=== PATIENT | male | born 1955 | race Two or more races ===

== ENCOUNTER → 2024-05-18 | Outpatient (BNVA) | payer MEDICARE, MEDICAID, SELFPAY | END | disposition home or self-care (01) | PROVIDERS: PCP Nurse Practitioner Family; Referring Provider Nurse Practitioner Family; Visit Provider Urology | DX: N32.3 Diverticulum of bladder (principal); N32.89 Other specified disorders of bladder; N40.1 Benign prostatic hyperplasia with lower urinary tract symptoms; N13.8 Other obstructive and reflux uropathy; F17.210 Nicotine dependence, cigarettes, uncomplicated; E78.00 Pure hypercholesterolemia, unspecified; Z86.73 Personal history of transient ischemic attack (TIA), and cerebral infarction without residual deficits; J44.9 Chronic obstructive pulmonary disease, unspecified | CPT/HCPCS: 52224; 81003; 96372; 99212; A4217; A4649; C1894; J3260; A9270; G0463 ==

== ENCOUNTER → 2024-08-16 | Outpatient (BNVA) | payer MEDICARE, MEDICAID, SELFPAY | END | disposition home or self-care (01) | PROVIDERS: PCP Nurse Practitioner Family; Referring Provider Nurse Practitioner Family; Visit Provider Urology | DX: N40.1 Benign prostatic hyperplasia with lower urinary tract symptoms (principal); R39.12 Poor urinary stream; E78.00 Pure hypercholesterolemia, unspecified; J44.9 Chronic obstructive pulmonary disease, unspecified; Z86.73 Personal history of transient ischemic attack (TIA), and cerebral infarction without residual deficits | CPT/HCPCS: 51741; 51798 ==

== ENCOUNTER → 2024-10-29 | Outpatient (BNVA) | payer MEDICARE, MEDICAID, SELFPAY | END | disposition home or self-care (01) | PROVIDERS: PCP Nurse Practitioner Family; Referring Provider Nurse Practitioner Family; Visit Provider Urology | DX: N40.1 Benign prostatic hyperplasia with lower urinary tract symptoms (principal); N13.8 Other obstructive and reflux uropathy; R31.29 Other microscopic hematuria; Z80.42 Family history of malignant neoplasm of prostate; F17.210 Nicotine dependence, cigarettes, uncomplicated; E78.00 Pure hypercholesterolemia, unspecified; Z86.73 Personal history of transient ischemic attack (TIA), and cerebral infarction without residual deficits; J44.9 Chronic obstructive pulmonary disease, unspecified | CPT/HCPCS: 81003; 99212; G0463 ==

== ENCOUNTER → 2024-12-11 | Outpatient (BNVA) | payer MEDICARE, MEDICAID, SELFPAY | END | disposition home or self-care (01) | PROVIDERS: PCP Nurse Practitioner Family; Referring Provider Nurse Practitioner Family; Visit Provider Urology | DX: N40.1 Benign prostatic hyperplasia with lower urinary tract symptoms (principal); N13.8 Other obstructive and reflux uropathy; R39.198 Other difficulties with micturition; E78.00 Pure hypercholesterolemia, unspecified; Z86.73 Personal history of transient ischemic attack (TIA), and cerebral infarction without residual deficits; J44.9 Chronic obstructive pulmonary disease, unspecified; F17.210 Nicotine dependence, cigarettes, uncomplicated | CPT/HCPCS: 76872 ==

== ENCOUNTER → 2025-01-04 | Outpatient (CLI) | payer MEDICARE, MEDICAID, SELFPAY ==
--- NOTE | 2025-01-04 12:30 | XR_ITS ---
Examination: Abdomen sonogram, complete Date and time of exam: January 04, 2025 1226 hours INDICATIONS: Weight loss beginning several months ago. Technique: Multiple real-time grayscale transabdominal sonographic images of the abdomen have been obtained. Findings: Contracted gallbladder no stones Common bile duct 0.2 cm Pancreatic head 1.83 cm Liver 15.4 cm fatty infiltration Normal hepatopedal portal venous flow Patent IVC Right kidney 11.8 cm cortex 1.3 cm Left kidney 10.5 cm cortex 1.7 cm Moderate renal parenchymal scar formation Spleen 8.0 cm IMPRESSION: Recommend repeating the gallbladder portion of the study with fasting Fatty infiltration throughout the liver Moderate bilateral renal parenchymal scar formation
== END | disposition home or self-care (01) ==
LOC: CDIM 12:06
DX: K76.0 Fatty (change of) liver, not elsewhere classified (principal); N28.89 Other specified disorders of kidney and ureter
CPT/HCPCS: 76700

== ENCOUNTER → 2025-03-01 | Outpatient (CLI) | payer MEDICARE, MEDICAID, SELFPAY ==
--- NOTE | 2025-03-01 10:21 | XR_ITS ---
Examination: CT chest, without intravenous contrast. Sagittal and coronal 2-D reconstructions. Exam date and time: March 01, 2025 1036 hours, comparison August 27, 2024 INDICATIONS: Bilateral pulmonary nodules dating to CT chest March 29, 2023 CTDI:vol (mGy) 7.03 DLP: (mGycm) 265 Technique: Multiple 3.0 mm axial sections of the chest to been obtained. Bone and lung density settings are obtained. Sagittal and coronal 2-D reconstructions have been obtained. Low dose protocols were performed. One or more of the following dose reduction techniques were used; automated exposure control, adjustment of the mA and/or KV according to patient size, use of iterative reconstruction technique. Findings: No thoracic aortic aneurysm dilatation No pulmonary artery emboli. Significant calcification left anterior descending coronary artery. No paratracheal tracheobronchial or bronchopulmonary adenopathy Stable bilateral pulmonary nodules No new pulmonary nodules COPD with areas of airspace destruction. No pneumonia or pulmonary edema No visualized liver or splenic lesion Tiny probable renal arterial calcifications IMPRESSION: Stable bilateral subcentimeter pulmonary nodules No new pulmonary nodules
== END | disposition home or self-care (01) ==
DX: R91.8 Other nonspecific abnormal finding of lung field (principal); Z87.891 Personal history of nicotine dependence
CPT/HCPCS: 71250

== ENCOUNTER → 2025-04-12 | Outpatient (BNVA) | payer MEDICARE, MEDICAID, SELFPAY | END | disposition home or self-care (01) | PROVIDERS: PCP Nurse Practitioner Family; Referring Provider Nurse Practitioner Family; Visit Provider Urology | DX: N40.1 Benign prostatic hyperplasia with lower urinary tract symptoms (principal); N13.8 Other obstructive and reflux uropathy; R35.0 Frequency of micturition; R31.29 Other microscopic hematuria; Z80.42 Family history of malignant neoplasm of prostate; F17.210 Nicotine dependence, cigarettes, uncomplicated; Z71.6 Tobacco abuse counseling | CPT/HCPCS: 81003; 99212; 99213; G0463 ==

== ENCOUNTER 2025-04-29 13:20 | Inpatient (IN) | payer MEDICARE, MEDICAID, SELFPAY ==
[2025-04-29 13:36] VITALS: BP 132/81; PULSE 90; RESP 20; TEMP 36.9; O2SAT 93
--- NOTE | 2025-04-29 13:40 | XR_ITS ---
Examination: CT abdomen and pelvis without contrast. Coronal 3-D reconstructions. Sagittal 2-D reconstructions. Date and time: April 28, 2025, 1457 hours INDICATIONS: Onset abdominal pain today COMPARISON: 03/08/2024 CTDI: vol (mGy): 4.81 DLP: (mGycm): 253 Technique: Axial images of the abdomen have been obtained, 3 mm slice thickness Intravenous contrast material has not been administered. Low dose protocols were performed. One or more of the following dose reduction techniques were used; automated exposure control, adjustment of the mA and/or KV according to patient size, use of iterative reconstruction technique. Findings: No focal liver or splenic lesions Tiny gallstones No pancreatic mass Perinephric stranding Tiny 1 to 3 mm right renal calculi, no hydronephrosis or ureteral calculi Fluid distended small bowel loops No diverticulitis Transverse prostate dimension 4.7 cm No pericecal inflammatory change Prominent osteopenia Mild urinary bladder wall thickening IMPRESSION: Tiny nonobstructing right renal calculi Fluid distended small bowel loops, consider early small bowel obstruction Consider Gastrografin small bowel series follow-up
--- NOTE | 2025-04-29 13:40 | PD.EDRME ---
Rapid Medical Screening Exam [facility] Arrival date/time: 04/29/25 13:20 62-year-old male with no known medical history presents to the emergency room with a chief complaint of right sided abdominal pain x 3 days I have greeted and performed a focused initial assessment of this patient. A comprehensive ED assessment and evaluation of the patient, analysis of all test results, and completion of the medical decision making process will be conducted by additional ED providers. Chief Complaint: Abdominal Pain Time Seen by Provider: 04/29/25 13:35 Vital signs: Vital Signs Temperature 98.5 F 04/29/25 13:36 Pulse Rate 90 04/29/25 13:36 Respiratory Rate 20 04/29/25 13:36 Blood Pressure 132/81 H 04/29/25 13:36 Pulse Oximetry (%) 93 L 04/29/25 13:36 Oxygen Delivery Method Room Air 04/29/25 13:36 Vital signs reviewed by provider: Yes Exam: Right lower quadrant abdominal tenderness, right upper quadrant abdominal tenderness Clear bilateral lung sounds Clinical Impression: Cholelithiasis/cholecystitis/appendicitis/gastroenteritis
--- NOTE | 2025-04-29 13:42 | XR_ITS ---
Examination: Abdomen sonogram, Limited Date and time of exam: 04/29/2025 at 2:22 p.m. INDICATION: Right upper quadrant and right lower quadrant pain for 3 days. Technique: Real-time pino scale transabdominal sonographic images of the upper abdomen obtained. Comparison: Abdominal ultrasound 01/04/2025 Findings: The liver exhibits mildly increased echotexture which is nonspecific. No liver mass identified. Hepatic size is within normal limits, measuring 13.8 cm in length. Patent main portal vein with hepatopetal flow. Patent hepatic veins. The gallbladder is distended but without wall thickening, gallstones or pericholecystic fluid. No abnormal bile duct dilatation. The CBD is measured at 3 mm. The pancreas is obscured by bowel gas. No right upper quadrant ascites. IMPRESSION: Mild diffusely increased hepatic echotexture is nonspecific and could be due to hepatic steatosis, chronic hepatitis in the appropriate clinical setting, amongst other possibilities. No focal liver mass detected. No evidence for cholelithiasis, acute cholecystitis or biliary ductal obstruction.
[2025-04-29] MEDS: ACETAMINOPHEN 500 MG TABLET 1000 MG PO (13:59)
[2025-04-29 14:28] LABS: Basophils # (Auto) 0.0 Thou/mm3 (0.0-0.2); Basophils % (Auto) 0 % (0-2.5); Eosinophils # (Auto) 0.0 Thou/mm3 (0.0-0.5); Eosinophils % (Auto) 0 % (0-10); Hematocrit 38.1 % (41.0-53.0); Hemoglobin 13.1 g/dL (13.5-16.0); Immature Granulocytes Auto 0.05 Thou/mm3 (0.00-0.00); Lymphocytes # (Auto) 0.6 Thou/mm3 (1.0-4.8); Lymphocytes % (Auto) 5 % (10-50); Mean Corpuscular HGB Conc 34.4 g/dl (31.0-37.0); Mean Corpuscular Hemoglobin 32.2 pg (25.0-35.0); Mean Corpuscular Volume 94 fL (80-100); Monocytes # (Auto) 0.4 Thou/mm3 (0.0-0.8); Monocytes % (Auto) 3 % (0-12); Neutrophils # (Auto) 12.0 Thou/mm3 (1.8-7.7); Neutrophils % (Auto) 92 % (37-80); Nucleated Red Blood Cell # 0.00 Thou/mm3 (0.00-0.00); Nucleated Red Blood Cell % 0 /100 WBC (0); Platelet Count 205 Thou/mm3 (140-440); RDW Standard Deviation 47.8 fL (35.1-43.9); Red Blood Count 4.07 Miln/mm3 (4.50-5.90); White Blood Count 13.1 Thou/mm3 (3.8-10.6)
[2025-04-29 14:56] LABS: Alanine Aminotransferase 10 U/L (10-49); Albumin, Serum 4.8 gm/dL (3.4-4.8); Albumin/Globulin Ratio 1.7 (1.2-2.2); Alkaline Phosphatase 70 U/L (46-116); Anion Gap 11 (7-16); Aspartate Amino Transferase 21 U/L (0-34); BUN/Creatinine Ratio 14 Ratio (12-20); Bilirubin,Total 1.2 mg/dL (0.3-1.2); Blood Urea Nitrogen 18 mg/dL (9-23); Calcium 9.7 mg/dL (8.3-10.6); Calcium (Corrected) 9.7 mg/dL (8.5-10.1); Carbon Dioxide 25.6 mMol/L (20.0-31.0); Chloride 101 mMol/L (98-107); Creatinine (Component) 1.3 mg/dL (0.6-1.3); Globulin 2.9 gm/dL (2.3-3.5); Glucose 143 mg/dL (74-106); Lipase 18 U/L (12-53); Osmolality,Calculated 279 (275-295); Potassium 3.7 mMol/L (3.4-5.1); Sodium 138 mMol/L (136-145); Total Protein 7.7 gm/dL (5.7-8.2); eGFR 60 See Note
--- NOTE | 2025-04-29 16:41 | EDNOTE_ITS ---
<Statement entered by Shanthi Chi MD - 05/01/25 16:16> As co-signing physician, I was present and available for consult prn. I concur with the plan and care as documented by the midlevel provider. ED General RME/HPI General Chief complaint: Abdominal Pain Stated complaint: R) RIB/ABD PAIN Time Seen by Provider: 04/29/25 13:35 Arrival date/time: 04/29/25 13:20 CC: Abdominal pain HPI onset 3 days ago progressive increase in severity intermittent nausea no vomiting no BM in the past 3 days no prior history of similar events medications are atorvastatin and tamoxifen. Patient denies chest pain shortness of breath difficulty breathing. RME / HPI RME / HPI narrative: 04/29/25 13:20 62-year-old male with no known medical history presents to the emergency room with a chief complaint of right sided abdominal pain x 3 days I have greeted and performed a focused initial assessment of this patient. A comprehensive ED assessment and evaluation of the patient, analysis of all test results, and completion of the medical decision making process will be conducted by additional ED providers. Exam: Right lower quadrant abdominal tenderness, right upper quadrant abdominal tenderness Clear bilateral lung sounds Impression: Cholelithiasis/cholecystitis/appendicitis/gastroenteritis Related Data Home Medications ?Medication ?Instructions ?Recorded ?Confirmed atorvastatin 40 mg tablet 40 mg PO HS 10/15/20 5 gabapentin 600 mg tablet 600 mg PO Q12H 04/29/2509/18 Previous Rx's ?Medication ?Instructions ?Recorded tamsulosin 0.4 mg capsule 0.4 mg PO QDAY #30 caps 09/26 02/14 Allergies Allergy/AdvReac Type Severity Reaction Status Date / Time ibuprofen Allergy Mild itching Verified 04/29/25 13:26 Review of Systems Review of Systems Narrative Review of Systems: GEN: No fever, no chills, no weight loss EYES: No discharge, no visual changes, no pain HEENT: No ear pain, no congestion, no sore throat PULM: No shortness of breath, no cough, no congestion CV: No chest pain, no dyspnea on exertion, no palpitations GI: No nausea, no vomiting, no diarrhea, + pain, no constipation : No frequency, no urgency, no dysuria MUSC/SKEL: No joint pain, no back pain SKIN: No rash PSYCH: No hallucinations, no depression HEME/LYMPH: No easy bleeding or bruising tendencies NEURO: No weakness, no headache Past Medical History Past Medical History NEUROLOGIC: Positive Neurological Disorders (involuntary movements to upper and lower extremities, started 09/2020), Cerebrovascular Accident and Peripheral Neuropathy (lower limb nerve pain-takes medication) CARDIAC: Positive Cardiac Disorders (peripheral vascular angioplasty) and Hypercholesterolemia; Negative Congestive Heart Failure RESPIRATORY: Positive Chronic Obstructive Pulmonary Disease (COPD) GASTROINTESTINAL: Negative Gastrointestinal Disorders GENITOURINARY: Positive Genitourinary Disorders (trouble urinating) and Benign Prostatic Hyperplasia; Negative Renal Disease MUSCULOSKELETAL: Positive Musculoskeletal Disorders and Arthritis ENDOCRINE: Positive Graves' Disease; Negative Endocrine Disorders, Diabetes Mellitus Type 1 or Diabetes Mellitus Type 2 HEMATOLOGIC: Positive Blood Disorders and Anemia OTHER HISTORY: Positive Blood Transfusions (2009); Negative Blood Transfusion Reaction, Anesthesia Reactions or Cancer Surgical History SURGICAL: Positive Cardiac Surgery ( unplug veins from leg ) and Angiogram (peripheral vascular angioplasty with intervention of left AT); Negative Endocrine Surgery, Abdominal Surgery or Joint Replacement Social History SMOKING STATUS: Current every day smoker ED Exam Narrative Physical exam: [General: In moderate discomfort but not in any acute distress Head normocephalic HEENT: Within acceptable limits Neck is supple nontender Chest equal chest rise nontender to palpation Respiratory: Clear to auscultation no wheezes crackles or rubs CV: Rate rhythm is regular no murmurs rubs or clicks Abdomen is flat, diffusely tender throughout reflexive guarding but no rebound tenderness Back: No CVA tenderness no spinous process tenderness from cervical spine thoracic and lumbar spine Skin: Intact no petechiae rash induration ulceration or crepitus Extremities: Moving all extremity against resistance cap refill less than 2 seconds neurosensory intact Neuro: Awake alert oriented x3 Glascow coma 15 no focal deficits] Course Course Course Narrative: Patient's case clinical presentation laboratory results and imaging discussed with the resident for Dr. Rider who agrees except the patient for admission for SBO. Quality Measures none Orders Category Date Time Status Admit to Inpatient Status Routine Admission 04/29/25 17:19 Active Patient Condition Routine Admission 04/29/25 17:19 Ordered Continuous Pulse Oximetry NOW Care 04/29/25 17:19 Completed Insert NG / OG tube NOW Care 04/29/25 16:57 Active Miscellaneous Nursing Order NOW Care 04/29/25 17:27 Active Notify provider NEEDED Care 04/29/25 17:19 Active Obtain weight NOW Care 04/29/25 17:19 Active Vital Signs, Non-Routine [id number] Care 04/29/25 19:[address] abdomen pelvis wo con Stat Exams 04/29/25 13:40 Completed US gall bladder Stat Exams 04/29/25 13:42 Completed XR chest 1V post procedure Stat Exams 04/29/25 17:16 Completed XR small bowel single contrast Stat Exams 04/29/25 16:31 Ordered CBC AM DRAW Lab 04/30/25 05:00 Ordered CBC AM DRAW Lab 05/01/25 05:00 Ordered CBC AM DRAW Lab 05/02/25 05:00 Ordered CBC AM DRAW Lab 05/03/25 05:00 Ordered CBC AM DRAW Lab 05/04/25 05:00 Ordered CBC AM DRAW Lab 05/05/25 05:00 Ordered CBC Stat Lab 04/29/25 14:11 Completed CMP [Comprehensive Metabolic Panel] AM DRAW Lab 04/30/25 05:00 Ordered CMP [Comprehensive Metabolic Panel] AM DRAW Lab 05/01/25 05:00 Ordered CMP [Comprehensive Metabolic Panel] AM DRAW Lab 05/02/25 05:00 Ordered CMP [Comprehensive Metabolic Panel] AM DRAW Lab 05/03/25 05:00 Ordered CMP [Comprehensive Metabolic Panel] AM DRAW Lab 05/04/25 05:00 Ordered CMP [Comprehensive Metabolic Panel] AM DRAW Lab 05/05/25 05:00 Ordered CMP [Comprehensive Metabolic Panel] Stat Lab 04/29/25 14:11 Completed Lipase Stat Lab 04/29/25 14:11 Completed Magnesium AM DRAW Lab 04/30/25 05:00 Ordered Magnesium AM DRAW Lab 05/01/25 05:00 Ordered Magnesium AM DRAW Lab 05/02/25 05:00 Ordered Magnesium AM DRAW Lab 05/03/25 05:00 Ordered Magnesium AM DRAW Lab 05/04/25 05:00 Ordered Magnesium AM DRAW Lab 05/05/25 05:00 Ordered Phosphorous AM DRAW Lab 04/30/25 05:00 Ordered Phosphorous AM DRAW Lab 05/01/25 05:00 Ordered Phosphorous AM DRAW Lab 05/02/25 05:00 Ordered Phosphorous AM DRAW Lab 05/03/25 05:00 Ordered Phosphorous AM DRAW Lab 05/04/25 05:00 Ordered Phosphorous AM DRAW Lab 05/05/25 05:00 Ordered UA [Urinalysis] Stat Lab 04/29/25 16:36 Completed Urine Culture Stat Lab 04/29/25 16:36 Received Acetaminophen Ivpb [Ofirmev Inj] Med 04/29/25 17:29 Active 1,000 mg in 100 ml IV Q6HR Acetaminophen Tab [Tylenol ES Tab] Med 04/29/25 13:40 Discontinued 1,000 mg PO X1 ONE Enoxaparin [Lovenox] Med 04/30/25 09:00 Active 40 mg SC QDAY HYDROmorphone INJ [Dilaudid Inj] Med 04/29/25 17:24 Active 1 mg IVP Q4HR PRN LORazepam [Ativan Inj] Med 04/29/25 17:29 Discontinued 2 mg .ROUTE .STK-MED ONE Morphine* Inj Med 04/29/25 17:24 Active 4 mg IVP Q6HR PRN Morphine* Inj Med 04/29/25 17:18 Discontinued 4 mg IVP X1 ONE Ondansetron Inj [Zofran Inj] Med 04/29/25 17:19 Active 4 mg IVP Q6H PRN Ondansetron Inj [Zofran Inj] Med 04/29/25 17:18 Discontinued 4 mg IVP X1 ONE Ringers Lactated 1000 ml [Lactated Ringers] 1,000 ml Med 04/29/25 17:30 Active IV 75 mls/hr Ringers Lactated 1000 ml [Lactated Ringers] 1,000 ml Med 04/29/25 16:40 Discontinued IV 999 mls/hr Sodium Chloride 0.9% 1000 ml [Ns] 1,000 ml Med 04/29/25 16:40 Discontinued IV 125 mls/hr Code Status Routine Oth 04/29/25 17:19 Ordered Oxygen Delivery DAILY RT 04/29/25 17:21 Active Oxygen Delivery NOW RT 04/29/25 17:21 Active Vital Signs Vital signs: Vital Signs Temperature 98.5 F 04/29/25 13:36 Pulse Rate 90 04/29/25 13:36 Respiratory Rate 20 04/29/25 13:36 Blood Pressure 132/81 H 04/29/25 13:36 Pulse Oximetry (%) 93 L 04/29/25 13:36 Oxygen Delivery Method Room Air 04/29/25 13:36 Discharge Plan Plan Patient Disposition: Admit Acute Care w/in Hospital Problem List Clinical Impression: SBO (small bowel obstruction) TIFFANY/VALDEZ Supervising Physician TIFFANY/VALDEZ Supervising Physician: Lucho Blas ENP [facility] Clinical Information Provided by: patient Medical Records reviewed [facility] Meds/Rx considered, not ordered None Labs/Rad/Tests considered, not ordered None Chronic Illness/Social Conditions Explain: Hyperlipidemia prostatitis EKG EKG not done Labs Labs: interpreted by me Lab(s) Interpretation(s): CBC shows leukocytosis of 13.1 H&H of 13.1 and 38.1 respectively no thrombocytopenia CMP shows no significant electrolyte imbalances other than a glucose of 143 no renal impairment transaminitis or T. bili elevation Lipase at 18. Imaging Imaging interpretation: interpreted by me Imaging Interpretation(s): Gallbladder is unremarkable CT as interpreted by me read by radiology shows an SBO. Medication Administration(s) Medication Administration History Enoxaparin Sodium (Enoxaparin Sod Inj 40 Mg/0.4 Ml Syringe) 40 mg SC QDAY [facility] Stop: 05/14/25 08:59 Hydromorphone HCl (Hydromorphone Inj 2 Mg/Ml Vial) 1 mg IVP Q4HR PRN PRN Reason: Pain 8-10 Stop: 05/04/25 17:23 Lactated Ringer's (Lactated Ringers) 1,000 mls @ 75 mls/hr IV .[id number] ABRAHAM Stop: 05/29/25 17:29 Last Admin: 04/29/25 22:11 Dose: 75 mls/hr Documented By: AU Acetaminophen (Ofirmev Inj) 1,000 mg in 100 mls @ 250 mls/hr IV Q6HR ABRAHAM Stop: 04/30/25 12:23 Last Admin: 04/29/25 18:29 Dose: 250 mls/hr Documented By: BY Morphine Sulfate (Morphine Sulf Inj 4 Mg/Ml Vial) 4 mg IVP Q6HR PRN PRN Reason: pain 5-7 Stop: 05/04/25 17:23 Ondansetron HCl (Ondansetron Inj 2 Mg/Ml Inj 2 Ml) 4 mg IVP Q6H PRN; Protocol PRN Reason: NAUSEA OR VOMITING Stop: 05/29/25 17:18 Discontinued Medications Acetaminophen (Acetaminophen 500 Mg Tablet) 1,000 mg PO X1 ONE Stop: 04/29/25 13:41 Last Admin: 04/29/25 13:59 Dose: 1,000 mg Documented By: MIRANDA Lactated Ringer's (Lactated Ringers) 1,000 mls @ 999 mls/hr IV .Q1H1M ONE Stop: 04/29/25 17:40 Last Infusion: 04/29/25 19:42 Dose: Infused Documented By: Admin: 04/29/25 16:52 Dose: 999 mls/hr Documented By: RANULFO Sodium Chloride (Ns) 1,000 mls @ 125 mls/hr IV .Q8H ABRAHAM Stop: 05/29/25 16:39 Last Admin: 04/29/25 16:52 Dose: 125 mls/hr Documented By: RANULFO Lorazepam (Lorazepam 2 Mg/Ml Vial) Confirm Administered Dose 2 mg .ROUTE .STK- MED ONE Stop: 04/29/25 17:30 Last Admin: 04/29/25 19:31 Dose: Not Given Documented By: RANULFO Non-Admin Reason: Override Medication Comments: THIS MEDS WAS PULLED FOR PT [id number] FOR ACTIVE SZ, PT [id number] WAS NOT YET IN SYSTEM, MED WAS WASTED WITH RAYO CHEN Morphine Sulfate (Morphine Sulf Inj 4 Mg/Ml Vial) 4 mg IVP X1 ONE Stop: 04/29/25 17:19 Last Admin: 04/29/25 17:26 Dose: 4 mg Documented By: RANULFO Ondansetron HCl (Ondansetron Inj 2 Mg/Ml Inj 2 Ml) 4 mg IVP X1 ONE; Protocol Stop: 04/29/25 17:19 Last Admin: 04/29/25 17:26 Dose: 4 mg Documented By: RANULFO
[2025-04-29 16:45] LABS: Collection Type, Urine Clean Catch
[2025-04-29 16:49] VITALS: BP 128/75; PULSE 80; RESP 18; O2SAT 95
[2025-04-29] MEDS: RINGERS LACTATED 1000 ML 1,000 ML 999 ML IV (16:52)
[2025-04-29] MEDS: SODIUM CHLORIDE 0.9% 1000 ML 1,000 ML 125 ML IV (16:52)
[2025-04-29 17:02] LABS: Bilirubin,Urine Negative (Negative); Blood,Urine 3+ (Negative); Color,Urine Yellow (Lt Yel-Yel); Glucose, Urine Negative (Negative); Granular Casts,Urine < 1 /hpf (0-1); Hyaline Casts,Urine < 1 /hpf (0-1); Ketones,Urine Negative (Negative); Leukocyte Esterase,Urine Negative (Negative); Nitrite,Urine Negative (Negative); PH,Urine 6.0 (5.0-7.0); Protein,Urine 1+ (Neg - Trace); RBC,Urine 33 /hpf (0-3); Specific Gravity,Urine 1.019 (1.001-1.035); Squamous Epithelial Cell,Urine 4 /hpf (0-5); Urobilinogen,Urine Negative mg/dL (0.0-1.0); WBC,Urine 3 /hpf (0-5)
[2025-04-29 17:04] LABS: Clarity,Urine Hazy (Clear/Hazy)
--- NOTE | 2025-04-29 17:16 | XR_ITS ---
CLINICAL INDICATION: ng placement TECHNIQUE: XR chest 1V post procedure Exam date and time: 04/29/2025, 5:36 p.m. COMPARISON: Chest radiograph 10/14/2020, same day CT abdomen/pelvis of 04/29/2025 at 3:00 p.m. FINDINGS: Interval placement of NG tube. The NG tube is curled at the distal most esophagus and its tip reflects back up the esophagus to the level of the aortic arch. The cardiomediastinal silhouette is within normal limits. Coarse parenchymal markings with lower lung zone predominance are present bilaterally. Same day CT shows interstitial changes and emphysema in these regions. No segmental or lobar consolidation. No pleural effusion or pneumothorax. No acute osseous abnormality detected. IMPRESSION: Abnormal position of the NG tube, with its tip located at the level of the aortic arch as described. Otherwise, no radiographic evidence for acute cardiopulmonary abnormality. - This report was generated utilizing speech recognition software. -
[2025-04-29] MEDS: ONDANSETRON INJ 2 MG/ML INJ 2 ML 4 MG IVP (17:26)
[2025-04-29] MEDS: MORPHINE SULF INJ 4 MG/ML VIAL IVP (17:26)
--- NOTE | 2025-04-29 17:27 | ESHP_ITS ---
<Statement entered by Madhuri Grider MD - 04/30/25 18:04> Mr. Danielle is a 70 year old male with PMH of HLD, BPH presented to the ED complaining of severe abdominal pain which started couple days ago. Pt states he he has not had a bowel movement since Tuesday. Denies any nausea or vomiting but does complain of severe rebound tenderness. Patient denies any surgical history or known malignancy. Imaging is evident of small bowel obstruction, NG tube is placed on low intermittent suction. Will start Gastrografin if there is no output. Will continue to monitor GI series and will place the patient n.p.o. Patient was seen and examined by me personally. I have directly supervised and reviewed documentation by the team resident and agree with its findings. ------- Plan of care was discussed with the attending, Dr. Tereso Grider, PGY-2 Documentation for date of: 04/29/25 HPI History of Present Illness History of present illness: Mr. Danielle is a 70 year old gentleman with a hx of HLD, BPH, and neuropathy. He presents to the ED with severe abdominal pain that began on 04/27. He states that it is 7/10 at present and that he did not take anything at home for the pain, he endorses having BM on 04/28 in the AM which was diarrhea. He states that he had subjective fevers and chills.He denies having nausea or vomiting at home and was able to tolerate food. He states that he has never had any abdominal surgeries in the past and that this is the first time that something like this has ever happened. PSH: none Social: pt is on disability, and endorses extensive smoking history for several years Meds: Atorvostatin 40, tamsulosin 0.4 Allergies: Ibuprofen (itching) ROS endorses fever, chills, abdominal pain, denies, nausea, vomiting, headache, chest pain ED course VSS: Afebrile, bp 128/75, satting 95% on RA, pulse 80 Labs notable for leukocytosis WBC 13, UA bland, Cr 1.3, lipase 18 Tx - LR - APAP - Morphine 4 mg IVP x1 - NG tube placed on LIS Exam Vital Signs Temp Pulse Resp BP Pulse Ox O2 Del Method 98.5 F 80 18 128/75 95 Room Air 04/29/25 13:36 04/29/25 16:49 04/29/25 16:49 04/29/25 16:49 04/29/25 16:49 04/29/25 16:49 Narrative Exam GENERAL: no acute distress, reports severe abdominal pain , AAO x3, laying in bed, tremulous HEENT: Head AT/ NC. Mucous membranes dry. PERRL. NECK: Supple, no lymphadenopathy, no carotid bruits. CARDIOVASCULAR: RRR. Normal S1/S2, No m/r/g. No pitting edema of bilateral LEs. RESPIRATORY: some expiratory wheezing, GASTROINTESTINAL: Abdomen soft, very tender to light palpation with voluntary guarding, no rebound tenderness. Bowel sounds absent , non distended. MUSCULOSKELETAL:? No cyanosis or edema, no visible joint swelling. arthritic hand joints NEUROLOGICAL: CN II-XII grossly intact. No focal deficits. Sensation intact, symmetric. tremulous PSYCHIATRIC: Awake and alert, not agitated, normal mood and affect. SKIN: No obvious rashes, no jaundice, normal turgor. Results: Labs 04/30/25 04:44 04/30/25 04:44 Labs: Short CBC 04/29/25 Range/Units 14:11 WBC 13.1 H (3.8-10.6) Thou/mm3 Hgb 13.1 L (13.5-16.0) g/dL Hct 38.1 L (41.0-53.0) % Plt Count 205 (140-440) Thou/mm3 BMP 04/29/25 14:11 Sodium 138 Potassium 3.7 Chloride 101 Carbon Dioxide 25.6 BUN 18 Creatinine 1.3 Glucose 143 H Calcium 9.7 Liver Function 04/29/25 Range/Units 14:11 Total Bilirubin 1.2 (0.3-1.2) mg/dL AST 21 (0-34) U/L ALT 10 (10-49) U/L Alkaline Phosphatase 70 (46-116) U/L Albumin 4.8 (3.4-4.8) gm/dL Urine 04/29/25 Range/Units 16:36 Urine Color Yellow (Lt Yel-Yel) Urine Clarity Hazy (Clear/Hazy) Urine pH 6.0 (5.0-7.0) Ur Specific [place] 1.019 (1.001-1.035) Urine Protein 1+ A (Neg - Trace) Urine Glucose (UA) Negative (Negative) Quality Measures Quality Measures VTE prophylaxis Advance care planning discussed with:: patient Medications Home Medications and Allergies Home Medications ?Medication ?Instructions ?Recorded ?Confirmed ?Type atorvastatin 40 mg tablet 40 mg PO HS 10/15/20 5 History gabapentin 600 mg tablet 600 mg PO Q12H 04/29/2509/18 History Allergies Allergy/AdvReac Type Severity Reaction Status Date / Time ibuprofen Allergy Mild itching Verified 04/29/25 13:26 Visit Medications Enoxaparin Sodium (Enoxaparin Sod Inj 40 Mg/0.4 Ml Syringe) 40 mg SC QDAY [facility] Stop: 05/14/25 08:59 Hydromorphone HCl (Hydromorphone Inj 2 Mg/Ml Vial) 1 mg IVP Q4HR PRN PRN Reason: Pain 8-10 Stop: 05/04/25 17:23 Lactated Ringer's (Lactated Ringers) 1,000 mls @ 999 mls/hr IV .Q1H1M ONE Stop: 04/29/25 17:40 Last Admin: 04/29/25 16:52 Dose: 999 mls/hr Sodium Chloride (Ns) 1,000 mls @ 125 mls/hr IV .Q8H [facility] Stop: 05/29/25 16:39 Last Admin: 04/29/25 16:52 Dose: 125 mls/hr Lactated Ringer's (Lactated Ringers) 1,000 mls @ 75 mls/hr IV .[id number] [facility] Stop: 05/29/25 17:29 Morphine Sulfate (Morphine Sulf Inj 4 Mg/Ml Vial) 4 mg IVP Q6HR PRN PRN Reason: pain 5-8 Stop: 05/04/25 17:23 Ondansetron HCl (Ondansetron Inj 2 Mg/Ml Inj 2 Ml) 4 mg IVP Q6H PRN; Protocol PRN Reason: NAUSEA OR VOMITING Stop: 05/29/25 17:18 Discontinued Medications Acetaminophen (Acetaminophen 500 Mg Tablet) 1,000 mg PO X1 ONE Stop: 04/29/25 13:41 Last Admin: 04/29/25 13:59 Dose: 1,000 mg Morphine Sulfate (Morphine Sulf Inj 4 Mg/Ml Vial) 4 mg IVP X1 ONE Stop: 04/29/25 17:19 Last Admin: 04/29/25 17:26 Dose: 4 mg Ondansetron HCl (Ondansetron Inj 2 Mg/Ml Inj 2 Ml) 4 mg IVP X1 ONE; Protocol Stop: 04/29/25 17:19 Last Admin: 04/29/25 17:26 Dose: 4 mg Assessment & Plan Plan Mr. Danielle is a 70 year old gentleman with hx of BPH with urinary retention, HLD, with no hx of prior abdominal surgeries who was found to have dilated loops of small bowel on CTAP, admitted for SBO, NPO with NG tube in place, pending gastrogaffin small bowel series. SBO Ddx sbo vs mesinteric ischemia vs pancreatitis vs malignancy CTAP Tiny nonobstructing right renal calculi fluid distended small bowel loops, consider early small bowel obstruction GB US: No evidence for cholelithiasis, acute cholecystitis or biliary ductal obstruction. leukoyctosis likely reactive rather than infectious, he endorsed fevers and chills for the past 2 days and minimal appetite Plan: NPO NG tube on LIS Gastrogaffin small bowel series GIOVANA Baseline Cr 0.8, now 1.3 likely prerenal 2/2 diminished po intake Plan: LR 75 cc/hr BPH with urinary retention follows with [facility] home tamsulosin 0.4 qd , holding given npo Plan bladder scan q4 and straight cath as needed >300cc HLD hold home atorvastatin 40 qhs given npo Tobacco Use Disorder BL Pulmonary Nodules - stable CT chest: Bilateral pulmonary nodules dating to CT chest March 29, 2023- Stable bilateral subcentimeter pulmonary nodules Plan -continue outpatient f/u with low dose cts -discussed smoking cessation, pt not interested, will provide info on cessation if interested. Mild Normocytic Anemia hgb 13 Dispo: medsurg, npo with ng tube to LIS, pending initiation of gastrogaffin series. Diet: npo Bowel Reg: gastrogaffin small bowel series VTE ppx: lovenox 40 sc GI ppx: not indicated Code status: FULL Plan discussed with my attending Dr. Rider and my senior resident Dr. Ralf Morris MD PGY1 Attending Provider Attestation/Addendum Cynthia Oshea, , attest that I was physically present for the espino portions of the service and evaluated the patient with the resident and I reviewed and discussed the case with the resident and agree with the resident's findings and plans of care as documented above Patient is a 70-year-old male with past medical history of BPH, hyperlipidemia, bilateral lower extremity neuropathy who presents to the ED with worsening abdominal pain that began Tuesday. Patient states that his last meal was on Tuesday and has had poor appetite since. His last bowel movement was diarrhea that happened at midnight on Tuesday. He reports having chills and worsening distention of his abdomen. He denies nausea or vomiting otherwise. Patient has never had similar episodes in the past. Due to worsening pain he presented to the ED. CT abdomen pelvis was done in the ED showing tiny nonobstructing right renal calculi and fluid distended small bowel loops concerning for early small bowel obstruction. Patient states he has never had any abdominal surgeries in the past. Gallbladder ultrasound was also done showing mild diffusely increased hepatic echotexture and stenosis basic which could be due to hepatic steatosis, chronic hepatitis otherwise. NG tube was placed in ED. Will place on low intermittent suction. Will do Gastrografin small bowel follow-through in AM. Will continue with pain control as needed. Will admit patient to [facility] for further workup and medical management of SBO. Will give IV fluids and follow-up with abdominal x-ray. If SBO does not resolve with small bowel follow-through, will consult surgeon.
[2025-04-29 18:26] VITALS: BP 122/74; PULSE 71; PULSE 73; RESP 16; O2SAT 95; O2SAT 96
[2025-04-29 18:27] VITALS: BMI 19.5
[2025-04-29] MEDS: ACETAMINOPHEN IVPB 1,000 MG/100 ML VIAL 250 MG IV (18:29)
[2025-04-29 19:16] VITALS: BP 116/65; PULSE 66; RESP 16; O2SAT 95
--- NOTE | 2025-04-29 19:41 | XR_ITS ---
EXAMINATION: AP chest single view TECHNIQUE: AP portable sitting chest single view Date and time: April 29, 2025, 2012 hours INDICATIONS: Post orogastric tube placement FINDINGS: Orogastric tube sidehole is 3 cm distal to the gastroesophageal junction Mild prominence left ventricle Moderate vascular congestion Accentuation of the basilar bronchovascular markings IMPRESSION: Recommend advancing the orogastric tube 4 cm
[2025-04-29 20:30] VITALS: BMI 20.1
[2025-04-29 20:52] VITALS: BP 129/69; PULSE 69; RESP 18; TEMP 36.2; O2SAT 93
--- NOTE | 2025-04-29 22:00 | XR_ITS ---
EXAMINATION: AP chest single view TECHNIQUE: AP portable upright chest single view Date and time: April 29, 2025, 1128 hours INDICATIONS: Post orogastric tube placement FINDINGS: Orogastric tube in the stomach satisfactory position Minor prominence Lipantil: Ectatic thoracic aorta IMPRESSION: Orogastric tube satisfactory position
[2025-04-29] MEDS: RINGERS LACTATED 1000 ML 1,000 ML 75 ML IV (22:11)
[2025-04-30] VITALS: BP 135/73; PULSE 70; RESP 16; TEMP 36.8; O2SAT 94
--- NOTE | 2025-04-30 | XR_ITS ---
Examination: Abdomen AP single view Technique: AP portable supine abdomen, single view Exam date and time: 04/30/2025, 2:06 p.m. INDICATION: Small bowel series, follow-up bowel obstruction, 12-hour film COMPARISON: Same day abdominal radiograph, 04/30/2025 at 12:14 p.m. FINDINGS: There is persistent contrast retention within the gastric fundus which is slightly less distended since the preceding exam. No significant change in the positioning of the nasogastric tube in the proximal gastric antrum. Redemonstration of extensive dilatation of multiple small bowel loops throughout the abdomen and pelvis with contrast and gas, also not significantly changed in the interim. Contrast is still not visualized in the colon, consistent with complete small bowel obstruction. IMPRESSION: Complete small bowel obstruction, with no significant change in diffuse contrast and gaseous distention of multiple small bowel loops. Slightly improved gastric distention in the interim. No contrast in the colon at 12 hours from the start of the exam.
--- NOTE | 2025-04-30 00:26 | PC.NURSE ---
Pt able to urinate without the need for a catheter. Pt voided 100 ml at bedside in urinal.
--- NOTE | 2025-04-30 01:02 | PC.NURSE ---
Dr. John at bedside verbal order to keep on LIS until XR starts gastrogastrin bowel series.
--- NOTE | 2025-04-30 02:00 | XR_ITS ---
EXAMINATION: Upper GI series Abdomen AP supine 6 views Date and time: April 30, 2025, 0159 hours INDICATIONS: Abdominal pain and distention this week, fluid distended small bowel loops on CT abdomen pelvis April 29, 2025 TECHNIQUE AND FINDINGS: 120 cc Gastrografin administered through the orogastric tube 1 minute, 30-minute, 1 hour, 2-hour, 4-hour, 6-hour abdomen films obtained Multiple contrast distended small bowel loops IMPRESSION: Small bowel obstruction pattern Recommend follow-up abdomen films 10:00 a.m. 12 noon
[2025-04-30] MEDS: HYDROmorphone INJ 2 MG/ML VIAL 1 MG IVP (02:09)
[2025-04-30 04:00] VITALS: BP 132/77; PULSE 73; RESP 18; TEMP 36.4; O2SAT 93
[2025-04-30 05:16] LABS: Lactate (Lactic Acid) 1.6 mMol/L (0.4-2.0)
[2025-04-30 05:19] LABS: Basophils # (Auto) 0.1 Thou/mm3 (0.0-0.2); Basophils % (Auto) 0 % (0-2.5); Eosinophils # (Auto) 0.0 Thou/mm3 (0.0-0.5); Eosinophils % (Auto) 0 % (0-10); Hematocrit 36.5 % (41.0-53.0); Hemoglobin 12.5 g/dL (13.5-16.0); Immature Granulocytes Auto 0.04 Thou/mm3 (0.00-0.00); Lymphocytes # (Auto) 0.6 Thou/mm3 (1.0-4.8); Lymphocytes % (Auto) 5 % (10-50); Mean Corpuscular HGB Conc 34.2 g/dl (31.0-37.0); Mean Corpuscular Hemoglobin 32.6 pg (25.0-35.0); Mean Corpuscular Volume 95 fL (80-100); Monocytes # (Auto) 0.3 Thou/mm3 (0.0-0.8); Monocytes % (Auto) 3 % (0-12); Neutrophils # (Auto) 10.6 Thou/mm3 (1.8-7.7); Neutrophils % (Auto) 92 % (37-80); Nucleated Red Blood Cell # 0.00 Thou/mm3 (0.00-0.00); Nucleated Red Blood Cell % 0 /100 WBC (0); Platelet Count 172 Thou/mm3 (140-440); RDW Standard Deviation 48.9 fL (35.1-43.9); Red Blood Count 3.84 Miln/mm3 (4.50-5.90); White Blood Count 11.6 Thou/mm3 (3.8-10.6)
[2025-04-30] MEDS: MORPHINE SULF INJ 4 MG/ML VIAL IVP ×2 (05:55→16:19)
[2025-04-30] MEDS: ACETAMINOPHEN IVPB 1,000 MG/100 ML VIAL 250 MG IV ×2 (06:00→12:55)
[2025-04-30 06:14] LABS: Alanine Aminotransferase 8 U/L (10-49); Albumin, Serum 4.2 gm/dL (3.4-4.8); Albumin/Globulin Ratio 1.7 (1.2-2.2); Alkaline Phosphatase 59 U/L (46-116); Anion Gap 9 (7-16); Aspartate Amino Transferase 19 U/L (0-34); BUN/Creatinine Ratio 15 Ratio (12-20); Bilirubin,Total 0.9 mg/dL (0.3-1.2); Blood Urea Nitrogen 18 mg/dL (9-23); Calcium 9.6 mg/dL (8.3-10.6); Calcium (Corrected) 9.6 mg/dL (8.5-10.1); Carbon Dioxide 25.0 mMol/L (20.0-31.0); Chloride 104 mMol/L (98-107); Creatinine (Component) 1.2 mg/dL (0.6-1.3); Estimated Creatinine Clearance 48.5 mL/min (>60); Globulin 2.5 gm/dL (2.3-3.5); Glucose 118 mg/dL (74-106); Magnesium 1.7 mg/dL (1.6-2.6); Osmolality,Calculated 278 (275-295); Phosphorous 4.0 mg/dL (2.4-5.1); Potassium 4.1 mMol/L (3.4-5.1); Sodium 138 mMol/L (136-145); Total Protein 6.7 gm/dL (5.7-8.2); eGFR > 60 See Note
[2025-04-30 08:00] VITALS: BP 128/79; PULSE 62; RESP 16; TEMP 36.6; O2SAT 96
--- NOTE | 2025-04-30 08:23 | ESPR_ITS ---
<Statement entered by aMdhuri Grider MD - 04/30/25 18:06> Patient is seen at bedside continues to be in significant abdominal pain. Patient endorses to abdominal tenderness on palpation. Bladder scan shows 353 cc of urine and straight cath is ordered. Patient states he has had a long time problems with urination and is unable to void completely but has not seen a urologist or takes any medications. Due to significant discomfort from SBO as well as urinary retention Hollingsworth catheter is ordered. GI series shows complete blockage without improvement in the SBO. Surgery is consulted for further evaluation. Patient was seen and examined by me personally. I have directly supervised and reviewed documentation by the team resident and agree with its findings. ------- Plan of care was discussed with the attending, Dr. Tereso Grider, PGY-2 Documentation for date of: 04/30/25 Subjective Subjective Interval history: small bowel series on going today with gastrogaffin and no significant bingham in the films with sbo pattern after 10 hrs of initiation pt denies passing gas, bowel sounds are present, and abdomen is more distended than on admission may require surgery consult if he continues to have lack of resolution of sbo with gastrogaffin . Exam Vital Signs Temp Pulse Resp BP Pulse Ox O2 Del Method 97.6 F 73 18 132/77 H 93 L Room Air 04/30/25 04:00 04/30/25 04:00 04/30/25 04:00 04/30/25 04:00 04/30/25 04:00 04/30/25 04:00 Narrative Exam GENERAL: no acute distress, AAO x3, laying in bed, HEENT: Head AT/ NC. Mucous membranes dry. PERRL. NECK: Supple, no lymphadenopathy, no carotid bruits. CARDIOVASCULAR: RRR. Normal S1/S2, No m/r/g. No pitting edema of bilateral LEs. RESPIRATORY: some expiratory wheezing, GASTROINTESTINAL: Abdomen soft, very tender to light palpation with voluntary guarding, no rebound tenderness. Bowel sounds present , notably more distended. MUSCULOSKELETAL:? No cyanosis or edema, no visible joint swelling. arthritic hand joints NEUROLOGICAL: CN II-XII grossly intact. No focal deficits. Sensation intact, symmetric. tremulous PSYCHIATRIC: Awake and alert, not agitated, normal mood and affect. SKIN: No obvious rashes, no jaundice, normal turgor. Objective Labs 05/01/25 05:02 05/01/25 05:02 Labs: Laboratory Results - last 24 hr 04/29/25 04/29/25 04/30/25 14:11 16:36 04:44 WBC 13.1 H 11.6 H RBC 4.07 L 3.84 L Hgb 13.1 L 12.5 L Hct 38.1 L 36.5 L MCV 94 95 MCH 32.2 32.6 MCHC 34.4 34.2 RDW Std Deviation 47.8 H 48.9 H Plt Count 205 172 D Neut % (Auto) 92 H 92 H Lymph % (Auto) 5 L 5 L [place] % (Auto) 3 3 Eos % (Auto) 0 0 Baso % (Auto) 0 0 Neut # (Auto) 12.0 H 10.6 H Lymph # (Auto) 0.6 L 0.6 L [place] # (Auto) 0.4 0.3 Eos # (Auto) 0.0 0.0 Baso # (Auto) 0.0 0.1 Immature Gran # (Auto) 0.05 H 0.04 H Absolute Nucleated RBC 0.00 0.00 Immature Gran % 0 0 Nucleated RBC % 0 0 Sodium 138 138 Potassium 3.7 4.1 Chloride 101 104 Carbon Dioxide 25.6 25.0 Anion Gap 11 9 BUN 18 18 Creatinine 1.3 1.2 Estim Creat Clear Calc Not Performed. 48.5 L eGFR 60 > 60 BUN/Creatinine Ratio 14 15 Glucose 143 H 118 H Calculated Osmolality 279 278 Lactic Acid 1.6 Calcium 9.7 9.6 Corrected Calcium 9.7 9.6 Phosphorus 4.0 Magnesium 1.7 Total Bilirubin 1.2 0.9 AST 21 19 ALT 10 8 L Alkaline Phosphatase 70 59 Total Protein 7.7 6.7 Albumin 4.8 4.2 D Globulin 2.9 2.5 Albumin/Globulin Ratio 1.7 1.7 Lipase 18 Ur Collection Type Clean Catch Urine Color Yellow Urine Clarity Hazy Urine pH 6.0 Ur Specific [place] 1.019 Urine Protein 1+ A Urine Glucose (UA) Negative Urine Ketones Negative Urine Blood 3+ A Urine Nitrite Negative Urine Bilirubin Negative Urine Urobilinogen (Auto) Negative Ur Leukocyte Esterase Negative Urine RBC 33 H Urine WBC 3 Ur Squamous Epith Cells 4 Urine Bacteria None Hyaline Casts < 1 Granular Casts < 1 Quality Measures Quality Measures VTE prophylaxis Advance care planning discussed with:: patient Assessment & Plan Assessment Current Active Medications: Generic Name Dose Route Start Last Admin Trade Name Freq PRN Reason Stop Dose Admin Enoxaparin Sodium 40 mg 04/30/25 09:00 Enoxaparin Sod Inj 40 Mg/0.4 Ml Syringe SC 05/14/25 08:59 QDAY ABRAHAM Hydromorphone HCl 1 mg 04/29/25 17:24 04/30/25 02:09 Hydromorphone Inj 2 Mg/Ml Vial IVP 05/04/25 17:23 1 mg Q4HR PRN Administration Pain 8-10 Lactated Ringer's 1,000 mls @ 75 mls/hr 04/29/25 17:30 04/29/25 22:11 Lactated Ringers IV 05/29/25 17:29 75 mls/hr .[id number] ABRAHAM Administration Acetaminophen 1,000 mg in 100 mls @ 250 mls/hr 04/29/25 17:29 04/30/25 06:00 Ofirmev Inj IV 04/30/25 12:23 250 mls/hr Q6HR ABRAHAM Administration Morphine Sulfate 4 mg 04/29/25 17:24 04/30/25 05:55 Morphine Sulf Inj 4 Mg/Ml Vial IVP 05/04/25 17:23 4 mg Q6HR PRN Administration pain 5-7 Ondansetron HCl 4 mg 04/29/25 17:19 Ondansetron Inj 2 Mg/Ml Inj 2 Ml IVP 05/29/25 17:18 Q6H PRN NAUSEA OR VOMITING Protocol Plan Mr. Danielle is a 70 year old gentleman with hx of BPH with urinary retention, HLD, with no hx of prior abdominal surgeries who was found to have dilated loops of small bowel on CTAP, admitted for SBO, NPO with NG tube in place clamped. denies passing gas, and abdomen is more distended than prior. SBO Ddx sbo vs mesinteric ischemia vs pancreatitis vs malignancy CTAP Tiny nonobstructing right renal calculi fluid distended small bowel loops, consider early small bowel obstruction GB US: No evidence for cholelithiasis, acute cholecystitis or biliary ductal obstruction. leukoyctosis likely reactive rather than infectious, he endorsed fevers and chills for the past 2 days and minimal appetite - leukocytosis resolving Lactic acid wnl, so suspicion of mesinteric ischemia is less likely. sbo pattern persists on upper gi series with gastrogaffin. may need surgical intervention if he does not resolve. Plan: NPO NG tube clamped Gastrogaffin small bowel series with sbo pattern, consider surgery consult if pt does not pass porfirio or have resolution of sbo with BM by 0500 11/5 GIOVANA - improving Baseline Cr 0.8, 1.3-->1.2 likely prerenal 2/2 diminished po intake Plan: LR 75 cc/hr BPH with urinary retention follows with [facility] home tamsulosin 0.4 qd , holding given npo pt reports that he is able to void in small increments Plan bladder scan q4 and straight cath as needed >300cc HLD hold home atorvastatin 40 qhs given npo Tobacco Use Disorder BL Pulmonary Nodules - stable CT chest: Bilateral pulmonary nodules dating to CT chest March 29, 2023- Stable bilateral subcentimeter pulmonary nodules Plan -continue outpatient f/u with low dose cts -discussed smoking cessation, pt not interested, will provide info on cessation if interested. Mild Normocytic Anemia hgb 13 Dispo: medsurg, npo with ng tube to clamped, ongoing small bowel gastrogaffin series with sbo pattern unchanged after 10 hours of initiation. Diet: npo Bowel Reg: gastrogaffin small bowel series VTE ppx: lovenox 40 sc GI ppx: not indicated Code status: FULL Plan discussed with my attending Dr. Rider and my senior resident Dr. Ralf Morris MD PGY1 Attending Provider Attestation/Addendum I, Cynthia Rider DO, attest that I was physically present for the espino portions of the service and evaluated the patient with the resident and I reviewed and discussed the case with the resident and agree with the resident's findings and plans of care as documented above Patient seen and evaluated this AM. Niece and sister at bedside. Patient continues to have abdominal pain. Abdomen appears slightly more distended. Gastrograffin remains positive for SBO. Will consult surgery. Continue with current management.
[2025-04-30] MEDS: Magnesium Sulfate 4 GM Ivpb 4 GM/50 ML BAG IV (09:30)
[2025-04-30] MEDS: ENOXAPARIN SOD INJ 40 MG/0.4 ML SYRINGE SC (09:30)
--- NOTE | 2025-04-30 10:00 | XR_ITS ---
Examination: Abdomen AP single view Technique: AP portable supine abdomen, single view Exam date and time: April 30, 2025, 10:20 a.m. INDICATIONS: 8-hour delay film post small bowel series today, abdominal pain and distention this week. FINDINGS: Significantly contrasted distended small bowel loops IMPRESSION: Small bowel obstruction pattern, recommend follow-up films 12 noon 2:00 p.m.
--- NOTE | 2025-04-30 12:00 | XR_ITS ---
Examination: Abdomen AP single view Technique: AP portable supine abdomen, single view Exam date and time: 04/30/2025, 11:00 p.m. INDICATION: Follow-up small bowel follow-through for small bowel obstruction COMPARISON: Same day abdominal radiograph performed at 10:20 a.m. FINDINGS: There is persistent contrast and gas-filled distention of stomach and numerous small bowel up throughout the abdomen bilaterally on the 10-hour follow-up image, extending into the pelvis, greater on the left. The pattern is not significantly changed since the radiograph of earlier the same day. Redemonstration of nasogastric tube in the periphery of the left upper quadrant within the proximal gastric antrum. IMPRESSION: Findings consistent with small bowel obstruction, with no significant change in contrast and gaseous distention of stomach and multiple small bowel loops at 10 hours from the start of the examination.
[2025-04-30] MEDS: RINGERS LACTATED 1000 ML 1,000 ML 75 ML IV (12:56)
--- NOTE | 2025-04-30 14:51 | PC.SS ---
Patient is alert/oriented. Patient was able to verify demographics. Patient resides alone. Independent with ADL's. No DME. Family transports him to appointments. PCP: Patient follows at [facility]. Last appt. was last week of March. Pharmacy: [facility]. Discharge plan is to return home. No d/c needs at this time. Alt medical decision maker: Daughter, Jahaira Galdamez,
--- NOTE | 2025-04-30 15:28 | PD.SURCONS ---
HPI Consult details Consult date: 04/30/25 Reason for consultation narrative: Small bowel obstruction History of present illness: 70-year-old male with history of BPH and hyperlipidemia presented to the emergency department with acute onset of abdominal pain. His pain started the day prior to admission. He had generalized abdominal pain that has been getting progressively worse. He has had nausea but denies vomiting, fever or chills. He denies history of significant weight loss, changes in bowel habits or blood per rectum. He states that he has had colonoscopy about 3 years ago in [place] that revealed some polyps. He denies having similar symptoms in the past with no recent history of trauma. CT scan revealed dilated loops of small bowel concerning for small bowel obstruction. NG tube was placed and patient was admitted for further management. Review of Systems Constitutional Constitutional: Denies chills, Denies fever(s) and Denies weight loss Cardiovascular Cardiovascular: Denies chest pain Respiratory Respiratory: Denies cough Gastrointestinal Gastrointestinal: Reports abdominal pain, Reports nausea and Denies vomiting Genitourinary Genitourinary: Denies difficulty urinating Hematologic/Lymphatic Hematologic/Lymphatic: Denies easy bleeding and Denies easy bruising Past Medical History Surgical History OTHER SURGICAL HX: No surgeries in the past Social History SMOKING STATUS: Current every day smoker SUBSTANCE USE: does not use ALCOHOL: Current Meds Home Medications and Allergies Home Medications ?Medication ?Instructions ?Recorded ?Confirmed ?Type atorvastatin 40 mg tablet 40 mg PO HS 10/15/20 04/29/25 History gabapentin 600 mg tablet 600 mg PO Q12H 04/29/25 04/29/25 History Allergies Allergy/AdvReac Type Severity Reaction Status Date / Time ibuprofen Allergy Mild itching Verified 04/29/25 13:26 Exam Vital Signs Temp Pulse Resp BP Pulse Ox O2 Del Method 97.9 F 62 16 128/79 96 Room Air 04/30/25 08:00 04/30/25 08:00 04/30/25 08:00 04/30/25 08:00 04/30/25 08:00 04/30/25 08:00 Constitutional Constitutional: no acute distress Routine Abdominal Exam Comments: Abdomen is soft and mildly distended. He has hypoactive bowel sounds Results Results: Laboratory Laboratory results: results reviewed Results: Imaging CT scan - abdomen: report reviewed and image reviewed CT scan - pelvis: report reviewed and image reviewed Assessment & Plan Plan Keep NPO with IVF and NGT. Will repeat abdominal xray in the morning.
[2025-04-30 16:00] VITALS: BP 135/76; PULSE 70; RESP 17; TEMP 36.7; O2SAT 94
--- NOTE | 2025-04-30 18:00 | XR_ITS ---
Examination: Abdomen AP single view Technique: AP portable supine abdomen, single view Exam date and time: April 30, 2025, 1726 hours INDICATIONS: Abdominal distention this week, 16-hour delayed film post small bowel series FINDINGS: Contrast in distended small bowel loops IMPRESSION: High-grade mechanical small bowel obstruction, recommend follow-up 10:10 p.m.
[2025-04-30] MEDS: METOCLOPRAMIDE INJ 5 MG/ML VIAL 2 ML 10 MG IVP ×2 (18:30→23:48)
[2025-04-30 19:33] VITALS: PULSE 81; RESP 16; O2SAT 95
[2025-04-30 20:00] VITALS: BP 156/84; PULSE 70; RESP 18; TEMP 36.6; O2SAT 92
--- NOTE | 2025-04-30 20:20 | PC.NURSE ---
Patient assisted to bathroom, voided to 96cc dark shaheen urine.
--- NOTE | 2025-04-30 22:00 | XR_ITS ---
Examination: Abdomen AP single view Technique: AP portable supine abdomen, single view Exam date and time: April 30, 2025, 10 0 9:00 p.m. INDICATIONS: 20-hour delay film for small bowel series today, abdominal pain and distention this week. FINDINGS: Contrast in markedly distended small bowel loops IMPRESSION: High-grade mechanical small bowel obstruction
[2025-05-01] VITALS (18 sets, daily range): BP systolic 119–188; BP diastolic 59–108; PULSE 65–83; RESP 14–74; TEMP 36.2–36.9; O2SAT 92–97
--- NOTE | 2025-05-01 00:20 | PC.NURSE ---
Bladder scan done - 296, appear to have some distention, assisted to bathroom, voided 40cc. In and out cath. offered, patient refused.
[2025-05-01] MEDS: RINGERS LACTATED 1000 ML 1,000 ML 75 ML IV ×3 (02:01→15:30)
[2025-05-01] MEDS: HYDROmorphone INJ 2 MG/ML VIAL 1 MG IVP (03:45)
[2025-05-01] MEDS: METOCLOPRAMIDE INJ 5 MG/ML VIAL 2 ML 10 MG IVP ×2 (05:15→11:59)
[2025-05-01 05:50] LABS: Basophils # (Auto) 0.0 Thou/mm3 (0.0-0.2); Basophils % (Auto) 0 % (0-2.5); Eosinophils # (Auto) 0.0 Thou/mm3 (0.0-0.5); Eosinophils % (Auto) 0 % (0-10); Hematocrit 35.4 % (41.0-53.0); Hemoglobin 12.2 g/dL (13.5-16.0); Immature Granulocytes Auto 0.03 Thou/mm3 (0.00-0.00); Lymphocytes # (Auto) 0.5 Thou/mm3 (1.0-4.8); Lymphocytes % (Auto) 5 % (10-50); Mean Corpuscular HGB Conc 34.5 g/dl (31.0-37.0); Mean Corpuscular Hemoglobin 32.5 pg (25.0-35.0); Mean Corpuscular Volume 94 fL (80-100); Monocytes # (Auto) 0.4 Thou/mm3 (0.0-0.8); Monocytes % (Auto) 5 % (0-12); Neutrophils # (Auto) 8.8 Thou/mm3 (1.8-7.7); Neutrophils % (Auto) 90 % (37-80); Nucleated Red Blood Cell # 0.00 Thou/mm3 (0.00-0.00); Nucleated Red Blood Cell % 0 /100 WBC (0); Platelet Count 224 Thou/mm3 (140-440); RDW Standard Deviation 48.7 fL (35.1-43.9); Red Blood Count 3.75 Miln/mm3 (4.50-5.90); White Blood Count 9.8 Thou/mm3 (3.8-10.6)
[2025-05-01 06:29] LABS: Alanine Aminotransferase 8 U/L (10-49); Albumin, Serum 4.2 gm/dL (3.4-4.8); Albumin/Globulin Ratio 1.7 (1.2-2.2); Alkaline Phosphatase 63 U/L (46-116); Anion Gap 10 (7-16); Aspartate Amino Transferase 17 U/L (0-34); BUN/Creatinine Ratio 22 Ratio (12-20); Bilirubin,Total 0.6 mg/dL (0.3-1.2); Blood Urea Nitrogen 26 mg/dL (9-23); Calcium 9.5 mg/dL (8.3-10.6); Calcium (Corrected) 9.5 mg/dL (8.5-10.1); Carbon Dioxide 27.0 mMol/L (20.0-31.0); Chloride 103 mMol/L (98-107); Creatinine (Component) 1.2 mg/dL (0.6-1.3); Estimated Creatinine Clearance 48.5 mL/min (>60); Globulin 2.5 gm/dL (2.3-3.5); Glucose 137 mg/dL (74-106); Magnesium 2.5 mg/dL (1.6-2.6); Osmolality,Calculated 286 (275-295); Phosphorous 5.0 mg/dL (2.4-5.1); Potassium 3.9 mMol/L (3.4-5.1); Sodium 140 mMol/L (136-145); Total Protein 6.7 gm/dL (5.7-8.2); eGFR > 60 See Note
--- NOTE | 2025-05-01 07:57 | XR_ITS ---
Examination: Abdomen AP single view Technique: AP portable supine abdomen, single view Exam date and time: 05/01/2025, 8:43 a.m. INDICATION: Follow-up small bowel follow-through study, small bowel obstruction COMPARISON: Multiple abdominal radiographs from 04/30/2025, the latest being at 10:03 p.m. FINDINGS: There is redemonstration of numerous very distended small bowel containing contrast throughout the bilateral upper and lower quadrants the most mild progressive contrast opacification of small bowel in the inferior portion of the right hemipelvis since prior exam. Possible contrast in the ascending colon but assessment is obscured by overlying dilated small bowel. Persistent contrast in the gastric fundus, mildly improved in the interim. NG tube remains in the periphery of the proximal gastric antrum. Gas is visualized within the hepatic flexure of the colon. No apparent free air. IMPRESSION: Redemonstration of very high-grade small bowel obstruction, with possible contrast in ascending colon but obscured by overlying contrast filled distended small bowel. A follow-up CT of the abdomen/pelvis could be considered for further evaluation.
--- NOTE | 2025-05-01 08:03 | ESPR_ITS ---
<Statement entered by Madhuri Grider MD - 05/02/25 14:57> Patient is seen at bedside. Patient continues to have significant abdominal pain with distention. Denies any nausea vomiting however has not been passing any gas or had any bowel movements. NG tube has minimal output and repeat imaging, from the GI series showed complete obstruction. General surgery is consulted and plan is to undergo ex lap today. Patient's blood pressure is elevated therefore labetalol pushes as needed with parameters are ordered. Patient was seen and examined by me personally. I have directly supervised and reviewed documentation by the team resident and agree with its findings. ------- Plan of care was discussed with the attending, Dr. Tereso Grider, PGY-2 Documentation for date of: 05/01/25 Subjective Subjective Interval history: Mr moeller presented with severe abdominal pain, found to have sbo. ng tube was placed. and pt completed gastrogaffin small bowel series, however obstruction did not resolve. noted to be high grade complete obstruction. surgery was consulted yesterday. plan for ex lap today with Dr. dial. CEA wnl. Exam Vital Signs Temp Pulse Resp BP Pulse Ox O2 Del Method 98 F 76 16 166/86 H 93 L Room Air 05/01/25 04:00 05/01/25 04:00 05/01/25 04:00 05/01/25 04:00 05/01/25 04:00 05/01/25 04:00 Narrative Exam GENERAL: no acute distress, AAO x3, laying in bed, just recieved IV pain meds, so less abdominal pain HEENT: Head AT/ NC. Mucous membranes dry. PERRL. NECK: Supple, no lymphadenopathy, no carotid bruits. CARDIOVASCULAR: RRR. Normal S1/S2, No m/r/g. No pitting edema of bilateral LEs. RESPIRATORY: some expiratory wheezing, GASTROINTESTINAL: Abdomen soft, tender to light palpation with voluntary guarding, no rebound tenderness. Bowel sounds minimal , notably more distended. MUSCULOSKELETAL:? No cyanosis or edema, no visible joint swelling. arthritic hand joints NEUROLOGICAL: CN II-XII grossly intact. No focal deficits. Sensation intact, symmetric. tremulous PSYCHIATRIC: Awake and alert, not agitated, normal mood and affect. SKIN: No obvious rashes, no jaundice, normal turgor. Objective Labs 05/02/25 05:34 05/02/25 05:34 Labs: Laboratory Results - last 24 hr 05/01/25 05:02 WBC 9.8 RBC 3.75 L Hgb 12.2 L Hct 35.4 L MCV 94 MCH 32.5 MCHC 34.5 RDW Std Deviation 48.7 H Plt Count 224 D Neut % (Auto) 90 H Lymph % (Auto) 5 L [place] % (Auto) 5 Eos % (Auto) 0 Baso % (Auto) 0 Neut # (Auto) 8.8 H Lymph # (Auto) 0.5 L [place] # (Auto) 0.4 Eos # (Auto) 0.0 Baso # (Auto) 0.0 Immature Gran # (Auto) 0.03 H Absolute Nucleated RBC 0.00 Immature Gran % 0 Nucleated RBC % 0 Sodium 140 Potassium 3.9 Chloride 103 Carbon Dioxide 27.0 Anion Gap 10 BUN 26 H Creatinine 1.2 Estim Creat Clear Calc 48.5 L eGFR > 60 BUN/Creatinine Ratio 22 H Glucose 137 H Calculated Osmolality 286 Calcium 9.5 Corrected Calcium 9.5 Phosphorus 5.0 Magnesium 2.5 Total Bilirubin 0.6 AST 17 ALT 8 L Alkaline Phosphatase 63 Total Protein 6.7 Albumin 4.2 Globulin 2.5 Albumin/Globulin Ratio 1.7 Quality Measures Quality Measures VTE prophylaxis Advance care planning discussed with:: patient Assessment & Plan Assessment Current Active Medications: Generic Name Dose Route Start Last Admin Trade Name Freq PRN Reason Stop Dose Admin Enoxaparin Sodium 40 mg 04/30/25 09:00 04/30/25 09:30 Enoxaparin Sod Inj 40 Mg/0.4 Ml Syringe SC 05/14/25 08:59 40 mg QDAY ABRAHAM Administration Hydromorphone HCl 1 mg 04/29/25 17:24 05/01/25 03:45 Hydromorphone Inj 2 Mg/Ml Vial IVP 05/04/25 17:23 1 mg Q4HR PRN Administration Pain 8-10 Lactated Ringer's 1,000 mls @ 75 mls/hr 04/29/25 17:30 05/01/25 02:01 Lactated Ringers IV 05/29/25 17:29 75 mls/hr .[id number] ABRAHAM Administration Acetaminophen 1,000 mg in 100 mls @ 250 mls/hr 05/01/25 18:45 Ofirmev Inj IV 05/01/25 19:08 Q6HR ABRAHAM Metoclopramide HCl 10 mg 04/30/25 18:00 05/01/25 05:15 Metoclopramide Inj 5 Mg/Ml Vial 2 Ml IVP 05/30/25 17:59 10 mg Q6HR ABRAHAM Administration Protocol Morphine Sulfate 4 mg 04/29/25 17:24 04/30/25 16:19 Morphine Sulf Inj 4 Mg/Ml Vial IVP 05/04/25 17:23 4 mg Q6HR PRN Administration pain 5-7 Ondansetron HCl 4 mg 04/29/25 17:19 Ondansetron Inj 2 Mg/Ml Inj 2 Ml IVP 05/29/25 17:18 Q6H PRN NAUSEA OR VOMITING Protocol Plan Mr. Moeller is a 70 year old gentleman with hx of BPH with urinary retention, HLD, with no hx of prior abdominal surgeries who was found to have dilated loops of small bowel on CTAP, admitted for SBO, NPO with NG tube in place clamped. no resolution of obstruction, noted to be high grade obstruction, surgery consulted, ex lap today SBO Ddx sbo vs mesinteric ischemia vs pancreatitis vs malignancy CTAP Tiny nonobstructing right renal calculi fluid distended small bowel loops, consider early small bowel obstruction GB US: No evidence for cholelithiasis, acute cholecystitis or biliary ductal obstruction. leukoyctosis likely reactive rather than infectious, he endorsed fevers and chills for the past 2 days and minimal appetite - leukocytosis resolving Lactic acid wnl, so suspicion of mesinteric ischemia is less likely. sbo pattern persists on upper gi series with gastrogaffin. may need surgical intervention if he does not resolve. Plan: NPO NG tube to LIS Gastrogaffin small bowel series with high grade complete obstruction surgery consulted, appreciate recs, likely exlap GIOVANA - improving Baseline Cr 0.8, 1.3-->1.2 likely prerenal 2/2 diminished po intake Plan: LR 75 cc/hr BPH with urinary retention follows with [facility] home tamsulosin 0.4 qd , holding given npo pt reports that he is able to void in small increments Plan bladder scan q4 and straight cath as needed >300cc HLD hold home atorvastatin 40 qhs given npo Tobacco Use Disorder BL Pulmonary Nodules - stable CT chest: Bilateral pulmonary nodules dating to CT chest March 29, 2023- Stable bilateral subcentimeter pulmonary nodules Plan -continue outpatient f/u with low dose cts -discussed smoking cessation, pt not interested, will provide info on cessation if interested. Mild Normocytic Anemia hgb 13 Dispo: medsurg, npo with ng tube to LIS. Diet: npo Bowel Reg: n/a high grade obstruction VTE ppx: lovenox 40 sc GI ppx: not indicated Code status: FULL Plan discussed with my attending Dr. Rider and my senior resident Dr. Ralf Morris MD PGY1 Attending Provider Attestation/Addendum I, Cynthia Rider, DO, attest that I was physically present for the espino portions of the service and evaluated the patient with the resident and I reviewed and discussed the case with the resident and agree with the resident's findings and plans of care as documented above Patient seen and evaluated this afternoon as patient was brought to surgery this AM. Daughters are at bedside. Case discussed with surgeon, suspect that patient had perforated appendicitis to begin with, leading to scarring and adherence of small bowel to affected area resulting to SBO. Gallbladder was also noted to be gangrenous. Perioperative findings were discussed with daughters at bedside. Patient currently denies any pain. He is on FIRST MATE pump for pain control. NG tube remains in place on LIS. Will continue with current management. Diet to be advanced by surgeon.
[2025-05-01] MEDS: ENOXAPARIN SOD INJ 40 MG/0.4 ML SYRINGE SC (08:07)
[2025-05-01] MEDS: MORPHINE SULF INJ 4 MG/ML VIAL IVP (08:13)
[2025-05-01 08:30] LABS: Carcinoembryonic Antigen 4.4 ng/mL (0.0-5.0)
--- NOTE | 2025-05-01 11:10 | PC.NURSE ---
MD notified pts BP is still elevated and no medications for blood pressure control are ordered, MD will place orders.
--- NOTE | 2025-05-01 11:58 | PD.SURPROG ---
Documentation for date of: 05/01/25 Subjective Subjective Narrative: Patient is seen and examined. His pain is getting worse. He has not had flatus or bowel movement. Abdominal x-ray revealed persistent small bowel obstruction Exam Vital Signs Temp Pulse Resp BP Pulse Ox O2 Del Method 97.8 F 76 16 181/96 H 96 Room Air 05/01/25 08:00 05/01/25 11:13 05/01/25 11:13 05/01/25 08:00 05/01/25 11:13 05/01/25 08:00 Constitutional Constitutional: no acute distress Routine Abdominal Exam Comments: Abdomen is soft but more distended. He has tenderness to palpation throughout the abdomen with guarding Assessment & Plan Assessment Additional comments: Persistent small bowel obstruction failed conservative management Plan Patient will be taken to the operating room for exploratory laparotomy, possible bowel resection, possible ostomy. Risks include but not limited to infection, bleeding, injury to bowel, surround neurovascular structures, possible leak from anastomosis site, abdominal sepsis and or abdominal abscess, incisional hernia, pneumonia, blood clot, heart attack, stroke and discussed with the patient and his family. Benefits and alternatives explained to them, all their questions answered, they agreed and consented to proceed with the operation.
[2025-05-01] MEDS: LABETALOL INJ 5 MG/ML VIAL 20 ML 10 MG IVP (11:59)
--- NOTE | 2025-05-01 14:36 | PD.SUROPNT ---
Date of Procedure 05/01/25 Pre Op Diagnosis Small bowel obstruction Post Op Diagnosis Small bowel perforation with segmental infarction Perforated appendicitis with purulent peritonitis Gangrenous cholecystitis Procedure Exploratory laparotomy, partial small bowel resection with anastomosis Cholecystectomy Appendectomy Findings Very dilated loops of small bowel. Proximal ileum had segmental area of infarction with perforation. The appendix was gangrenous and perforated with purulent fluid throughout the abdomen. Gallbladder was significantly distended and gangrenous in appearance Anesthesia GETA Pathology / specimen Other (Partial small bowel, gallbladder, appendix) Estimated Blood Loss 50 Condition Stable Disposition PACU Surgeon Elliot Weeks MD Surgical Staff Operation Date: 05/01/25 14:45 Case Staff Anesthesiologist: Martin Veronica RNbullard machine operator: Louise Jones
--- NOTE | 2025-05-01 14:40 | SUR.PHASEI ---
1440 Patient arrived to recovery resting comfortably in [facility], drowsy and able to responding to verbal commands, on oxygen 4L via nasal cannula, breathing unlabored, vital signs stable, dressing intact to abdomen; pato, gauze, medipore tape, abdominal binder, no bleeding noted, NG in place 65 to left nares-to intermittent low suction; per MD order, urinary catheter 16f in place with leg secure; draining to gravity, report receive from Dr. Veronica and Palmira CHEN
[2025-05-01] MEDS: HYDROmorphone 1 MG/ML PCA SYRINGE 30ML PCA (15:49)
--- NOTE | 2025-05-01 16:10 | SUR.PHASEI ---
1617 patient transported via bed to room 373 without incident, Deloris RN promptly in patients room, patients family awaiting at bedside, patient resting comfortably in bed with call light in reach and Deloris RN at bedside when this flex o writer operator left patients room
[2025-05-01] MEDS: CEFOXITIN 2 GM in SODIUM CHLORIDE 0.9% (Popper) 50 ML IV (17:18)
[2025-05-01] MEDS: ACETAMINOPHEN IVPB 1,000 MG/100 ML VIAL 250 MG IV (18:27)
[2025-05-02] VITALS (10 sets, daily range): BP systolic 151–168; BP diastolic 81–96; PULSE 73–90; RESP 12–20; TEMP 36.1–36.6; O2SAT 96–98; BMI 20.1
[2025-05-02] MEDS: CEFOXITIN 2 GM in SODIUM CHLORIDE 0.9% (Popper) 50 ML IV ×5 (01:12→23:08)
[2025-05-02] MEDS: RINGERS LACTATED 1000 ML 1,000 ML 75 ML IV ×2 (05:41→20:52)
[2025-05-02 06:31] LABS: Basophils # (Auto) 0.1 Thou/mm3 (0.0-0.2); Basophils % (Auto) 1 % (0-2.5); Eosinophils # (Auto) 0.0 Thou/mm3 (0.0-0.5); Eosinophils % (Auto) 0 % (0-10); Hematocrit 34.1 % (41.0-53.0); Hemoglobin 11.7 g/dL (13.5-16.0); Immature Granulocytes Auto 0.01 Thou/mm3 (0.00-0.00); Lymphocytes # (Auto) 0.2 Thou/mm3 (1.0-4.8); Lymphocytes % (Auto) 3 % (10-50); Mean Corpuscular HGB Conc 34.3 g/dl (31.0-37.0); Mean Corpuscular Hemoglobin 32.1 pg (25.0-35.0); Mean Corpuscular Volume 94 fL (80-100); Monocytes # (Auto) 0.3 Thou/mm3 (0.0-0.8); Monocytes % (Auto) 4 % (0-12); Neutrophils # (Auto) 6.6 Thou/mm3 (1.8-7.7); Neutrophils % (Auto) 91 % (37-80); Nucleated Red Blood Cell # 0.00 Thou/mm3 (0.00-0.00); Nucleated Red Blood Cell % 0 /100 WBC (0); Platelet Count 194 Thou/mm3 (140-440); RDW Standard Deviation 48.5 fL (35.1-43.9); Red Blood Count 3.64 Miln/mm3 (4.50-5.90); White Blood Count 7.2 Thou/mm3 (3.8-10.6)
[2025-05-02 07:03] LABS: Alanine Aminotransferase 89 U/L (10-49); Albumin, Serum 3.4 gm/dL (3.4-4.8); Albumin/Globulin Ratio 1.4 (1.2-2.2); Alkaline Phosphatase 49 U/L (46-116); Anion Gap 8 (7-16); Aspartate Amino Transferase 112 U/L (0-34); BUN/Creatinine Ratio 20 Ratio (12-20); Bilirubin,Total 1.6 mg/dL (0.3-1.2); Blood Urea Nitrogen 24 mg/dL (9-23); Calcium 8.9 mg/dL (8.3-10.6); Calcium (Corrected) 9.4 mg/dL (8.5-10.1); Carbon Dioxide 28.0 mMol/L (20.0-31.0); Chloride 109 mMol/L (98-107); Creatinine (Component) 1.2 mg/dL (0.6-1.3); Estimated Creatinine Clearance 48.5 mL/min (>60); Globulin 2.5 gm/dL (2.3-3.5); Glucose 165 mg/dL (74-106); Magnesium 2.0 mg/dL (1.6-2.6); Osmolality,Calculated 296 (275-295); Phosphorous 4.7 mg/dL (2.4-5.1); Potassium 4.2 mMol/L (3.4-5.1); Sodium 145 mMol/L (136-145); Total Protein 5.9 gm/dL (5.7-8.2); eGFR > 60 See Note
[2025-05-02] MEDS: ENOXAPARIN SOD INJ 40 MG/0.4 ML SYRINGE SC (08:35)
--- NOTE | 2025-05-02 09:58 | ESPR_ITS ---
Documentation for date of: 05/02/25 Subjective Subjective Narrative: Patient is seen and examined. His pain is controlled with BUSINESS INTELLIGENCE MANAGER. He denies nausea or vomiting Exam Vital Signs Temp Pulse Resp BP Pulse Ox O2 Del Method O2 Flow Rate 97.1 F 87 12 152/87 H 97 Nasal Cannula 3 05/02/25 04:00 05/02/25 04:00 05/02/25 04:00 05/02/25 04:00 05/02/25 04:00 05/02/25 04:00 05/02/25 03:59 Constitutional Constitutional: no acute distress Routine Abdominal Exam Comments: Abdomen is soft and mildly distended. Bowel sounds absent today. Incision with dressings clean, dry and intact Assessment & Plan Assessment Additional comments: Postop day #1 status post partial small bowel resection, cholecystectomy and appendectomy Plan Continue IV antibiotics. Will keep n.p.o. with IV fluids and NG tube. DC Hollings[place] catheter. Use incentive spirometer and increase ambulation PROCEDURES: Procedures Exploratory laparotomy, partial small bowel resection with anastomosis Cholecystectomy Appendectomy
--- NOTE | 2025-05-02 10:48 | ESPR_ITS ---
<Statement entered by Madhuri Grider MD - 05/02/25 15:52> Patient is seen at bedside. Patient is status post ex lap with partial small bowel resection with anastomosis, cholecystectomy, appendectomy. Findings included dilated loops of small bowel with proximal ileum had segmental area of infarction with perforation and gangrenous and perforated appendix and gangrenous distended gallbladder. patient continues to have significant abdominal pain and was not using his LEASING PROPERTY MANAGER pump because he was afraid to overdose. Patient is educated on LEASING PROPERTY MANAGER pump will manage his pain without overdosing him. Patient has not had a bowel movement and is not passing gas. Will continue IV antibiotics , pain management and will continue bowel rest. Patient was seen and examined by me personally. I have directly supervised and reviewed documentation by the team resident and agree with its findings. Plan of care was discussed with the attending, Dr. Tereso Grider, PGY-2 Documentation for date of: 05/02/25 Subjective Subjective Interval history: Mr Danielle is a 70 year old gentleman who is s/p ex lap with adhesion take down and appendectomy and cholecystectomy. pt has LEASING PROPERTY MANAGER and was instructed on how to use to help to manage pain Micky managing henning d/c T matt elevated at 1.6 LFT elevated patient denies that he is passing gas. 3 days without nutrition. pt has BMI 20. Exam Vital Signs Temp Pulse Resp BP Pulse Ox O2 Del Method O2 Flow Rate 97.3 F 77 14 152/81 H 96 Nasal Cannula 4 05/02/25 08:00 05/02/25 08:00 05/02/25 08:00 05/02/25 08:00 05/02/25 08:00 05/02/25 08:00 05/02/25 08:00 Narrative Exam GENERAL: no acute distress, AAO x3, laying in bed, HEENT: Head AT/ NC. Mucous membranes dry. PERRL. NECK: Supple, no lymphadenopathy, no carotid bruits. CARDIOVASCULAR: RRR. Normal S1/S2, No m/r/g. No pitting edema of bilateral LEs. RESPIRATORY: some expiratory wheezing, GASTROINTESTINAL: Abdomen soft, tender to palpatiion. with midline incision with gauze and tape, binder in place, incision not visualized. :henning cath in place MUSCULOSKELETAL:? No cyanosis or edema, no visible joint swelling. arthritic hand joints NEUROLOGICAL: CN II-XII grossly intact. No focal deficits. Sensation intact, symmetric. tremulous PSYCHIATRIC: Awake and alert, not agitated, normal mood and affect. SKIN: No obvious rashes, no jaundice, normal turgor. Objective Labs 05/02/25 05:34 05/02/25 05:34 Labs: Laboratory Results - last 24 hr 05/02/25 05:34 WBC 7.2 RBC 3.64 L Hgb 11.7 L Hct 34.1 L MCV 94 MCH 32.1 MCHC 34.3 RDW Std Deviation 48.5 H Plt Count 194 D Neut % (Auto) 91 H Lymph % (Auto) 3 L [place] % (Auto) 4 Eos % (Auto) 0 Baso % (Auto) 1 Neut # (Auto) 6.6 Lymph # (Auto) 0.2 L [place] # (Auto) 0.3 Eos # (Auto) 0.0 Baso # (Auto) 0.1 Immature Gran # (Auto) 0.01 H Absolute Nucleated RBC 0.00 Immature Gran % 0 Nucleated RBC % 0 Sodium 145 Potassium 4.2 Chloride 109 H Carbon Dioxide 28.0 Anion Gap 8 BUN 24 H Creatinine 1.2 Estim Creat Clear Calc 48.5 L eGFR > 60 BUN/Creatinine Ratio 20 Glucose 165 H Calculated Osmolality 296 H Calcium 8.9 Corrected Calcium 9.4 Phosphorus 4.7 Magnesium 2.0 Total Bilirubin 1.6 H D AST 112 H ALT 89 H Alkaline Phosphatase 49 D Total Protein 5.9 Albumin 3.4 D Globulin 2.5 Albumin/Globulin Ratio 1.4 Quality Measures Quality Measures VTE prophylaxis Advance care planning discussed with:: patient Assessment & Plan Assessment Current Active Medications: Generic Name Dose Route Start Last Admin Trade Name Ericq PRN Reason Stop Dose Admin Enoxaparin Sodium 40 mg 04/30/25 09:00 05/02/25 08:35 Enoxaparin Sod Inj 40 Mg/0.4 Ml Syringe SC 05/14/25 08:59 40 mg QDAY ABRAHAM Administration Hydromorphone HCl 0 mg 05/01/25 15:22 05/01/25 15:49 Hydromorphone 1 Mg/Ml Asset Protection Specialist Syringe 30ml LEASING PROPERTY MANAGER 05/06/25 15:21 30 mg UD ABRAHAM Administration Protocol Lactated Ringer's 1,000 mls @ 75 mls/hr 04/29/25 17:30 05/02/25 05:41 Lactated Ringers IV 05/29/25 17:29 75 mls/hr .[id number] ABRAHAM Administration Cefoxitin Sodium 2 gm/ Sodium 50 mls @ 100 mls/hr 05/01/25 18:00 05/02/25 05:41 Chloride IV 05/08/25 17:59 100 mls/hr Q6HR ABRAHAM Administration Ondansetron HCl 4 mg 05/01/25 16:32 Ondansetron Inj 2 Mg/Ml Inj 2 Ml IVP 05/31/25 16:31 Q6HR PRN NAUSEA OR VOMITING Protocol Plan Mr. Danielle is a 70 year old gentleman with hx of BPH with urinary retention, HLD, with no hx of prior abdominal surgeries who was found to have dilated loops of small bowel on CTAP, admitted for SBO, NPO with NG tube in place to LIS. s/p ex lap and appendectomy and cholecystectomy. not yet passing gas, nor has he had bm. SBO s/p ex lap appendectomy cholecystectomy hyperbillirubenima Transaminitis Ddx sbo vs mesinteric ischemia vs pancreatitis vs malignancy CTAP Tiny nonobstructing right renal calculi fluid distended small bowel loops, consider early small bowel obstruction GB US: No evidence for cholelithiasis, acute cholecystitis or biliary ductal obstruction. leukoyctosis likely reactive rather than infectious, he endorsed fevers and chills for the past 2 days and minimal appetite - leukocytosis resolving Lactic acid wnl, so suspicion of mesinteric ischemia is less likely. Failed upper gi series with gastrogaffin. not yet passing gas. Plan: NPO , day 3 of no nutrition NG tube to LIS Gastrogaffin small bowel series with high grade complete obstruction surgery consulted, appreciate recs, post op GIOVANA - improving Baseline Cr 0.8, 1.3-->1.2 likely prerenal 2/2 diminished po intake Plan: LR 75 cc/hr BPH with urinary retention follows with [facility]an home tamsulosin 0.4 qd , holding given npo pt reports that he is able to void in small increments Plan bladder scan q4 and straight cath as needed >300cc henning d/c HLD hold home atorvastatin 40 qhs given npo Tobacco Use Disorder BL Pulmonary Nodules - stable CT chest: Bilateral pulmonary nodules dating to CT chest March 29, 2023- Stable bilateral subcentimeter pulmonary nodules Plan -continue outpatient f/u with low dose cts -discussed smoking cessation, pt not interested, will provide info on cessation if interested. Mild Normocytic Anemia hgb 13 Elevated BP likely 2/2 pain, on mortar mixer has recieved 1x labetalol 10 IVP Dispo: medsurg, npo with ng tube to LIS. not yet passing gas, no BM Diet: npo Bowel Reg: n/a high grade obstruction VTE ppx: SCD , lovenox 40 sc qd GI ppx: not indicated Code status: FULL Plan discussed with my attending Dr. Rider and my senior resident Dr. Ralf Morris MD PGY1 Attending Provider Attestation/Addendum I, Cynthia Rider, , attest that I was physically present for the espino portions of the service and evaluated the patient with the resident and I reviewed and discussed the case with the resident and agree with the resident's findings and plans of care as documented above Patient seen and eval this a.m. He is currently on a LEASING PROPERTY MANAGER pump. Patient reports some pain, but educated on use of LEASING PROPERTY MANAGER pump. Patient is at bedside. NG tube remains in place. Patient has been seen by surgeon this morning. Will keep patient n.p.o. as recommended. Patient reports passing gas. He remains on IV antibiotics. Will continue with postop care. Patient has been afebrile. Diet to be advanced by surgeon
[2025-05-03] VITALS (16 sets, daily range): BP systolic 153–175; BP diastolic 75–92; PULSE 55–81; RESP 11–20; TEMP 36.2–37.1; O2SAT 95–99
[2025-05-03] MEDS: CEFOXITIN 2 GM in SODIUM CHLORIDE 0.9% (Popper) 50 ML IV ×4 (05:02→23:29)
[2025-05-03 06:03] LABS: Basophils # (Auto) 0.1 Thou/mm3 (0.0-0.2); Basophils % (Auto) 1 % (0-2.5); Eosinophils # (Auto) 0.0 Thou/mm3 (0.0-0.5); Eosinophils % (Auto) 0 % (0-10); Hematocrit 31.1 % (41.0-53.0); Hemoglobin 10.5 g/dL (13.5-16.0); Immature Granulocytes Auto 0.18 Thou/mm3 (0.00-0.00); Lymphocytes # (Auto) 0.7 Thou/mm3 (1.0-4.8); Lymphocytes % (Auto) 8 % (10-50); Mean Corpuscular HGB Conc 33.8 g/dl (31.0-37.0); Mean Corpuscular Hemoglobin 32.5 pg (25.0-35.0); Mean Corpuscular Volume 96 fL (80-100); Monocytes # (Auto) 0.4 Thou/mm3 (0.0-0.8); Monocytes % (Auto) 5 % (0-12); Neutrophils # (Auto) 8.0 Thou/mm3 (1.8-7.7); Neutrophils % (Auto) 85 % (37-80); Nucleated Red Blood Cell # 0.00 Thou/mm3 (0.00-0.00); Nucleated Red Blood Cell % 0 /100 WBC (0); Platelet Count 180 Thou/mm3 (140-440); RDW Standard Deviation 51.9 fL (35.1-43.9); Red Blood Count 3.23 Miln/mm3 (4.50-5.90); White Blood Count 9.4 Thou/mm3 (3.8-10.6)
[2025-05-03 06:25] LABS: Alanine Aminotransferase 112 U/L (10-49); Albumin, Serum 3.5 gm/dL (3.4-4.8); Albumin/Globulin Ratio 1.4 (1.2-2.2); Alkaline Phosphatase 64 U/L (46-116); Anion Gap 8 (7-16); Aspartate Amino Transferase 78 U/L (0-34); BUN/Creatinine Ratio 20 Ratio (12-20); Bilirubin,Total 1.3 mg/dL (0.3-1.2); Blood Urea Nitrogen 22 mg/dL (9-23); Calcium 9.2 mg/dL (8.3-10.6); Calcium (Corrected) 9.6 mg/dL (8.5-10.1); Carbon Dioxide 30.0 mMol/L (20.0-31.0); Chloride 109 mMol/L (98-107); Creatinine (Component) 1.1 mg/dL (0.6-1.3); Estimated Creatinine Clearance 53.0 mL/min (>60); Globulin 2.5 gm/dL (2.3-3.5); Glucose 112 mg/dL (74-106); Magnesium 2.2 mg/dL (1.6-2.6); Osmolality,Calculated 296 (275-295); Phosphorous 2.9 mg/dL (2.4-5.1); Potassium 4.3 mMol/L (3.4-5.1); Sodium 147 mMol/L (136-145); Total Protein 6.0 gm/dL (5.7-8.2); eGFR > 60 See Note
[2025-05-03] MEDS: HYDROmorphone 1 MG/ML PCA SYRINGE 30ML PCA (07:29)
--- NOTE | 2025-05-03 08:00 | ESPR_ITS ---
<Statement entered by Madhuri Grider MD - 05/03/25 16:27> Patient is seen at bedside. 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 NG tube is in place currently clamped. Patient has not passed gas nor had a bowel movement. Diet is not advanced yet will continue n.p.o. and bowel rest. Patient was seen and examined by me personally. I have directly supervised and reviewed documentation by the team resident and agree with its findings. ------- Plan of care was discussed with the attending, Dr. Tereso Grider, PGY-2 Documentation for date of: 05/03/25 Subjective Subjective Interval history: Leukocytosis resolving, GIOVANA resolving, Lactic acid normaized post op day 2 from ex lap with appy and mishel not yet passing gas, no BM to date pain well controlled on MIDDLE S[employer]OL HUMANITIES TEACHER Exam Vital Signs Temp Pulse Resp BP Pulse Ox O2 Del Method O2 Flow Rate 97.1 F 73 11 L 162/81 H 99 Nasal Cannula 4 05/03/25 04:00 05/03/25 04:00 05/03/25 07:11 05/03/25 04:00 05/03/25 04:00 05/03/25 04:00 05/03/25 04:00 Narrative Exam GENERAL: no acute distress, AAO x3, laying in bed, and later seen sitting upright in chair HEENT: Head AT/ NC. Mucous membranes dry. PERRL. NECK: Supple, no lymphadenopathy, no carotid bruits. CARDIOVASCULAR: RRR. Normal S1/S2, No m/r/g. No pitting edema of bilateral LEs. RESPIRATORY: some expiratory wheezing, GASTROINTESTINAL: Abdomen soft, with midline incision with gauze and tape, binder in place, incision not visualized. :henning cath in place MUSCULOSKELETAL:? No cyanosis or edema, no visible joint swelling. arthritic hand joints NEUROLOGICAL: CN II-XII grossly intact. No focal deficits. Sensation intact, symmetric. tremulous PSYCHIATRIC: Awake and alert, not agitated, normal mood and affect. SKIN: No obvious rashes, no jaundice, normal turgor. Objective Labs 05/03/25 05:14 05/03/25 05:14 Labs: Laboratory Results - last 24 hr 05/03/25 05:14 WBC 9.4 RBC 3.23 L Hgb 10.5 L Hct 31.1 L MCV 96 MCH 32.5 MCHC 33.8 RDW Std Deviation 51.9 H Plt Count 180 Neut % (Auto) 85 H Lymph % (Auto) 8 L [place] % (Auto) 5 Eos % (Auto) 0 Baso % (Auto) 1 Neut # (Auto) 8.0 H Lymph # (Auto) 0.7 L [place] # (Auto) 0.4 Eos # (Auto) 0.0 Baso # (Auto) 0.1 Immature Gran # (Auto) 0.18 H Absolute Nucleated RBC 0.00 Immature Gran % 2 H Nucleated RBC % 0 Sodium 147 H Potassium 4.3 Chloride 109 H Carbon Dioxide 30.0 Anion Gap 8 BUN 22 Creatinine 1.1 Estim Creat Clear Calc 53.0 L eGFR > 60 BUN/Creatinine Ratio 20 Glucose 112 H D Calculated Osmolality 296 H Calcium 9.2 Corrected Calcium 9.6 Phosphorus 2.9 Magnesium 2.2 Total Bilirubin 1.3 H AST 78 H ALT 112 H Alkaline Phosphatase 64 D Total Protein 6.0 Albumin 3.5 Globulin 2.5 Albumin/Globulin Ratio 1.4 Quality Measures Quality Measures VTE prophylaxis Advance care planning discussed with:: patient Assessment & Plan Assessment Current Active Medications: Generic Name Dose Route Start Last Admin Trade Name Freq PRN Reason Stop Dose Admin Enoxaparin Sodium 40 mg 04/30/25 09:00 05/02/25 08:35 Enoxaparin Sod Inj 40 Mg/0.4 Ml Syringe SC 05/14/25 08:59 40 mg QDAY ABRAHAM Administration Hydromorphone HCl 0 mg 05/01/25 15:22 05/03/25 07:29 Hydromorphone 1 Mg/Ml Residential Roofer Syringe 30ml [employer] TE[employer]ER 05/06/25 15:21 30 mg UD ABRAHAM Administration Protocol Cefoxitin Sodium 2 gm/ Sodium 50 mls @ 100 mls/hr 05/01/25 18:00 05/03/25 05:02 Chloride IV 05/08/25 17:59 100 mls/hr Q6HR ABRAHAM Administration Dextrose 1,000 mls @ 85 mls/hr 05/03/25 08:00 D5w IV 06/02/25 07:59 .[id number] ABRAHAM Labetalol HCl 10 mg 05/02/25 14:37 Labetalol Inj 5 Mg/Ml Vial 20 Ml IVP 06/01/25 14:36 Q6HR PRN elevated SBP > 170 Protocol Ondansetron HCl 4 mg 05/01/25 16:32 Ondansetron Inj 2 Mg/Ml Inj 2 Ml IVP 05/31/25 16:31 Q6HR PRN NAUSEA OR VOMITING Protocol Plan Mr. Danielle is a 70 year old gentleman with hx of BPH with urinary retention, HLD, with no hx of prior abdominal surgeries who was found to have dilated loops of small bowel on CTAP, admitted for SBO, NPO with NG tube in place to [facility]. s/p ex lap and appendectomy and cholecystectomy. not yet passing gas, nor has he had bm. POD 2 SBO s/p ex lap POD 2 appendectomy cholecystectomy hyperbillirubenima Transaminitis Ddx sbo vs mesinteric ischemia vs pancreatitis vs malignancy CTAP Tiny nonobstructing right renal calculi fluid distended small bowel loops, consider early small bowel obstruction GB US: No evidence for cholelithiasis, acute cholecystitis or biliary ductal obstruction. leukoyctosis likely reactive rather than infectious, he endorsed fevers and chills for the past 2 days and minimal appetite - leukocytosis resolving Patient underwent ex lap, Partial small bowel resection with anastomosis, cholecystectomy and appendectomy on 05/01/2025 during which she was found to have very dilated loops of small bowel; proximal ileum with segmental area of infarction and perforation; gangrenous and perforated appendix; distended and gangrenous gallbladder Lactic acid wnl, so suspicion of mesinteric ischemia is less likely. Failed upper gi series with gastrogaffin. not yet passing gas. Plan: Encourage ambulation NPO , day 4 of no nutrition, if no nutrition by day 5, will consult dietition for PPN. NG tube clamped with plan to d/c surgery consulted, appreciate recs, post op GIOVANA - resolved Baseline Cr 0.8, 1.3-->1.1 likely prerenal 2/2 diminished po intake Plan: LR 75 cc/hr BPH with urinary retention follows with [facility] home tamsulosin 0.4 qd , holding given npo pt reports that he is able to void in small increments Plan bladder scan prn and straight cath as needed >300cc voiding appropriately HLD hold home atorvastatin 40 qhs given npo Tobacco Use Disorder BL Pulmonary Nodules - stable CT chest: Bilateral pulmonary nodules dating to CT chest March 29, 2023- Stable bilateral subcentimeter pulmonary nodules Plan -continue outpatient f/u with low dose cts -discussed smoking cessation, pt not interested, will provide info on cessation if interested. Mild Normocytic Anemia hgb 13 Elevated BP likely 2/2 pain, on workforce management coordinator has recieved 1x labetalol 10 IVP Dispo: medsurg, npo with ng tube clamped pending d/c not yet passing gas, no BM Diet: npo Bowel Reg: n/a high grade obstruction VTE ppx: SCD , lovenox 40 sc qd GI ppx: not indicated Code status: FULL Plan discussed with my attending Dr. Rider and my senior resident Dr. Ralf Morris MD PGY1 Attending Provider Attestation/Addendum I, Cynthia Rider DO, attest that I was physically present for the espino portions of the service and evaluated the patient with the resident and I reviewed and discussed the case with the resident and agree with the resident's findings and plans of care as documented above Patient seen and evaluated this a.m. He is sitting up in a chair and out of bed. He is currently postop day 2. Family is at bedside. Patient has no acute complaints at this time and denies any pain. He remains on [employer] TEACHER pump currently. NG tube remains in place and has been clamped. If no nausea or vomiting, anticipate removal of NG tube. Diet to be advanced by surgery. Patient started on D5W due to mild hypernatremia. Patient has been n.p.o. for 4 days. If he continues to be n.p.o. tomorrow, will consider PPN . He denies any bowel movements or flatus at this time. Patient has otherwise been afebrile. Blood pressure remains elevated.
[2025-05-03] MEDS: DEXTROSE 5%-WATER 1,000 ML 85 ML IV ×2 (08:43→23:31)
[2025-05-03] MEDS: ENOXAPARIN SOD INJ 40 MG/0.4 ML SYRINGE SC (08:49)
[2025-05-03] MEDS: LABETALOL INJ 5 MG/ML VIAL 20 ML 10 MG IVP (09:55)
--- NOTE | 2025-05-03 11:39 | PD.SURPROG ---
Documentation for date of: 05/03/25 Subjective Subjective Narrative: Patient is seen and examined. His pain is well-controlled. He denies nausea or vomiting. He has not passed flatus or bowel movement yet Exam Vital Signs Temp Pulse Resp BP Pulse Ox O2 Del Method O2 Flow Rate 98.7 F 76 16 175/90 H 97 Nasal Cannula 4 05/03/25 10:39 05/03/25 11:18 05/03/25 11:18 05/03/25 10:39 05/03/25 11:18 05/03/25 10:39 05/03/25 11:18 Constitutional Constitutional: no acute distress Routine Abdominal Exam Comments: Abdomen is soft and mildly distended. Incision with dressings clean, dry and intact Assessment & Plan Assessment Additional comments: Postop day #2 status post partial small bowel resection, cholecystectomy and appendectomy Plan Keep n.p.o. with IV fluids and IV antibiotics. Will clamp the NG tube. Increase ambulation and use incentive spirometer PROCEDURES: Procedures Exploratory laparotomy, partial small bowel resection with anastomosis Cholecystectomy Appendectomy
--- NOTE | 2025-05-03 15:15 | PC.PT ---
Patient was approached for PT eval at 15:05. Patient reported he could not work with PT today due to his intense pain and his dizziness. 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 PT offered to try sitting at the E[facility] only due to his dizziness but he refused again stating he would work with PT tomorrow. PT informed patient that coverage is limited on the weekends and he needed to work with PT tomorrow morning and not refuse. Patient verbalized his understanding. Will re-attempt PT eval at another time. RN made aware.
--- NOTE | 2025-05-03 16:51 | XR_ITS ---
CLINICAL INDICATION: shortness of breath TECHNIQUE: XR chest 1V Exam date and time: 05/03/2025 at 4:58 p.m. COMPARISON: 04/29/2025 FINDINGS: The cardiomediastinal silhouette is within normal limits for portable technique. No overt diffuse pulmonary edema pattern. Mild hypoventilation noted with interval development of mild to moderate bibasilar opacities since prior exam, which could represent a combination of aspiration/pneumonia and dependent atelectasis. No sizable pleural effusions. No pneumothorax. No lung mass. Nasogastric tube tip is in the proximal stomach/gastric fundus territory as before. Degenerative changes of the skeletal structures. No apparent acute osseous abnormality. IMPRESSION: Mild hypoventilation noted with interval development of mild to moderate bibasilar opacities since prior exam, which could represent a combination of aspiration/pneumonia and dependent atelectasis.
[2025-05-03] MEDS: DOXYCYCLINE INJ 100 MG in SODIUM CHLORIDE 0.9% (POP) 100 ML IV (21:22)
[2025-05-04] VITALS (12 sets, daily range): BP systolic 118–176; BP diastolic 51–91; PULSE 59–75; RESP 12–20; TEMP 36.1–36.4; O2SAT 95–99
[2025-05-04] MEDS: CEFOXITIN 2 GM in SODIUM CHLORIDE 0.9% (Popper) 50 ML IV ×4 (05:41→23:43)
[2025-05-04 06:16] LABS: Basophils # (Auto) 0.0 Thou/mm3 (0.0-0.2); Basophils % (Auto) 0 % (0-2.5); Eosinophils # (Auto) 0.0 Thou/mm3 (0.0-0.5); Eosinophils % (Auto) 0 % (0-10); Hematocrit 29.7 % (41.0-53.0); Hemoglobin 10.1 g/dL (13.5-16.0); Immature Granulocytes Auto 0.24 Thou/mm3 (0.00-0.00); Lymphocytes # (Auto) 0.8 Thou/mm3 (1.0-4.8); Lymphocytes % (Auto) 7 % (10-50); Mean Corpuscular HGB Conc 34.0 g/dl (31.0-37.0); Mean Corpuscular Hemoglobin 31.8 pg (25.0-35.0); Mean Corpuscular Volume 93 fL (80-100); Monocytes # (Auto) 0.5 Thou/mm3 (0.0-0.8); Monocytes % (Auto) 4 % (0-12); Neutrophils # (Auto) 9.7 Thou/mm3 (1.8-7.7); Neutrophils % (Auto) 86 % (37-80); Nucleated Red Blood Cell # 0.00 Thou/mm3 (0.00-0.00); Nucleated Red Blood Cell % 0 /100 WBC (0); Platelet Count 173 Thou/mm3 (140-440); RDW Standard Deviation 50.3 fL (35.1-43.9); Red Blood Count 3.18 Miln/mm3 (4.50-5.90); White Blood Count 11.3 Thou/mm3 (3.8-10.6)
[2025-05-04 06:45] LABS: Alanine Aminotransferase 76 U/L (10-49); Albumin, Serum 3.4 gm/dL (3.4-4.8); Albumin/Globulin Ratio 1.6 (1.2-2.2); Alkaline Phosphatase 72 U/L (46-116); Anion Gap 9 (7-16); Aspartate Amino Transferase 38 U/L (0-34); BUN/Creatinine Ratio 24 Ratio (12-20); Bilirubin,Total 1.5 mg/dL (0.3-1.2); Blood Urea Nitrogen 22 mg/dL (9-23); Calcium 8.7 mg/dL (8.3-10.6); Calcium (Corrected) 9.2 mg/dL (8.5-10.1); Carbon Dioxide 28.5 mMol/L (20.0-31.0); Chloride 105 mMol/L (98-107); Creatinine (Component) 0.9 mg/dL (0.6-1.3); Estimated Creatinine Clearance 64.8 mL/min (>60); Globulin 2.1 gm/dL (2.3-3.5); Glucose 125 mg/dL (74-106); Magnesium 1.8 mg/dL (1.6-2.6); Osmolality,Calculated 287 (275-295); Phosphorous 2.7 mg/dL (2.4-5.1); Potassium 3.6 mMol/L (3.4-5.1); Sodium 142 mMol/L (136-145); Total Protein 5.5 gm/dL (5.7-8.2); eGFR > 60 See Note
--- NOTE | 2025-05-04 08:23 | PD.SURPROG ---
Documentation for date of: 05/04/25 Subjective Subjective Narrative: Patient is seen and examined. He is resting comfortably, his pain is improving. His NG tube has been clamped he denies nausea or vomiting. He has not passed flatus or had bowel movement yet Exam Vital Signs Temp Pulse Resp BP Pulse Ox O2 Del Method O2 Flow Rate 97.2 F 69 18 170/89 H 97 Nasal Cannula 3 05/04/25 08:00 05/04/25 08:00 05/04/25 08:00 05/04/25 08:00 05/04/25 08:00 05/04/25 08:00 05/04/25 08:00 Constitutional Constitutional: no acute distress Routine Abdominal Exam Comments: Abdomen is soft and minimally distended. He has hypoactive bowel sounds. Incision with dressings clean, dry and intact Assessment & Plan Assessment Additional comments: Postop day #3 status post partial small bowel resection, cholecystectomy and appendectomy Plan Continue IV antibiotics. DC NG tube and start patient on clear liquids PROCEDURES: Procedures Exploratory laparotomy, partial small bowel resection with anastomosis Cholecystectomy Appendectomy
[2025-05-04] MEDS: ASCORBIC ACID 250 MG TABLET 500 MG PO ×2 (08:52→20:57)
[2025-05-04] MEDS: DOXYCYCLINE INJ 100 MG in SODIUM CHLORIDE 0.9% (POP) 100 ML IV ×2 (08:53→20:56)
[2025-05-04] MEDS: DOCUSATE SOD 100 MG CAPSULE PO ×2 (08:53→20:57)
[2025-05-04] MEDS: ZINC SULFATE 220 MG CAPSULE PO (08:53)
[2025-05-04] MEDS: ENOXAPARIN SOD INJ 40 MG/0.4 ML SYRINGE SC (08:53)
[2025-05-04] MEDS: hydrALAZINE INJ 20 MG/ML VIAL 5 MG IVP ×2 (09:08→21:48)
--- NOTE | 2025-05-04 10:47 | PC.PT ---
05/04/2025 PT judith performed- pt only bella 1min sitting at EOB
[2025-05-04] MEDS: HYDROmorphone INJ 2 MG/ML VIAL 1 MG IVP ×4 (11:14→23:56)
--- NOTE | 2025-05-04 14:41 | PC.SS ---
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 DC plan home when ready
[2025-05-04] MEDS: ONDANSETRON INJ 2 MG/ML INJ 2 ML 4 MG IVP ×2 (14:59→20:59)
--- NOTE | 2025-05-04 18:41 | PD.RESPRO ---
Documentation for date of: 05/04/25 Subjective Subjective Interval history: Patient seen and examined at bedside. Chest x-ray yesterday showed aspiration pneumonia versus atelectasis. NG tube removed and patient started on clear liquids. Patient has still not passed flatus. Exam Vital Signs Temp Pulse Resp BP Pulse Ox O2 Del Method O2 Flow Rate 97.1 F 75 15 118/51 L 98 Nasal Cannula 3 05/04/25 15:44 05/04/25 16:00 05/04/25 15:44 05/04/25 15:44 05/04/25 15:44 05/04/25 15:44 05/04/25 15:44 Narrative Exam General: Awake and in no acute distress. Conversational and non-toxic appearing. Neurologic: GCS 15. Alert and oriented x3, no gross neurological deficit, and patient able to move all 4 extremities. HEENT: Normocephalic, atraumatic, mucous membranes moist. Pupils reactive to light. Heart: Regular rate and rhythm, normal S1 and S2, no murmurs. Lungs: Clear to auscultation bilaterally with no wheezing or crackles. Abdomen: Midline incision shows no sign of infection, patient has diffuse abdominal tenderness. Extremities: No edema. 2+ radial and dorsalis pedis pulses bilaterally. Skin: Warm. Dry. No rash or ecchymoses. Objective Labs 05/05/25 04:37 05/05/25 04:37 Labs: Laboratory Results - last 24 hr 05/04/25 05:30 WBC 11.3 H RBC 3.18 L Hgb 10.1 L Hct 29.7 L MCV 93 MCH 31.8 MCHC 34.0 RDW Std Deviation 50.3 H Plt Count 173 Neut % (Auto) 86 H Lymph % (Auto) 7 L [place] % (Auto) 4 Eos % (Auto) 0 Baso % (Auto) 0 Neut # (Auto) 9.7 H Lymph # (Auto) 0.8 L [place] # (Auto) 0.5 Eos # (Auto) 0.0 Baso # (Auto) 0.0 Immature Gran # (Auto) 0.24 H Absolute Nucleated RBC 0.00 Immature Gran % 2 H Nucleated RBC % 0 Sodium 142 Potassium 3.6 D Chloride 105 Carbon Dioxide 28.5 Anion Gap 9 BUN 22 Creatinine 0.9 Estim Creat Clear Calc 64.8 eGFR > 60 BUN/Creatinine Ratio 24 H Glucose 125 H Calculated Osmolality 287 Calcium 8.7 Corrected Calcium 9.2 Phosphorus 2.7 Magnesium 1.8 Total Bilirubin 1.5 H AST 38 H ALT 76 H Alkaline Phosphatase 72 Total Protein 5.5 L Albumin 3.4 Globulin 2.1 L Albumin/Globulin Ratio 1.6 Procalcitonin Cancelled Quality Measures Quality Measures VTE prophylaxis Advance care planning discussed with:: patient Assessment & Plan Assessment Current Active Medications: Generic Name Dose Route Start Last Admin Trade Name Freq PRN Reason Stop Dose Admin Ascorbic Acid 500 mg 05/04/25 09:00 05/04/25 08:52 Ascorbic Acid 250 Mg Tablet PO 06/03/25 08:59 500 mg BID ABRAHAM Administration Docusate Sodium 100 mg 05/04/25 09:00 05/04/25 08:53 Docusate Sod 100 Mg Capsule PO 06/03/25 08:59 100 mg BID ABRAHAM Administration Protocol Enoxaparin Sodium 40 mg 04/30/25 09:00 05/04/25 08:53 Enoxaparin Sod Inj 40 Mg/0.4 Ml Syringe SC 05/14/25 08:59 40 mg QDAY ABRAHAM Administration Hydromorphone HCl 1 mg 05/04/25 08:25 05/04/25 14:58 Hydromorphone Inj 2 Mg/Ml Vial IVP 05/09/25 08:24 1 mg Q3HR PRN Administration PAIN SCALE 7-10 (Severe Cefoxitin Sodium 2 gm/ Sodium 50 mls @ 100 mls/hr 05/01/25 18:00 05/04/25 17:02 Chloride IV 05/08/25 17:59 100 mls/hr Q6HR ABRAHAM Administration Doxycycline Hyclate 100 mg/ 100 mls @ 100 mls/hr 05/03/25 21:00 05/04/25 08:53 Sodium Chloride IV 05/10/25 20:59 100 mls/hr BID ABRAHAM Administration Labetalol HCl 10 mg 05/02/25 14:37 05/03/25 09:55 Labetalol Inj 5 Mg/Ml Vial 20 Ml IVP 06/01/25 14:36 10 mg Q6HR PRN Administration elevated SBP > 170 Protocol Ondansetron HCl 4 mg 05/01/25 16:32 05/04/25 14:59 Ondansetron Inj 2 Mg/Ml Inj 2 Ml IVP 05/31/25 16:31 4 mg Q6HR PRN Administration NAUSEA OR VOMITING Protocol Zinc Sulfate 220 mg 05/04/25 09:00 05/04/25 08:53 Zinc Sulfate 220 Mg Capsule PO 06/03/25 08:59 220 mg QDAY ABRAHAM Administration Plan Summary: Mr. Danielle is a 70 year old gentleman with hx of BPH with urinary retention, HLD, with no hx of prior abdominal surgeries who was found to have dilated loops of small bowel on CTAP, admitted for SBO, NPO with NG tube in place to [facility]. s/p ex lap and appendectomy and cholecystectomy. not yet passing gas, nor has he had bm. POD 3. SBO s/p ex lap POD 2 appendectomy cholecystectomy hyperbillirubenima Transaminitis Ddx sbo vs mesinteric ischemia vs pancreatitis vs malignancy CTAP Tiny nonobstructing right renal calculi fluid distended small bowel loops, consider early small bowel obstruction GB US: No evidence for cholelithiasis, acute cholecystitis or biliary ductal obstruction. leukoyctosis likely reactive rather than infectious, he endorsed fevers and chills for the past 2 days and minimal appetite - leukocytosis resolving Patient underwent ex lap, Partial small bowel resection with anastomosis, cholecystectomy and appendectomy on 05/01/2025 during which she was found to have very dilated loops of small bowel; proximal ileum with segmental area of infarction and perforation; gangrenous and perforated appendix; distended and gangrenous gallbladder Lactic acid wnl, so suspicion of mesinteric ischemia is less likely. Failed upper gi series with gastrogaffin. Patient denies passing gas or bowel movements Plan: Encourage ambulation NG tube removed Clear liquid diet started Monitoring for flatus and bowel movement surgery consulted, appreciate recs, post op Stage II hypertension Patient had a BP of 171/89 Patient received 5 mg hydralazine, improved to 118/51 Plan: Continue to monitor Labetalol on board as needed GIOVANA - resolved Baseline Cr 0.8, 1.3-->1.1 likely prerenal 2/2 diminished po intake BPH with urinary retention follows with [facility] home tamsulosin 0.4 qd , holding given npo pt reports that he is able to void in small increments Plan bladder scan prn and straight cath as needed >300cc voiding appropriately HLD hold home atorvastatin 40 qhs, patient trying oral diet today Tobacco Use Disorder BL Pulmonary Nodules - stable CT chest: Bilateral pulmonary nodules dating to CT chest March 29, 2023- Stable bilateral subcentimeter pulmonary nodules Chest x-ray on 05/03/2025 showed mild hypoventilation noted with interval development of mild to moderate bibasilar opacities since prior exam, which could represent a combination of aspiration/pneumonia and dependent atelectasis. Plan -continue outpatient f/u with low dose cts -discussed smoking cessation, pt not interested, will provide info on cessation if interested. Mild Normocytic Anemia hgb stable Appears to be a chronic issue Plan: No direct intervention at this time Dispo: Medsurg, NG tube removed, starting clear liquid diet, monitoring for flatus and bowel movements. Diet: Clear liquid Bowel Reg: n/a high grade obstruction VTE ppx: SCD , lovenox 40 sc qd GI ppx: not indicated Code status: FULL Patient was seen and discussed with my attending physician Dr. Tereso HUGO. Kieran Lira DO PGY-1. Attending Provider Attestation/Addendum I, Cynthia Rider DO, attest that I was physically present for the espino portions of the service and evaluated the patient with the resident and I reviewed and discussed the case with the resident and agree with the resident's findings and plans of care as documented above Patient is very irritable today since he states he was not able to sleep last night and remains to have pain. Patient has not walked, only sat up in a chair. He denies passing flatus or BM. He reports that he is able to urinate slowly. WIll continue with antibiotics at this time and pending BM. NG tube has been removed and patient was started on CLD, but patient states he is only able to take a few bites. He denies any nausea or vomiting otherwise.
[2025-05-05] VITALS (9 sets, daily range): BP systolic 158–166; BP diastolic 83–95; PULSE 70–85; RESP 14–20; TEMP 36.2–36.3; O2SAT 95–98
[2025-05-05] MEDS: ONDANSETRON INJ 2 MG/ML INJ 2 ML 4 MG IVP (04:14)
[2025-05-05] MEDS: HYDROmorphone INJ 2 MG/ML VIAL 1 MG IVP ×3 (04:14→21:41)
[2025-05-05] MEDS: CEFOXITIN 2 GM in SODIUM CHLORIDE 0.9% (Popper) 50 ML IV ×3 (05:12→17:08)
[2025-05-05 05:17] LABS: Basophils # (Auto) 0.1 Thou/mm3 (0.0-0.2); Basophils % (Auto) 0 % (0-2.5); Eosinophils # (Auto) 0.0 Thou/mm3 (0.0-0.5); Eosinophils % (Auto) 0 % (0-10); Hematocrit 31.7 % (41.0-53.0); Hemoglobin 11.1 g/dL (13.5-16.0); Immature Granulocytes Auto 0.32 Thou/mm3 (0.00-0.00); Lymphocytes # (Auto) 0.9 Thou/mm3 (1.0-4.8); Lymphocytes % (Auto) 7 % (10-50); Mean Corpuscular HGB Conc 35.0 g/dl (31.0-37.0); Mean Corpuscular Hemoglobin 32.6 pg (25.0-35.0); Mean Corpuscular Volume 93 fL (80-100); Monocytes # (Auto) 0.7 Thou/mm3 (0.0-0.8); Monocytes % (Auto) 5 % (0-12); Neutrophils # (Auto) 11.5 Thou/mm3 (1.8-7.7); Neutrophils % (Auto) 85 % (37-80); Nucleated Red Blood Cell # 0.00 Thou/mm3 (0.00-0.00); Nucleated Red Blood Cell % 0 /100 WBC (0); Platelet Count 207 Thou/mm3 (140-440); RDW Standard Deviation 50.3 fL (35.1-43.9); Red Blood Count 3.41 Miln/mm3 (4.50-5.90); White Blood Count 13.6 Thou/mm3 (3.8-10.6)
[2025-05-05 05:56] LABS: Alanine Aminotransferase 65 U/L (10-49); Albumin, Serum 3.6 gm/dL (3.4-4.8); Albumin/Globulin Ratio 1.5 (1.2-2.2); Alkaline Phosphatase 141 U/L (46-116); Anion Gap 10 (7-16); Aspartate Amino Transferase 33 U/L (0-34); BUN/Creatinine Ratio 25 Ratio (12-20); Bilirubin,Total 2.1 mg/dL (0.3-1.2); Blood Urea Nitrogen 25 mg/dL (9-23); Calcium 8.8 mg/dL (8.3-10.6); Calcium (Corrected) 9.1 mg/dL (8.5-10.1); Carbon Dioxide 26.8 mMol/L (20.0-31.0); Chloride 108 mMol/L (98-107); Creatinine (Component) 1.0 mg/dL (0.6-1.3); Estimated Creatinine Clearance 58.3 mL/min (>60); Globulin 2.4 gm/dL (2.3-3.5); Glucose 112 mg/dL (74-106); Magnesium 2.0 mg/dL (1.6-2.6); Osmolality,Calculated 294 (275-295); Phosphorous 4.5 mg/dL (2.4-5.1); Potassium 3.6 mMol/L (3.4-5.1); Sodium 145 mMol/L (136-145); Total Protein 6.0 gm/dL (5.7-8.2); eGFR > 60 See Note
--- NOTE | 2025-05-05 08:08 | PD.RESPRO ---
Documentation for date of: 05/05/25 Subjective Subjective Interval history: Patient seen and examined at bedside, patient appears uncomfortable he states that he has not passed gas nor is he had bowel movement today. His abdomen continues to be distended with incision intact with dressing in place KUB demonstrates dilated loops of bowel consistent with small bowel obstruction and subsequent CTAP without contrast shows air-fluid levels in the small bowel. Will discuss case further with Dr Weeks who recommended make patient n.p.o. Imaging shows atelectasis in the lower lung bases, encourage patient to utilize incentive spirometer 10 times throughout the day Started PPN with 600 kcal, per pharmacy dietitian is unavailable today and will make recommendations for rate and nutritional content tomorrow. Exam Vital Signs Temp Pulse Resp BP Pulse Ox O2 Del Method O2 Flow Rate 97.1 F 73 16 161/86 H 96 Nasal Cannula 2 05/05/25 04:00 05/05/25 07:14 05/05/25 07:14 05/05/25 04:00 05/05/25 07:14 05/05/25 04:00 05/05/25 07:14 Narrative Exam GENERAL: no acute distress, AAO x3, laying in bed, HEENT: Head AT/ NC. Mucous membranes dry. PERRL. NECK: Supple, no lymphadenopathy, no carotid bruits. CARDIOVASCULAR: RRR. Normal S1/S2, No m/r/g. No pitting edema of bilateral LEs. RESPIRATORY: some expiratory wheezing, GASTROINTESTINAL: Abdomen soft, with midline incision with gauze and tape, binder in place, incision not visualized. MUSCULOSKELETAL:? No cyanosis or edema, no visible joint swelling. arthritic hand joints NEUROLOGICAL: CN II-XII grossly intact. No focal deficits. Sensation intact, symmetric. tremulous PSYCHIATRIC: Awake and alert, not agitated, normal mood and affect. SKIN: No obvious rashes, no jaundice, normal turgor. Objective Labs 05/05/25 04:37 05/05/25 04:37 Labs: Laboratory Results - last 24 hr 05/04/25 05/05/25 05:30 04:37 WBC 13.6 H RBC 3.41 L Hgb 11.1 L Hct 31.7 L MCV 93 MCH 32.6 MCHC 35.0 RDW Std Deviation 50.3 H Plt Count 207 D Neut % (Auto) 85 H Lymph % (Auto) 7 L [place] % (Auto) 5 Eos % (Auto) 0 Baso % (Auto) 0 Neut # (Auto) 11.5 H Lymph # (Auto) 0.9 L [place] # (Auto) 0.7 Eos # (Auto) 0.0 Baso # (Auto) 0.1 Immature Gran # (Auto) 0.32 H Absolute Nucleated RBC 0.00 Immature Gran % 2 H Nucleated RBC % 0 Sodium 145 Potassium 3.6 Chloride 108 H Carbon Dioxide 26.8 Anion Gap 10 BUN 25 H Creatinine 1.0 Estim Creat Clear Calc 58.3 L eGFR > 60 BUN/Creatinine Ratio 25 H Glucose 112 H Calculated Osmolality 294 Calcium 8.8 Corrected Calcium 9.1 Phosphorus 4.5 Magnesium 2.0 Total Bilirubin 2.1 H D AST 33 ALT 65 H Alkaline Phosphatase 141 H D Total Protein 6.0 Albumin 3.6 Globulin 2.4 Albumin/Globulin Ratio 1.5 Procalcitonin Cancelled Quality Measures Quality Measures VTE prophylaxis Advance care planning discussed with:: patient Assessment & Plan Assessment Current Active Medications: Generic Name Dose Route Start Last Admin Trade Name Freq PRN Reason Stop Dose Admin Ascorbic Acid 500 mg 05/04/25 09:00 05/04/25 20:57 Ascorbic Acid 250 Mg Tablet PO 06/03/25 08:59 500 mg BID ABRAHAM Administration Docusate Sodium 100 mg 05/04/25 09:00 05/04/25 20:57 Docusate Sod 100 Mg Capsule PO 06/03/25 08:59 100 mg BID ABRAHAM Administration Protocol Enoxaparin Sodium 40 mg 04/30/25 09:00 05/04/25 08:53 Enoxaparin Sod Inj 40 Mg/0.4 Ml Syringe SC 05/14/25 08:59 40 mg QDAY ABRAHAM Administration Hydromorphone HCl 1 mg 05/04/25 08:25 05/05/25 04:14 Hydromorphone Inj 2 Mg/Ml Vial IVP 05/09/25 08:24 1 mg Q3HR PRN Administration PAIN SCALE 7-10 (Severe Cefoxitin Sodium 2 gm/ Sodium 50 mls @ 100 mls/hr 05/01/25 18:00 05/05/25 05:12 Chloride IV 05/08/25 17:59 100 mls/hr Q6HR ABRAHAM Administration Doxycycline Hyclate 100 mg/ 100 mls @ 100 mls/hr 05/03/25 21:00 05/04/25 20:56 Sodium Chloride IV 05/10/25 20:59 100 mls/hr BID ABRAHAM Administration Labetalol HCl 10 mg 05/02/25 14:37 05/03/25 09:55 Labetalol Inj 5 Mg/Ml Vial 20 Ml IVP 06/01/25 14:36 10 mg Q6HR PRN Administration elevated SBP > 170 Protocol Ondansetron HCl 4 mg 05/01/25 16:32 05/05/25 04:14 Ondansetron Inj 2 Mg/Ml Inj 2 Ml IVP 05/31/25 16:31 4 mg Q6HR PRN Administration NAUSEA OR VOMITING Protocol Zinc Sulfate 220 mg 05/04/25 09:00 05/04/25 08:53 Zinc Sulfate 220 Mg Capsule PO 06/03/25 08:59 220 mg QDAY ABRAHAM Administration Plan Summary: Mr. Danielle is a 70 year old gentleman with hx of BPH with urinary retention, HLD, with no hx of prior abdominal surgeries who was found to have dilated loops of small bowel on CTAP, admitted for SBO, NPO with NG tube in place to [facility]. s/p ex lap and appendectomy and cholecystectomy. not yet passing gas, nor has he had bm. repeat imaging with SBO pattern. started ppn SBO s/p ex lap appendectomy cholecystectomy hyperbillirubenima Transaminitis Ddx sbo vs mesinteric ischemia vs pancreatitis vs malignancy CTAP Tiny nonobstructing right renal calculi fluid distended small bowel loops, consider early small bowel obstruction GB US: No evidence for cholelithiasis, acute cholecystitis or biliary ductal obstruction. leukoyctosis likely reactive rather than infectious, he endorsed fevers and chills for the past 2 days and minimal appetite - leukocytosis resolving Patient underwent ex lap, Partial small bowel resection with anastomosis, cholecystectomy and appendectomy on 05/01/2025 during which she was found to have very dilated loops of small bowel; proximal ileum with segmental area of infarction and perforation; gangrenous and perforated appendix; distended and gangrenous gallbladder Lactic acid wnl, so suspicion of mesinteric ischemia is less likely. Failed upper gi series with gastrogaffin. Patient denies passing gas or bowel movements post op imaging without resolution of sbo Plan: Repeat CT with air fluid levels KUB with dilated loops of small bowel with some contrast Encourage ambulation PPN intiated, 600kcal, will discuss with dietitian tomorrow Lipids qweekly Monitoring for flatus and bowel movement surgery consulted, appreciate recs, post op Stage II hypertension Patient had a BP of 171/89 Patient received 5 mg hydralazine, improved to 118/51 Plan: Continue to monitor cannot give labetalol on on med surg hydral 5 mg IV for SBP >170 GIOVANA - resolved Baseline Cr 0.8, 1.3-->1.1 likely prerenal 2/2 diminished po intake BPH with urinary retention follows with [facility] home tamsulosin 0.4 qd , holding given npo pt reports that he is able to void in small increments Plan bladder scan prn and straight cath as needed >300cc voiding appropriately HLD hold home atorvastatin 40 qhs, patient trying oral diet today Tobacco Use Disorder BL Pulmonary Nodules - stable CT chest: Bilateral pulmonary nodules dating to CT chest March 29, 2023- Stable bilateral subcentimeter pulmonary nodules Chest x-ray on 05/03/2025 showed mild hypoventilation noted with interval development of mild to moderate bibasilar opacities since prior exam, which could represent a combination of aspiration/pneumonia and dependent atelectasis. Plan -continue outpatient f/u with low dose cts -discussed smoking cessation, pt not interested, will provide info on cessation if interested. Mild Normocytic Anemia hgb stable Appears to be a chronic issue Plan: No direct intervention at this time Dispo: Medsurg, NG tube removed, regressed to NPO given no gas no bm,, monitoring for flatus and bowel movements. Diet: NPO Bowel Reg: n/a high grade obstruction VTE ppx: SCD , lovenox 40 sc qd GI ppx: not indicated Code status: FULL Plan discussed with my attending Dr. Tereso Morris MD PGY1 Attending Provider Attestation/Addendum Cynthia Oshea DO, attest that I was physically present for the espino portions of the service and evaluated the patient with the resident and I reviewed and discussed the case with the resident and agree with the resident's findings and plans of care as documented above Patient seen and evaluated this AM. He remains very irritated due to pain and discomfort. Abdomen appears more distended and tender to palpation. KUB shows distended small bowel. Surgeon was notified and advised to place patient NPO. Patient has been tolerating CLDs, but not eating much. Will start patient on PPN since it has been at least 5 days without adequate PO intake.
[2025-05-05] MEDS: ZINC SULFATE 220 MG CAPSULE PO (08:33)
[2025-05-05] MEDS: ASCORBIC ACID 250 MG TABLET 500 MG PO (08:33)
[2025-05-05] MEDS: DOXYCYCLINE INJ 100 MG in SODIUM CHLORIDE 0.9% (POP) 100 ML IV ×2 (08:33→21:47)
[2025-05-05] MEDS: ENOXAPARIN SOD INJ 40 MG/0.4 ML SYRINGE SC (08:33)
[2025-05-05] MEDS: DOCUSATE SOD 100 MG CAPSULE PO (08:33)
--- NOTE | 2025-05-05 09:32 | XR_ITS ---
Examination: Abdomen AP single view Technique: AP portable supine abdomen, single view Exam date and time: May 05, 2025, 0959 hours INDICATIONS: Pain postop. FINDINGS: Contrast in the colon Contrast however in multiple air distended small bowel loops Midline surgical pato IMPRESSION: Prominently air distended small bowel loops, clinical correlation advised
--- NOTE | 2025-05-05 10:43 | XR_ITS ---
Examination: CT abdomen and pelvis without contrast. Coronal 3-D reconstructions. Sagittal 2-D reconstructions. Date and time of exam: May 05, 2025, 12:32 p.m., comparison April 29, 2025 INDICATIONS: History of renal calculi, fluid distended small bowel loops on CT abdomen pelvis April 29, 2025, abdominal pain 2 days CTDI: vol (mGy): 5.73 DLP: (mGycm): 299 Technique: Axial images of the abdomen have been obtained, 3 mm slice thickness Intravenous contrast material has not been administered. Low dose protocols were performed. One or more of the following dose reduction techniques were used; automated exposure control, adjustment of the mA and/or KV according to patient size, use of iterative reconstruction technique. Findings: Significant bibasilar pneumonia small bilateral pleural effusions Small pericardial effusion Small fluid air collection in the gallbladder fossa, axial image 58, 35 mm Mild fluid around the spleen No pancreatic mass Tiny bilateral nonobstructing renal calculi Prominently fluid and air distended small bowel loops, postsurgical changes anterior abdominal wall Urinary bladder intact Prostatomegaly, transverse dimension 4.8 cm Moderate is narrowing L5-S1 IMPRESSION: Significant bibasilar pneumonia Small air-fluid collections in the gallbladder fossa, clinical correlation as to abscess in the gallbladder fossa Small bowel obstruction pattern
[2025-05-05 10:57] LABS: Cardiac Risk Estimate 7.8 RATIO (4.0-6.7); Cholesterol 124 mg/dL (132-200); HDL Cholesterol 16 mg/dL (40-60); LDL Cholesterol,Calculated 80 mg/dL (0-130); Triglycerides 140 mg/dL (30-150)
--- NOTE | 2025-05-05 12:22 | PD.SURPROG ---
Documentation for date of: 05/05/25 Subjective Subjective Narrative: Patient is seen and examined. He has incisional abdominal pain. He tolerating clears without nausea or vomiting, however he is not eating well. He denies passing flatus or bowel movement yet Exam Vital Signs Temp Pulse Resp BP Pulse Ox O2 Del Method O2 Flow Rate 97.1 F 70 15 166/83 H 96 Nasal Cannula 2 05/05/25 08:00 05/05/25 08:00 05/05/25 08:00 05/05/25 08:00 05/05/25 08:00 05/05/25 08:00 05/05/25 08:00 Constitutional Constitutional: no acute distress Routine Abdominal Exam Comments: Abdomen is soft but distended. Incision is clean, dry and intact Assessment & Plan Assessment Additional comments: Postop day #4 status post partial small bowel resection, cholecystectomy and appendectomy. His abdominal distention most likely postoperative ileus as patient had not infarcted bowel and purulent peritonitis Plan Continue IV antibiotics. Increase ambulation. No reason to subject patient to CT scan at this point PROCEDURES: Procedures Exploratory laparotomy, partial small bowel resection with anastomosis Cholecystectomy Appendectomy
[2025-05-05] MEDS: hydrALAZINE INJ 20 MG/ML VIAL 5 MG IVP (13:47)
[2025-05-06] VITALS (9 sets, daily range): BP systolic 158–177; BP diastolic 81–94; PULSE 68–80; RESP 16–18; TEMP 36–36.8; O2SAT 96–98; BMI 20.1
[2025-05-06] MEDS: CEFOXITIN 2 GM in SODIUM CHLORIDE 0.9% (Popper) 50 ML IV ×5 (00:05→23:50)
[2025-05-06] MEDS: HYDROmorphone INJ 2 MG/ML VIAL 1 MG IVP ×4 (00:31→21:31)
[2025-05-06] MEDS: ENOXAPARIN SOD INJ 40 MG/0.4 ML SYRINGE SC (08:47)
[2025-05-06] MEDS: DOXYCYCLINE INJ 100 MG in SODIUM CHLORIDE 0.9% (POP) 100 ML IV ×2 (08:47→20:30)
[2025-05-06 08:58] LABS: Basophils # (Auto) 0.1 Thou/mm3 (0.0-0.2); Basophils % (Auto) 0 % (0-2.5); Eosinophils # (Auto) 0.0 Thou/mm3 (0.0-0.5); Eosinophils % (Auto) 0 % (0-10); Hematocrit 32.3 % (41.0-53.0); Hemoglobin 10.9 g/dL (13.5-16.0); Immature Granulocytes Auto 0.29 Thou/mm3 (0.00-0.00); Lymphocytes # (Auto) 0.9 Thou/mm3 (1.0-4.8); Lymphocytes % (Auto) 6 % (10-50); Mean Corpuscular HGB Conc 33.7 g/dl (31.0-37.0); Mean Corpuscular Hemoglobin 31.5 pg (25.0-35.0); Mean Corpuscular Volume 93 fL (80-100); Monocytes # (Auto) 0.7 Thou/mm3 (0.0-0.8); Monocytes % (Auto) 5 % (0-12); Neutrophils # (Auto) 13.8 Thou/mm3 (1.8-7.7); Neutrophils % (Auto) 87 % (37-80); Nucleated Red Blood Cell # 0.00 Thou/mm3 (0.00-0.00); Nucleated Red Blood Cell % 0 /100 WBC (0); Platelet Count 224 Thou/mm3 (140-440); RDW Standard Deviation 50.4 fL (35.1-43.9); Red Blood Count 3.46 Miln/mm3 (4.50-5.90); White Blood Count 15.8 Thou/mm3 (3.8-10.6)
--- NOTE | 2025-05-06 09:12 | ESPR_ITS ---
<Statement entered by Cynthia Rider DO - 05/06/25 16:46> Duplicate <Statement entered by Madhuri Grider MD - 05/06/25 16:08> Patient is seen at bedside continues to be in significant abdominal pain. Patient's diet is not advanced therefore PPN is started. Repeat imaging showed significant bibasilar pneumonia and small air-fluid collection in the gallbladder fossa and small bowel obstruction pattern. However this morning patient states he is passing gas therefore we will continue to monitor. And continue antibiotics. Patient is encouraged to increase mobility as tolerated. For elevated blood pressure and due to n.p.o. patient is started on hydralazine pushes with parameters. Awaiting further recommendations from surgery. Patient was seen and examined by me personally. I have directly supervised and reviewed documentation by the team resident and agree with its findings. ------- Plan of care was discussed with the attending, Dr. Tereso Girder, PGY-2 Documentation for date of: 05/06/25 Subjective Subjective Interval history: ignore this note. please refer to note writteen 10:02 am Exam Vital Signs Temp Pulse Resp BP Pulse Ox O2 Del Method O2 Flow Rate 97.7 F 68 18 158/81 H 97 Nasal Cannula 4 05/06/25 08:00 05/06/25 08:00 05/06/25 08:00 05/06/25 08:00 05/06/25 08:00 05/06/25 08:00 05/06/25 08:00 Objective Labs 05/06/25 08:29 05/06/25 08:29 Labs: Laboratory Results - last 24 hr 05/05/25 05/06/25 04:37 08:29 WBC 15.8 H RBC 3.46 L Hgb 10.9 L Hct 32.3 L MCV 93 MCH 31.5 MCHC 33.7 RDW Std Deviation 50.4 H Plt Count 224 Neut % (Auto) 87 H Lymph % (Auto) 6 L [place] % (Auto) 5 Eos % (Auto) 0 Baso % (Auto) 0 Neut # (Auto) 13.8 H Lymph # (Auto) 0.9 L [place] # (Auto) 0.7 Eos # (Auto) 0.0 Baso # (Auto) 0.1 Immature Gran # (Auto) 0.29 H Absolute Nucleated RBC 0.00 Immature Gran % 2 H Nucleated RBC % 0 Triglycerides 140 Cholesterol 124 L LDL Cholesterol, Calc 80 HDL Cholesterol 16 L Cholesterol/HDL Ratio 7.8 H Quality Measures Quality Measures VTE prophylaxis Advance care planning discussed with:: patient Assessment & Plan Assessment Current Active Medications: Generic Name Dose Route Start Last Admin Trade Name Freq PRN Reason Stop Dose Admin Ascorbic Acid 500 mg 05/04/25 09:00 05/06/25 08:50 Ascorbic Acid 250 Mg Tablet PO 06/03/25 08:59 Not Given BID ABRAHAM Bisacodyl 10 mg 05/05/25 12:27 Bisacodyl 10 Mg Supp GA 06/04/25 12:26 QDAY PRN CONSTIPATION Protocol Docusate Sodium 100 mg 05/04/25 09:00 05/05/25 08:33 Docusate Sod 100 Mg Capsule PO 06/03/25 08:59 100 mg On Hold: 05/05/25 10:44 BID ABRAHAM Administration Protocol Enoxaparin Sodium 40 mg 04/30/25 09:00 05/06/25 08:47 Enoxaparin Sod Inj 40 Mg/0.4 Ml Syringe SC 05/14/25 08:59 40 mg QDAY ABRAHAM Administration Hydralazine HCl 10 mg 05/05/25 14:53 Hydralazine Inj 20 Mg/Ml Vial IVP 06/04/25 12:59 Q6HR PRN SBP >170 Hydromorphone HCl 1 mg 05/04/25 08:25 05/06/25 05:23 Hydromorphone Inj 2 Mg/Ml Vial IVP 05/09/25 08:24 1 mg Q3HR PRN Administration PAIN SCALE 7-10 (Severe Cefoxitin Sodium 2 gm/ Sodium 50 mls @ 100 mls/hr 05/01/25 18:00 05/06/25 05:58 Chloride IV 05/08/25 17:59 Infused Q6HR ABRAHAM Infusion Doxycycline Hyclate 100 mg/ 100 mls @ 100 mls/hr 05/03/25 21:00 05/06/25 08:47 Sodium Chloride IV 05/10/25 20:59 100 mls/hr BID ABRAHAM Administration Potassium Acetate 40 meq/ 2,042 mls @ 40 mls/hr 05/05/25 13:00 05/05/25 21:47 Magnesium Sulfate 1 gm/ IV 05/07/25 16:02 75 mls/hr Calcium Gluconate 1 gm/ QDAY@1300 ONE Infusion Multivitamins/Minerals 10 ml/ Amino Acids Ondansetron HCl 4 mg 05/01/25 16:32 05/05/25 04:14 Ondansetron Inj 2 Mg/Ml Inj 2 Ml IVP 05/31/25 16:31 4 mg Q6HR PRN Administration NAUSEA OR VOMITING Protocol Pharmacy Consult 1 each 05/05/25 10:29 Pha To Consult Parenteral Nutr 1 Each Each XX 06/04/25 10:28 PRN PRN CONSULT Zinc Sulfate 220 mg 05/04/25 09:00 05/06/25 08:49 Zinc Sulfate 220 Mg Capsule PO 06/03/25 08:59 Not Given QDAY ABRAHAM
[2025-05-06 09:28] LABS: Alanine Aminotransferase 45 U/L (10-49); Albumin, Serum 3.4 gm/dL (3.4-4.8); Albumin/Globulin Ratio 1.4 (1.2-2.2); Alkaline Phosphatase 136 U/L (46-116); Anion Gap 7 (7-16); Aspartate Amino Transferase < 8 U/L (0-34); BUN/Creatinine Ratio 31 Ratio (12-20); Bilirubin,Total 1.4 mg/dL (0.3-1.2); Blood Urea Nitrogen 31 mg/dL (9-23); Calcium 8.6 mg/dL (8.3-10.6); Calcium (Corrected) 9.1 mg/dL (8.5-10.1); Carbon Dioxide 29.5 mMol/L (20.0-31.0); Chloride 111 mMol/L (98-107); Creatinine (Component) 1.0 mg/dL (0.6-1.3); Estimated Creatinine Clearance 58.3 mL/min (>60); Globulin 2.4 gm/dL (2.3-3.5); Glucose 135 mg/dL (74-106); Osmolality,Calculated 300 (275-295); Potassium 3.9 mMol/L (3.4-5.1); Sodium 147 mMol/L (136-145); Total Protein 5.8 gm/dL (5.7-8.2); eGFR > 60 See Note
--- NOTE | 2025-05-06 10:02 | ESPR_ITS ---
<Statement entered by Madhuri Grider MD - 05/06/25 16:29> Patient is seen at bedside. Continues to be in significant amount of abdominal pain. Repeat CT of the abdomen pelvis shows significant bilateral pneumonia and some fluid collection at the gallbladder fossa and small bowel obstruction pattern. However this morning patient endorses to passing gas, patient's abdomen is soft but very tender. White count slightly up trended to 15.8 patient is started on IV antibiotics. Patient still has not been meeting nutritional goal therefore PPN is started we will continue clear liquid diet as per surgery's recommendation. Patient is encouraged to mobilize as tolerated. will continue pain control and await further recommendations from surgery. Patient was seen and examined by me personally. I have directly supervised and reviewed documentation by the team resident and agree with its findings. ------- Plan of care was discussed with the attending, Dr. Tereso Grider, PGY-2 Documentation for date of: 05/06/25 Subjective Subjective Interval history: pt endorses passing gas started on clears, tolerating pt continues on PPN, will attemt to wean tomorrow on apap po and dilaudid prn q3. Exam Vital Signs Temp Pulse Resp BP Pulse Ox O2 Del Method O2 Flow Rate 97.7 F 68 18 158/81 H 97 Nasal Cannula 4 05/06/25 08:00 05/06/25 08:00 05/06/25 08:00 05/06/25 08:00 05/06/25 08:00 05/06/25 08:00 05/06/25 08:00 Narrative Exam GENERAL: no acute distress, AAO x3, laying in bed, HEENT: Head AT/ NC. Mucous membranes dry. PERRL. NECK: Supple, no lymphadenopathy, no carotid bruits. CARDIOVASCULAR: RRR. Normal S1/S2, No m/r/g. No pitting edema of bilateral LEs. RESPIRATORY: some expiratory wheezing, GASTROINTESTINAL: Abdomen soft, with midline incision with gauze and tape, binder in place, incision not visualized, dry and intact. MUSCULOSKELETAL:? No cyanosis or edema, no visible joint swelling. arthritic hand joints NEUROLOGICAL: CN II-XII grossly intact. No focal deficits. Sensation intact, symmetric. tremulous PSYCHIATRIC: Awake and alert, not agitated, normal mood and affect. SKIN: No obvious rashes, no jaundice, normal turgor. Objective Labs 05/06/25 08:29 05/06/25 08:29 Labs: Laboratory Results - last 24 hr 05/05/25 05/06/25 04:37 08:29 WBC 15.8 H RBC 3.46 L Hgb 10.9 L Hct 32.3 L MCV 93 MCH 31.5 MCHC 33.7 RDW Std Deviation 50.4 H Plt Count 224 Neut % (Auto) 87 H Lymph % (Auto) 6 L [place] % (Auto) 5 Eos % (Auto) 0 Baso % (Auto) 0 Neut # (Auto) 13.8 H Lymph # (Auto) 0.9 L [place] # (Auto) 0.7 Eos # (Auto) 0.0 Baso # (Auto) 0.1 Immature Gran # (Auto) 0.29 H Absolute Nucleated RBC 0.00 Immature Gran % 2 H Nucleated RBC % 0 Sodium 147 H Potassium 3.9 Chloride 111 H Carbon Dioxide 29.5 Anion Gap 7 BUN 31 H Creatinine 1.0 Estim Creat Clear Calc 58.3 L eGFR > 60 BUN/Creatinine Ratio 31 H Glucose 135 H Calculated Osmolality 300 H Calcium 8.6 Corrected Calcium 9.1 Total Bilirubin 1.4 H D AST < 8 ALT 45 Alkaline Phosphatase 136 H Total Protein 5.8 Albumin 3.4 Globulin 2.4 Albumin/Globulin Ratio 1.4 Triglycerides 140 Cholesterol 124 L LDL Cholesterol, Calc 80 HDL Cholesterol 16 L Cholesterol/HDL Ratio 7.8 H Quality Measures Quality Measures VTE prophylaxis Advance care planning discussed with:: patient Assessment & Plan Assessment Current Active Medications: Generic Name Dose Route Start Last Admin Trade Name Freq PRN Reason Stop Dose Admin Ascorbic Acid 500 mg 05/04/25 09:00 05/06/25 08:50 Ascorbic Acid 250 Mg Tablet PO 06/03/25 08:59 Not Given BID ABRAHAM Bisacodyl 10 mg 05/05/25 12:27 Bisacodyl 10 Mg Supp [place] 06/04/25 12:26 QDAY PRN CONSTIPATION Protocol Docusate Sodium 100 mg 05/04/25 09:00 05/05/25 08:33 Docusate Sod 100 Mg Capsule PO 06/03/25 08:59 100 mg On Hold: 05/05/25 10:44 BID ABRAHAM Administration Protocol Enoxaparin Sodium 40 mg 04/30/25 09:00 05/06/25 08:47 Enoxaparin Sod Inj 40 Mg/0.4 Ml Syringe SC 05/14/25 08:59 40 mg QDAY ABRAHAM Administration Hydralazine HCl 10 mg 05/05/25 14:53 Hydralazine Inj 20 Mg/Ml Vial IVP 06/04/25 12:59 Q6HR PRN SBP >170 Hydromorphone HCl 1 mg 05/04/25 08:25 05/06/25 05:23 Hydromorphone Inj 2 Mg/Ml Vial IVP 05/09/25 08:24 1 mg Q3HR PRN Administration PAIN SCALE 7-10 (Severe Cefoxitin Sodium 2 gm/ Sodium 50 mls @ 100 mls/hr 05/01/25 18:00 05/06/25 05:58 Chloride IV 05/08/25 17:59 Infused Q6HR ABRAHAM Infusion Doxycycline Hyclate 100 mg/ 100 mls @ 100 mls/hr 05/03/25 21:00 05/06/25 08:47 Sodium Chloride IV 05/10/25 20:59 100 mls/hr BID ABRAHAM Administration Potassium Acetate 40 meq/ 2,042 mls @ 40 mls/hr 05/05/25 13:00 05/05/25 21:47 Magnesium Sulfate 1 gm/ IV 05/07/25 16:02 75 mls/hr Calcium Gluconate 1 gm/ QDAY@1300 ONE Infusion Multivitamins/Minerals 10 ml/ Amino Acids Ondansetron HCl 4 mg 05/01/25 16:32 05/05/25 04:14 Ondansetron Inj 2 Mg/Ml Inj 2 Ml IVP 05/31/25 16:31 4 mg Q6HR PRN Administration NAUSEA OR VOMITING Protocol Pharmacy Consult 1 each 05/05/25 10:29 Pha To Consult Parenteral Nutr 1 Each Each XX 06/04/25 10:28 PRN PRN CONSULT Zinc Sulfate 220 mg 05/04/25 09:00 05/06/25 08:49 Zinc Sulfate 220 Mg Capsule PO 06/03/25 08:59 Not Given QDAY ABRAHAM Plan Summary: Mr. Danielle is a 70 year old gentleman with hx of BPH with urinary retention, HLD, with no hx of prior abdominal surgeries who was found to have dilated loops of small bowel on CTAP, admitted for SBO, NPO with NG tube in place to LIS. s/p ex lap and appendectomy and cholecystectomy. not yet passing gas, nor has he had bm. repeat imaging with SBO pattern. continued on ppn, started on clear liquid diet. SBO s/p ex lap appendectomy cholecystectomy hyperbillirubenima Transaminitis atelectesis Ddx sbo vs mesinteric ischemia vs pancreatitis vs malignancy CTAP Tiny nonobstructing right renal calculi fluid distended small bowel loops, consider early small bowel obstruction GB US: No evidence for cholelithiasis, acute cholecystitis or biliary ductal obstruction. leukoyctosis likely reactive rather than infectious, he endorsed fevers and chills for the past 2 days and minimal appetite - leukocytosis resolving Patient underwent ex lap, Partial small bowel resection with anastomosis, cholecystectomy and appendectomy on 05/01/2025 during which she was found to have very dilated loops of small bowel; proximal ileum with segmental area of infarction and perforation; gangrenous and perforated appendix; distended and gangrenous gallbladder Lactic acid wnl, so suspicion of mesinteric ischemia is less likely. Failed upper gi series with gastrogaffin. Patient denies passing gas or bowel movements post op imaging without resolution of sbo Plan: Cefoxitin 2 gm q6hr (05/01- Doxycycline 05/03- Encourage ambulation PPN intiated, 600kcal, plan to wean tomorow Clear liquid diet as tolerated Monitoring for flatus and bowel movement surgery consulted, appreciate recs, post op encourage use of IS Zinc 220 Vit C 500 BID Stage II hypertension Plan: Continue to monitor amlodipine 5 qd GIOVANA - resolved Baseline Cr 0.8, 1.3-->1.1 likely prerenal 2/2 diminished po intake BPH with urinary retention follows with [facility] home tamsulosin 0.4 qd , holding given npo pt reports that he is able to void in small increments Plan bladder scan prn and straight cath as needed >300cc voiding appropriately HLD hold home atorvastatin 40 qhs, patient trying oral diet today Tobacco Use Disorder BL Pulmonary Nodules - stable CT chest: Bilateral pulmonary nodules dating to CT chest March 29, 2023- Stable bilateral subcentimeter pulmonary nodules Chest x-ray on 05/03/2025 showed mild hypoventilation noted with interval development of mild to moderate bibasilar opacities since prior exam, which could represent a combination of aspiration/pneumonia and dependent atelectasis. Plan -continue outpatient f/u with low dose cts -discussed smoking cessation, pt not interested, will provide info on cessation if interested. Mild Normocytic Anemia hgb stable Appears to be a chronic issue Plan: No direct intervention at this time Dispo: Medsurg, pt had gas, no bm to date, on IV abx, and iv pain mgmt Diet: clear diet Bowel Reg: n/a high grade obstruction VTE ppx: SCD , lovenox 40 sc qd GI ppx: not indicated Code status: FULL Plan discussed with my attending Dr. Rider and my senior resident Dr. Ralf Morris MD PGY1 Attending Provider Attestation/Addendum I, Cynthia Rider, DO, attest that I was physically present for the espino portions of the service and evaluated the patient with the resident and I reviewed and discussed the case with the resident and agree with the resident's findings and plans of care as documented above Patient seen and evaluated this AM. Patient continues to have pain, but is not ambulating with PT. Abdomen is distended, but soft, tender to palpation. Dressing is clean, dry and intact. Patient has been afebrile otherwise. CT showed small air fluid collection in gallbladder fossa, but is an expected postsurgical change per surgeon. LFTs appear improved. Amlodipine added for better BP control. Patient started back on clear liquid diet. He remains on PPN due to poor PO intake. Encouraged ambulation and use of IS. Patient endorsed having flatus this AM.
--- NOTE | 2025-05-06 11:50 | PD.SURPROG ---
Documentation for date of: 05/06/25 Subjective Subjective Narrative: Patient is seen and examined. His abdominal pain is improving. He denies nausea or vomiting and he started passing flatus. He had CT scan that shows significant bibasilar pneumonia, small fluid collection of the gallbladder fossa Exam Vital Signs Temp Pulse Resp BP Pulse Ox O2 Del Method O2 Flow Rate 97.7 F 68 18 158/81 H 97 Nasal Cannula 4 05/06/25 08:00 05/06/25 08:00 05/06/25 08:00 05/06/25 08:00 05/06/25 08:00 05/06/25 08:00 05/06/25 08:00 Constitutional Constitutional: no acute distress Routine Abdominal Exam Comments: Abdomen is soft and mildly distended. Incision is clean, dry and intact Assessment & Plan Assessment Additional comments: Postop day #5 status post partial small bowel resection, cholecystectomy and appendectomy. CT scan findings are most likely postoperative rather than abscess. Elevation of WBC is most likely related to his bilateral pneumonia Plan Will start clear liquids. Patient is encouraged to increase ambulation and use incentive spirometer PROCEDURES: Procedures Exploratory laparotomy, partial small bowel resection with anastomosis Cholecystectomy Appendectomy
--- NOTE | 2025-05-06 15:16 | PC.DIETICIAN ---
Dietitian consult:Recommend increase PPN to optimize nutrition, confirmed with Dr. Morris: PPN D5% AA 4.25% @90ml/hr goal rate to provide with 500ml 20% IL 3x/week (TTHS) to provide: 2160ml total vol, 1163total kcal, 92g AA, 108g dextrose, 100gm iv fat emulsion, GIR 1.2 Thank you
[2025-05-06] MEDS: ONDANSETRON INJ 2 MG/ML INJ 2 ML 4 MG IVP ×2 (17:52→23:49)
[2025-05-06] MEDS: hydrALAZINE INJ 20 MG/ML VIAL 10 MG IVP (20:30)
[2025-05-06] MEDS: ASCORBIC ACID 250 MG TABLET 500 MG PO (20:30)
[2025-05-07] VITALS (12 sets, daily range): BP systolic 107–167; BP diastolic 67–87; PULSE 73–87; RESP 15–90; TEMP 36.2–37.2; O2SAT 94–100; BMI 20.5
[2025-05-07] MEDS: INSULIN HUM REGULAR 1 UNIT/0.01 ML (PER UNIT) SC
[2025-05-07] MEDS: CEFOXITIN 2 GM in SODIUM CHLORIDE 0.9% (Popper) 50 ML IV (05:20)
[2025-05-07] MEDS: HYDROmorphone INJ 2 MG/ML VIAL 1 MG IVP ×3 (05:35→18:07)
[2025-05-07 05:53] LABS: Basophils # (Auto) 0.0 Thou/mm3 (0.0-0.2); Basophils % (Auto) 0 % (0-2.5); Eosinophils # (Auto) 0.0 Thou/mm3 (0.0-0.5); Eosinophils % (Auto) 0 % (0-10); Hematocrit 33.7 % (41.0-53.0); Hemoglobin 11.0 g/dL (13.5-16.0); Immature Granulocytes Auto 0.20 Thou/mm3 (0.00-0.00); Lymphocytes # (Auto) 0.7 Thou/mm3 (1.0-4.8); Lymphocytes % (Auto) 4 % (10-50); Mean Corpuscular HGB Conc 32.6 g/dl (31.0-37.0); Mean Corpuscular Hemoglobin 31.1 pg (25.0-35.0); Mean Corpuscular Volume 95 fL (80-100); Monocytes # (Auto) 0.8 Thou/mm3 (0.0-0.8); Monocytes % (Auto) 5 % (0-12); Neutrophils # (Auto) 14.5 Thou/mm3 (1.8-7.7); Neutrophils % (Auto) 89 % (37-80); Nucleated Red Blood Cell # 0.00 Thou/mm3 (0.00-0.00); Nucleated Red Blood Cell % 0 /100 WBC (0); Platelet Count 262 Thou/mm3 (140-440); RDW Standard Deviation 52.6 fL (35.1-43.9); Red Blood Count 3.54 Miln/mm3 (4.50-5.90); White Blood Count 16.3 Thou/mm3 (3.8-10.6)
[2025-05-07] MEDS: ONDANSETRON INJ 2 MG/ML INJ 2 ML 4 MG IVP ×2 (06:03→10:22)
[2025-05-07 06:13] LABS: Alanine Aminotransferase 42 U/L (10-49); Albumin, Serum 3.5 gm/dL (3.4-4.8); Albumin/Globulin Ratio 1.3 (1.2-2.2); Alkaline Phosphatase 141 U/L (46-116); Anion Gap 9 (7-16); Aspartate Amino Transferase 27 U/L (0-34); BUN/Creatinine Ratio 39 Ratio (12-20); Bilirubin,Total 1.2 mg/dL (0.3-1.2); Blood Urea Nitrogen 35 mg/dL (9-23); Calcium 8.8 mg/dL (8.3-10.6); Calcium (Corrected) 9.2 mg/dL (8.5-10.1); Carbon Dioxide 24.4 mMol/L (20.0-31.0); Chloride 113 mMol/L (98-107); Creatinine (Component) 0.9 mg/dL (0.6-1.3); Estimated Creatinine Clearance 65.7 mL/min (>60); Globulin 2.6 gm/dL (2.3-3.5); Glucose 132 mg/dL (74-106); Osmolality,Calculated 300 (275-295); Potassium 4.0 mMol/L (3.4-5.1); Sodium 146 mMol/L (136-145); Total Protein 6.1 gm/dL (5.7-8.2); eGFR > 60 See Note
--- NOTE | 2025-05-07 08:14 | ESPR_ITS ---
<Statement entered by Madhuri Grider MD - 05/07/25 16:20> Pt is seen at bedside, pain is well controlled. Pt has has 2 bowel movements and continues to pass flatus. Pt has increasing nausea and had 2 episodes of emesis. Will continue PPN as pt is unable to tolerate oral diet. Pt is encouraged to increase mobility and get out of bed. Patient was seen and examined by me personally. I have directly supervised and reviewed documentation by the team resident and agree with its findings. ------- Plan of care was discussed with the attending, Dr. Carola Grider, PGY-2 Documentation for date of: 05/07/25 Subjective Subjective Interval history: overnight patient had emesis increased frequency of zofran on full liquid diet, will advance as tolerated incision in clean and intact, wbc is uptrending, so change abx from cefoxin to zosyn, will consider reimaging of RUQ given c/f gb fossa fluid collection. Exam Vital Signs Temp Pulse Resp BP Pulse Ox O2 Del Method O2 Flow Rate 98.9 F 75 20 148/77 H 100 Nasal Cannula 2 05/07/25 07:46 05/07/25 07:46 05/07/25 07:46 05/07/25 07:46 05/07/25 07:46 05/07/25 07:46 05/07/25 07:46 Narrative Exam GENERAL: no acute distress, AAO x3, laying in bed, fatigued HEENT: Head AT/ NC. Mucous membranes dry. PERRL. NECK: Supple, no lymphadenopathy, no carotid bruits. CARDIOVASCULAR: RRR. Normal S1/S2, No m/r/g. No pitting edema of bilateral LEs. RESPIRATORY: lungs with diminished work of breathing on 1 L NC, satting 97 GASTROINTESTINAL: Abdomen soft, with midline incision clean and intact with pato, RUQ tenderness, abdominal binder in place MUSCULOSKELETAL:? No cyanosis or edema, no visible joint swelling. arthritic hand joints NEUROLOGICAL: CN II-XII grossly intact. No focal deficits. Sensation intact, symmetric. tremulous PSYCHIATRIC: Awake and alert, not agitated, normal mood and affect. SKIN: No obvious rashes, no jaundice, normal turgor. Objective Labs 05/08/25 05:37 05/08/25 05:37 Labs: Laboratory Results - last 24 hr 05/06/25 05/07/25 08:29 05:00 WBC 15.8 H 16.3 H RBC 3.46 L 3.54 L Hgb 10.9 L 11.0 L Hct 32.3 L 33.7 L MCV 93 95 MCH 31.5 31.1 MCHC 33.7 32.6 RDW Std Deviation 50.4 H 52.6 H Plt Count 224 262 D Neut % (Auto) 87 H 89 H Lymph % (Auto) 6 L 4 L [place] % (Auto) 5 5 Eos % (Auto) 0 0 Baso % (Auto) 0 0 Neut # (Auto) 13.8 H 14.5 H Lymph # (Auto) 0.9 L 0.7 L [place] # (Auto) 0.7 0.8 Eos # (Auto) 0.0 0.0 Baso # (Auto) 0.1 0.0 Immature Gran # (Auto) 0.29 H 0.20 H Absolute Nucleated RBC 0.00 0.00 Immature Gran % 2 H 1 H Nucleated RBC % 0 0 Sodium 147 H 146 H Potassium 3.9 4.0 Chloride 111 H 113 H Carbon Dioxide 29.5 24.4 Anion Gap 7 9 BUN 31 H 35 H Creatinine 1.0 0.9 Estim Creat Clear Calc 58.3 L 65.7 eGFR > 60 > 60 BUN/Creatinine Ratio 31 H 39 H Glucose 135 H 132 H Calculated Osmolality 300 H 300 H Calcium 8.6 8.8 Corrected Calcium 9.1 9.2 Total Bilirubin 1.4 H D 1.2 AST < 8 27 ALT 45 42 Alkaline Phosphatase 136 H 141 H Total Protein 5.8 6.1 Albumin 3.4 3.5 Globulin 2.4 2.6 Albumin/Globulin Ratio 1.4 1.3 Quality Measures Quality Measures VTE prophylaxis Advance care planning discussed with:: patient and child Assessment & Plan Assessment Current Active Medications: Generic Name Dose Route Start Last Admin Trade Name Freq PRN Reason Stop Dose Admin Acetaminophen 650 mg 05/06/25 12:19 Acetaminophen 325 Mg Tablet PO 06/05/25 12:18 Q6HR PRN PAIN 1-6 (mild-mod Amlodipine Besylate 5 mg 05/06/25 12:30 05/06/25 13:44 Amlodipine Besylate 5 Mg Tablet PO 06/05/25 12:29 5 mg QDAY ABRAHAM Administration Ascorbic Acid 500 mg 05/04/25 09:00 05/06/25 20:30 Ascorbic Acid 250 Mg Tablet PO 06/03/25 08:59 500 mg BID ABRAHAM Administration Bisacodyl 10 mg 05/05/25 12:27 Bisacodyl 10 Mg Supp ME 06/04/25 12:26 QDAY PRN CONSTIPATION Protocol Docusate Sodium 100 mg 05/04/25 09:00 05/05/25 08:33 Docusate Sod 100 Mg Capsule PO 06/03/25 08:59 100 mg On Hold: 05/05/25 10:44 BID ABRAHAM Administration Protocol Enoxaparin Sodium 40 mg 04/30/25 09:00 05/06/25 08:47 Enoxaparin Sod Inj 40 Mg/0.4 Ml Syringe SC 05/14/25 08:59 40 mg QDAY ABRAHAM Administration Hydralazine HCl 10 mg 05/05/25 14:53 05/06/25 20:30 Hydralazine Inj 20 Mg/Ml Vial IVP 06/04/25 12:59 10 mg Q6HR PRN Administration SBP >170 Hydromorphone HCl 1 mg 05/04/25 08:25 05/07/25 05:35 Hydromorphone Inj 2 Mg/Ml Vial IVP 05/09/25 08:24 1 mg Q3HR PRN Administration PAIN SCALE 7-10 (Severe Cefoxitin Sodium 2 gm/ Sodium 50 mls @ 100 mls/hr 05/01/25 18:00 05/07/25 05:20 Chloride IV 05/08/25 17:59 100 mls/hr Q6HR ABRAHAM Administration Doxycycline Hyclate 100 mg/ 100 mls @ 100 mls/hr 05/03/25 21:00 05/06/25 20:30 Sodium Chloride IV 05/10/25 20:59 100 mls/hr BID ABRAHAM Administration Fat Emulsion Intravenous 500 mls @ 32 mls/hr 05/07/25 18:00 Intralipid 20% Iv IV 06/06/25 17:59 TUTHSA@1800 [facility] Potassium Acetate 40 meq/ 2,032 mls @ 90 mls/hr 05/06/25 18:00 05/06/25 17:51 Magnesium Sulfate 1 gm/ IV 05/07/25 16:35 90 mls/hr Multivitamins/Minerals 10 ml/ QDAY@1800 ABRAHAM Administration Amino Acids Insulin Human Regular 0 unit 05/06/25 18:00 05/07/25 00:00 Insulin Hum Regular 1 Unit/0.01 Ml (Per Unit) SC 06/05/25 17:59 2 unit Q6HR PRN Administration GLYCEMIC MANAGEMENT ON PN Protocol Ondansetron HCl 4 mg 05/01/25 16:32 05/07/25 06:03 Ondansetron Inj 2 Mg/Ml Inj 2 Ml IVP 05/31/25 16:31 4 mg Q6HR PRN Administration NAUSEA OR VOMITING Protocol Pharmacy Consult 1 each 05/05/25 10:29 Pha To Consult Parenteral Nutr 1 Each Each XX 06/04/25 10:28 PRN PRN CONSULT Zinc Sulfate 220 mg 05/04/25 09:00 05/06/25 08:49 Zinc Sulfate 220 Mg Capsule PO 06/03/25 08:59 Not Given QDAY ABRAHAM Plan Mr. Danielle is a 70 year old gentleman with hx of BPH with urinary retention, HLD, with no hx of prior abdominal surgeries who was found to have dilated loops of small bowel on CTAP, admitted for SBO, NPO with NG tube in place to LIS. s/p ex lap and appendectomy and cholecystectomy.endorsing passing gas and having bm. continued on ppn, tolerating full liquids, will wean ppn as tolerated. SBO s/p ex lap - resolving appendectomy cholecystectomy hyperbillirubenima Transaminitis atelectesis and BL pneumonia Leukocytosis persists Ddx sbo vs mesinteric ischemia vs pancreatitis vs malignancy CTAP Tiny nonobstructing right renal calculi fluid distended small bowel loops, consider early small bowel obstruction GB US: No evidence for cholelithiasis, acute cholecystitis or biliary ductal obstruction. leukoyctosis likely reactive rather than infectious, he endorsed fevers and chills for the past 2 days and minimal appetite - leukocytosis resolving Patient underwent ex lap, Partial small bowel resection with anastomosis, cholecystectomy and appendectomy on 05/01/2025 during which she was found to have very dilated loops of small bowel; proximal ileum with segmental area of infarction and perforation; gangrenous and perforated appendix; distended and gangrenous gallbladder Lactic acid wnl, so suspicion of mesinteric ischemia is less likely. Failed upper gi series with gastrogaffin. post exlap, on ppn, tolerating clears and fulls, but not yet ready to wean the ppn given not meeting caloric needs with PO intake leukocytosis persists, changed abx to broader coverage with zosyn on 05/07, will follow up labs tomorrow. Plan: Cefoxitin 2 gm q6hr (05/01-05/07) Zosyn 3.375 gm q6hr (05/07- Doxycycline 05/03- zofran q4hr metaclopromide 10 mg IV qd Encourage ambulation PPN, will wean as tolerated full liquid diet will advance as tolerated Monitoring for flatus and bowel movement surgery consulted, appreciate recs, post op dietitian consulted, appreciate recs encourage use of IS Zinc 220 qd Vit C 500 BID multivitamin liquid 10 ml qd Hypertension Plan: Continue to monitor started amlodipine 5 qd GIOVANA - resolved Baseline Cr 0.8, 1.3-->1.1 likely prerenal 2/2 diminished po intake BPH with urinary retention follows with [facility] home tamsulosin 0.4 qd , holding given npo pt reports that he is able to void in small increments Plan bladder scan prn and straight cath as needed >300cc voiding appropriately HLD hold home atorvastatin 40 qhs, patient trying oral diet today Tobacco Use Disorder BL Pulmonary Nodules - stable CT chest: Bilateral pulmonary nodules dating to CT chest March 29, 2023- Stable bilateral subcentimeter pulmonary nodules Chest x-ray on 05/03/2025 showed mild hypoventilation noted with interval development of mild to moderate bibasilar opacities since prior exam, which could represent a combination of aspiration/pneumonia and dependent atelectasis. Plan -continue outpatient f/u with low dose cts -discussed smoking cessation, pt not interested, will provide info on cessation if interested. Mild Normocytic Anemia hgb stable Appears to be a chronic issue Plan: No direct intervention at this time Dispo: Medsurg, pt had gas, no bm to date, on IV abx, and iv pain mgmt Diet: clear diet Bowel Reg: n/a high grade obstruction VTE ppx: SCD , lovenox 40 sc qd GI ppx: not indicated Code status: FULL Plan discussed with my attending Dr. Rider and my senior resident Dr. Ralf Morris MD PGY1 Attending Provider Attestation/Addendum I reviewed labs, imaging, EKG, home medications and prior available records. Face to face evaluation was performed by me. I have personally examined the patient and discussed assessment and plan with the IM team. I reviewed the resident note and agree with the plan with exceptions as below. Small bowel obstruction Leukocytosis Status post exploratory laparotomy on 05/01 and partial bowel resection Status post appendectomy and cholecystectomy Advanced diet to full liquid diet WBC is uptrending Broaden antibiotics to IV Zosyn General Surgery is following
[2025-05-07] MEDS: ENOXAPARIN SOD INJ 40 MG/0.4 ML SYRINGE SC (08:34)
[2025-05-07] MEDS: DOXYCYCLINE INJ 100 MG in SODIUM CHLORIDE 0.9% (POP) 100 ML IV (08:34)
--- NOTE | 2025-05-07 10:20 | PC.NURSE ---
DR. CHOWDHURY AT BEDSIDE ROUNDING ON PT.
--- NOTE | 2025-05-07 10:22 | PD.SURPROG ---
Documentation for date of: 05/07/25 Subjective Subjective Narrative: Patient was seen and examined. His abdominal pain is improving. He had multiple episodes of emesis and continues to have bowel movements Exam Vital Signs Temp Pulse Resp BP Pulse Ox O2 Del Method O2 Flow Rate 98.9 F 75 20 148/77 H 100 Nasal Cannula 2 05/07/25 07:46 05/07/25 07:46 05/07/25 07:46 05/07/25 07:46 05/07/25 07:46 05/07/25 07:46 05/07/25 07:46 Constitutional Constitutional: no acute distress Routine Abdominal Exam Comments: Abdomen is soft and mildly distended. Incision is clean, dry and intact Assessment & Plan Assessment Additional comments: Postop day #6 status post partial small bowel resection, cholecystectomy and appendectomy. Plan Will start patient on Reglan and continue on clear liquids with Ensure supplements PROCEDURES: Procedures Exploratory laparotomy, partial small bowel resection with anastomosis Cholecystectomy Appendectomy
[2025-05-07] MEDS: ZINC SULFATE 220 MG CAPSULE PO (10:26)
[2025-05-07] MEDS: ASCORBIC ACID 250 MG TABLET 500 MG PO (10:26)
[2025-05-07] MEDS: PIPER/TAZO INJ 4.5 GM in SODIUM CHLORIDE 0.9% (POP) 100 ML IV (12:35)
[2025-05-07] MEDS: METOCLOPRAMIDE INJ 5 MG/ML VIAL 2 ML 10 MG IVP ×3 (12:35→23:23)
[2025-05-07] MEDS: MULTIVITAMIN IV (16:50)
[2025-05-07] MEDS: D5W IV (16:50)
[2025-05-07] MEDS: AMINO ACIDS IV (16:50)
--- NOTE | 2025-05-07 17:35 | PC.NURSE ---
HEAD SCHOOL CUSTODIAN CALLED D/T ABDOMEN DISTENSION, SURGICAL INCISION SANGUINEOUS PURULENT DRAINAGE, AND N/V.
--- NOTE | 2025-05-07 17:55 | XR_ITS ---
Examination: Abdomen AP single view Technique: AP portable supine abdomen, single view Exam date and time: May 07, 2025, 1809 hours, comparison May 05, 2025 INDICATIONS: Abdominal pain postop. FINDINGS: Moderately air distended stomach. Prominently air distended small bowel loops Surgical pato right of midline No free air Prominent osteopenia IMPRESSION: Moderately air distended stomach Prominently air distended small bowel loops, clinical correlation advised
--- NOTE | 2025-05-07 18:18 | EVENTNT_ITS ---
<Statement entered by Heber Carrillo MD - 05/08/25 07:20> Patient seen and examined at bedside. I discussed and supervised with the internet marketing assistant physician who took care of this patient. I personally saw and examined the patient. I agree with most of the assessment and plan. Plan of care discussed with attending Dr. Garcia. Heber Carrillo MD PGY-2 Documentation for date of: 05/07/25 Event Note Event Note: Rapid reponse called at 17:53, 05/07/2025 for abdominal pain and N/V. Vitals were 149/73. MAP 98, SpO2 94, HR 71. Upon examination, patient reported pain in left upper abdomen and at the base of incision site. Vomit was yellow in color. The incision site exhibited dirty looking sanguineous drainage at the base of incision. A 16 Fr NG tube was attempted but met resistance. Subsequently a OG tube was placed. KUB was ordered. CBC, CMP, lactate was ordered. General Surgery, Dr. Weeks was notified. Assessment and plan discussed with my attending physician Dr. Garcia and Dr. Carrillo (PGY-2) Dr. Gonzalez (PGY-1) - Internal medicine resident
[2025-05-07 18:27] LABS: Lactate (Lactic Acid) 1.8 mMol/L (0.4-2.0)
[2025-05-07 18:29] LABS: Basophils # (Auto) 0.0 Thou/mm3 (0.0-0.2); Basophils % (Auto) 0 % (0-2.5); Eosinophils # (Auto) 0.0 Thou/mm3 (0.0-0.5); Eosinophils % (Auto) 0 % (0-10); Hematocrit 33.4 % (41.0-53.0); Hemoglobin 11.1 g/dL (13.5-16.0); Immature Granulocytes Auto 0.20 Thou/mm3 (0.00-0.00); Lymphocytes # (Auto) 1.2 Thou/mm3 (1.0-4.8); Lymphocytes % (Auto) 8 % (10-50); Mean Corpuscular HGB Conc 33.2 g/dl (31.0-37.0); Mean Corpuscular Hemoglobin 31.9 pg (25.0-35.0); Mean Corpuscular Volume 96 fL (80-100); Monocytes # (Auto) 0.8 Thou/mm3 (0.0-0.8); Monocytes % (Auto) 5 % (0-12); Neutrophils # (Auto) 13.4 Thou/mm3 (1.8-7.7); Neutrophils % (Auto) 85 % (37-80); Nucleated Red Blood Cell # 0.00 Thou/mm3 (0.00-0.00); Nucleated Red Blood Cell % 0 /100 WBC (0); Platelet Count 297 Thou/mm3 (140-440); RDW Standard Deviation 53.3 fL (35.1-43.9); Red Blood Count 3.48 Miln/mm3 (4.50-5.90); White Blood Count 15.6 Thou/mm3 (3.8-10.6)
[2025-05-07] MEDS: FAT EMULSIONS 20% IV 500 ML 32 ML IV (18:43)
[2025-05-07 18:49] LABS: Alanine Aminotransferase 51 U/L (10-49); Albumin, Serum 3.5 gm/dL (3.4-4.8); Albumin/Globulin Ratio 1.3 (1.2-2.2); Alkaline Phosphatase 152 U/L (46-116); Anion Gap 12 (7-16); Aspartate Amino Transferase 22 U/L (0-34); BUN/Creatinine Ratio 35 Ratio (12-20); Bilirubin,Total 1.3 mg/dL (0.3-1.2); Blood Urea Nitrogen 38 mg/dL (9-23); Calcium 8.6 mg/dL (8.3-10.6); Calcium (Corrected) 9.0 mg/dL (8.5-10.1); Carbon Dioxide 22.4 mMol/L (20.0-31.0); Chloride 113 mMol/L (98-107); Creatinine (Component) 1.1 mg/dL (0.6-1.3); Estimated Creatinine Clearance 53.8 mL/min (>60); Globulin 2.7 gm/dL (2.3-3.5); Glucose 146 mg/dL (74-106); Osmolality,Calculated 304 (275-295); Potassium 3.6 mMol/L (3.4-5.1); Sodium 147 mMol/L (136-145); Total Protein 6.2 gm/dL (5.7-8.2); eGFR > 60 See Note
--- NOTE | 2025-05-07 19:30 | PC.NURSE ---
seen and examined by Dr. Weeks. Family members x2 at bedside. Incision wound assessed by Dr. Weeks w/ small amount of bleeding to lower abdomen incision- w/ orders made and carried out.
--- NOTE | 2025-05-07 19:32 | XR_ITS ---
EXAMINATION: AP chest single view TECHNIQUE: AP portable upright chest single view Date and time: May 07, 2025, 1939 hours, comparison May 03, 2025 INDICATIONS: Post orogastric tube placement FINDINGS: Orogastric tube in the stomach satisfactory position Air distended small bowel loops Mild opacity left base consistent with pneumonia Normal heart size IMPRESSION: Orogastric tube in the stomach satisfactory position
--- NOTE | 2025-05-07 19:38 | PC.NURSE ---
transferred pt from room 373 to room 367 for closer observation, pt has orogastric tube and was vomiting during day shift.
[2025-05-07] MEDS: SODIUM CHLORIDE 0.45 % 1,000 ML 25 ML IV (23:15)
[2025-05-08] VITALS (12 sets, daily range): BP systolic 119–147; BP diastolic 62–80; PULSE 76–97; RESP 13–23; TEMP 35.8–36.6; O2SAT 96–97; BMI 20.5
[2025-05-08] MEDS: HYDROmorphone INJ 2 MG/ML VIAL 1 MG IVP ×3 (00:26→17:45)
[2025-05-08] MEDS: DOXYCYCLINE INJ 100 MG in SODIUM CHLORIDE 0.9% (POP) 100 ML IV ×2 (00:30→08:50)
[2025-05-08] MEDS: PIPER/TAZO 3.375 GM PREMIX 3.375 GM/50 ML BAG IV ×4 (00:34→21:24)
[2025-05-08] MEDS: AMINO ACIDS 4.25 %/D5W 1,000 ML 90 ML IV (04:40)
[2025-05-08] MEDS: METOCLOPRAMIDE INJ 5 MG/ML VIAL 2 ML 10 MG IVP ×4 (05:38→23:45)
[2025-05-08] MEDS: INSULIN HUM REGULAR 1 UNIT/0.01 ML (PER UNIT) SC (05:52)
[2025-05-08 06:08] LABS: Basophils # (Auto) 0.1 Thou/mm3 (0.0-0.2); Basophils % (Auto) 1 % (0-2.5); Eosinophils # (Auto) 0.0 Thou/mm3 (0.0-0.5); Eosinophils % (Auto) 0 % (0-10); Hematocrit 33.5 % (41.0-53.0); Hemoglobin 11.3 g/dL (13.5-16.0); Immature Granulocytes Auto 0.14 Thou/mm3 (0.00-0.00); Lymphocytes # (Auto) 0.6 Thou/mm3 (1.0-4.8); Lymphocytes % (Auto) 3 % (10-50); Mean Corpuscular HGB Conc 33.7 g/dl (31.0-37.0); Mean Corpuscular Hemoglobin 32.1 pg (25.0-35.0); Mean Corpuscular Volume 95 fL (80-100); Monocytes # (Auto) 0.5 Thou/mm3 (0.0-0.8); Monocytes % (Auto) 2 % (0-12); Neutrophils # (Auto) 19.9 Thou/mm3 (1.8-7.7); Neutrophils % (Auto) 94 % (37-80); Nucleated Red Blood Cell # 0.00 Thou/mm3 (0.00-0.00); Nucleated Red Blood Cell % 0 /100 WBC (0); Platelet Count 291 Thou/mm3 (140-440); RDW Standard Deviation 53.4 fL (35.1-43.9); Red Blood Count 3.52 Miln/mm3 (4.50-5.90); White Blood Count 21.3 Thou/mm3 (3.8-10.6)
[2025-05-08 06:25] LABS: Alanine Aminotransferase 39 U/L (10-49); Albumin, Serum 3.2 gm/dL (3.4-4.8); Albumin/Globulin Ratio 1.2 (1.2-2.2); Alkaline Phosphatase 126 U/L (46-116); Anion Gap 11 (7-16); Aspartate Amino Transferase 14 U/L (0-34); BUN/Creatinine Ratio 40 Ratio (12-20); Bilirubin,Total 0.9 mg/dL (0.3-1.2); Blood Urea Nitrogen 44 mg/dL (9-23); Calcium 8.3 mg/dL (8.3-10.6); Calcium (Corrected) 8.9 mg/dL (8.5-10.1); Carbon Dioxide 22.0 mMol/L (20.0-31.0); Chloride 111 mMol/L (98-107); Creatinine (Component) 1.1 mg/dL (0.6-1.3); Estimated Creatinine Clearance 53.8 mL/min (>60); Globulin 2.7 gm/dL (2.3-3.5); Glucose 144 mg/dL (74-106); Magnesium 1.9 mg/dL (1.6-2.6); Osmolality,Calculated 301 (275-295); Phosphorous 2.8 mg/dL (2.4-5.1); Potassium 3.4 mMol/L (3.4-5.1); Sodium 144 mMol/L (136-145); Total Protein 5.9 gm/dL (5.7-8.2); eGFR > 60 See Note
--- NOTE | 2025-05-08 08:14 | XR_ITS ---
Examination: CT abdomen with intravenous contrast CT pelvis with intravenous contrast 2-D coronal reconstructions 2-D sagittal reconstructions Date and time of exam: May 08 2025, 0859 hours, comparison May 05, 2025 INDICATIONS: Generalized abdominal pain post recent abdominal surgery . CTDI: vol (mGy) 5.02 DLP: (mGycm) 280 Technique: Multiple axial sections of the abdomen and pelvis have been obtained. 64 slice high-resolution scanner used. 3 mm axial sections have been obtained, post intravenous injection 60 cc Isovue 370 2-D sagittal, coronal reconstructions obtained. Low dose protocols were performed. One or more of the following dose reduction techniques were used; automated exposure control, adjustment of the mA and/or KV according to patient size, use of iterative reconstruction technique. Findings: Pneumonia both bases with minimal pleural fluid Mild fluid subcapsular and around the spleen No visualized liver lesion Orogastric tube in the stomach There remains a small fluid collection with air densities in the gallbladder fossa Severely air and fluid distended small bowel loops Surgical pato midline anterior abdomen Free air is noted anterior pelvis Urinary bladder intact IMPRESSION: Prominently fluid and air distended small bowel loops, clinical correlation advised
--- NOTE | 2025-05-08 08:22 | PD.RESPRO ---
Documentation for date of: 05/08/25 Subjective Subjective Interval history: rapid response called overnight for puralent drainage from inferior aspect of incision per nursing report picc line pending per jayro recs for tpn , pt want to discuss necessity of picc line with family. OG tube in place, draining 1500 cc abdomen remains distended and tense CTAP with no abscess formation, wbc uptrending despite iv abx. Exam Vital Signs Temp Pulse Resp BP Pulse Ox O2 Del Method O2 Flow Rate 96.4 F L 94 22 H 135/78 H 96 Nasal Cannula 2 05/08/25 07:17 05/08/25 07:17 05/08/25 07:17 05/08/25 07:17 05/08/25 07:17 05/08/25 07:17 05/08/25 04:00 Narrative Exam GENERAL: no acute distress, AAO x3, laying in bed, fatigued and irritable HEENT: Head AT/ NC. Mucous membranes dry. PERRL. NECK: Supple, no lymphadenopathy, no carotid bruits. CARDIOVASCULAR: RRR. Normal S1/S2, No m/r/g. No pitting edema of bilateral LEs. RESPIRATORY: lungs with diminished work of breathing on 1 L NC, satting 97 GASTROINTESTINAL: Abdomen soft, with midline incision closed with pato, has some errythema noted along the edges of incision, and some serosanguenous fluid weaping from inferior aspect of wound, no puralence noted. MUSCULOSKELETAL:? No cyanosis or edema, no visible joint swelling. arthritic hand joints NEUROLOGICAL: CN II-XII grossly intact. No focal deficits. Sensation intact, symmetric. tremulous PSYCHIATRIC: Awake and alert, not agitated, normal mood and affect. SKIN: No obvious rashes, no jaundice, normal turgor. Objective Labs 05/08/25 05:37 05/08/25 05:37 Labs: Laboratory Results - last 24 hr 05/07/25 05/08/25 18:20 05:37 WBC 15.6 H 21.3 H D RBC 3.48 L 3.52 L Hgb 11.1 L 11.3 L Hct 33.4 L 33.5 L MCV 96 95 MCH 31.9 32.1 MCHC 33.2 33.7 RDW Std Deviation 53.3 H 53.4 H Plt Count 297 D 291 Neut % (Auto) 85 H 94 H Lymph % (Auto) 8 L 3 L [place] % (Auto) 5 2 Eos % (Auto) 0 0 Baso % (Auto) 0 1 Neut # (Auto) 13.4 H 19.9 H Lymph # (Auto) 1.2 0.6 L [place] # (Auto) 0.8 0.5 Eos # (Auto) 0.0 0.0 Baso # (Auto) 0.0 0.1 Immature Gran # (Auto) 0.20 H 0.14 H Absolute Nucleated RBC 0.00 0.00 Immature Gran % 1 H 1 H Nucleated RBC % 0 0 Sodium 147 H 144 Potassium 3.6 3.4 Chloride 113 H 111 H Carbon Dioxide 22.4 22.0 Anion Gap 12 11 BUN 38 H 44 H Creatinine 1.1 1.1 Estim Creat Clear Calc 53.8 L 53.8 L eGFR > 60 > 60 BUN/Creatinine Ratio 35 H 40 H Glucose 146 H 144 H Calculated Osmolality 304 H 301 H Lactic Acid 1.8 Calcium 8.6 8.3 Corrected Calcium 9.0 8.9 Phosphorus 2.8 Magnesium 1.9 Total Bilirubin 1.3 H 0.9 AST 22 14 ALT 51 H 39 Alkaline Phosphatase 152 H 126 H D Total Protein 6.2 5.9 Albumin 3.5 3.2 L Globulin 2.7 2.7 Albumin/Globulin Ratio 1.3 1.2 Quality Measures Quality Measures VTE prophylaxis Advance care planning discussed with:: patient Assessment & Plan Assessment Current Active Medications: Generic Name Dose Route Start Last Admin Trade Name Freq PRN Reason Stop Dose Admin Acetaminophen 650 mg 05/06/25 12:19 Acetaminophen 325 Mg Tablet PO 06/05/25 12:18 Q6HR PRN PAIN 1-6 (mild-mod Amlodipine Besylate 5 mg 05/06/25 12:30 05/07/25 10:26 Amlodipine Besylate 5 Mg Tablet PO 06/05/25 12:29 5 mg QDAY ABRAHAM Administration Ascorbic Acid 500 mg 05/04/25 09:00 05/07/25 20:24 Ascorbic Acid 250 Mg Tablet PO 06/03/25 08:59 Not Given BID ABRAHAM Bisacodyl 10 mg 05/05/25 12:27 Bisacodyl 10 Mg Supp IN 06/04/25 12:26 QDAY PRN CONSTIPATION Protocol Docusate Sodium 100 mg 05/04/25 09:00 05/05/25 08:33 Docusate Sod 100 Mg Capsule PO 06/03/25 08:59 100 mg On Hold: 05/05/25 10:44 BID ABRAHAM Administration Protocol Enoxaparin Sodium 40 mg 04/30/25 09:00 05/07/25 08:34 Enoxaparin Sod Inj 40 Mg/0.4 Ml Syringe SC 05/14/25 08:59 40 mg QDAY ABRAHAM Administration Hydralazine HCl 10 mg 05/05/25 14:53 05/06/25 20:30 Hydralazine Inj 20 Mg/Ml Vial IVP 06/04/25 12:59 10 mg Q6HR PRN Administration SBP >170 Hydromorphone HCl 1 mg 05/04/25 08:25 05/08/25 00:26 Hydromorphone Inj 2 Mg/Ml Vial IVP 05/09/25 08:24 1 mg Q3HR PRN Administration PAIN SCALE 7-10 (Severe Doxycycline Hyclate 100 mg/ 100 mls @ 100 mls/hr 05/03/25 21:00 05/08/25 00:30 Sodium Chloride IV 05/10/25 20:59 100 mls/hr BID ABRAHAM Administration Fat Emulsion Intravenous 500 mls @ 32 mls/hr 05/07/25 18:00 05/07/25 18:43 Intralipid 20% Iv IV 06/06/25 17:59 32 mls/hr [email or web address]@1800 ABRAHAM Administration Amino Acids 1,000 mls @ 90 mls/hr 05/08/25 04:00 05/08/25 04:40 Clinimix 4.25/5 IV 05/08/25 15:06 90 mls/hr QDAY@1800 ONE Administration Piperacillin/Tazobactam/Dextrose 3.375 gm in 50 mls @ 12.5 mls/hr 05/07/25 22:00 05/08/25 05:37 Zosyn IV 05/14/25 21:59 12.5 mls/hr Q8HR ABRAHAM Administration Protocol Sodium Chloride 1,000 mls @ 25 mls/hr 05/07/25 19:35 05/07/25 23:15 Ns 0.45% IV 06/06/25 19:34 25 mls/hr .Q24H ABRAHAM Administration Insulin Human Regular 0 unit 05/06/25 18:00 05/08/25 05:52 Insulin Hum Regular 1 Unit/0.01 Ml (Per Unit) SC 06/05/25 17:59 1 unit Q6HR PRN Administration GLYCEMIC MANAGEMENT ON PN Protocol Metoclopramide HCl 10 mg 05/07/25 12:00 05/08/25 05:38 Metoclopramide Inj 5 Mg/Ml Vial 2 Ml IVP 06/06/25 11:59 10 mg Q6HR ABRAHAM Administration Protocol Ondansetron HCl 4 mg 05/07/25 09:25 05/07/25 10:22 Ondansetron Inj 2 Mg/Ml Inj 2 Ml IVP 05/31/25 16:31 4 mg Q4HR PRN Administration NAUSEA OR VOMITING Protocol Pharmacy Consult 1 each 05/05/25 10:29 Pha To Consult Parenteral Nutr 1 Each Each XX 06/04/25 10:28 PRN PRN CONSULT Zinc Sulfate 220 mg 05/04/25 09:00 05/07/25 10:26 Zinc Sulfate 220 Mg Capsule PO 06/03/25 08:59 220 mg QDAY ABRAHAM Administration Plan Mr. Danielle is a 70 year old gentleman with hx of BPH with urinary retention, HLD, with no hx of prior abdominal surgeries who was found to have dilated loops of small bowel on CTAP, admitted for SBO, NPO with NG tube in place to LIS. s/p ex lap and appendectomy and cholecystectomy.pt having increased nausea and vomiting, og tube replaced, and strict npo, with plan for picc line and transition from ppn to tpn. SBO s/p ex lap - unresolved s/p appendectomy s/p cholecystectomy atelectesis and BL pneumonia - PNA improving Leukocytosis persists hyperbillirubenima- resolved Transaminitis- resolved Ddx sbo vs mesinteric ischemia vs pancreatitis vs malignancy CTAP Tiny nonobstructing right renal calculi fluid distended small bowel loops, consider early small bowel obstruction GB US: No evidence for cholelithiasis, acute cholecystitis or biliary ductal obstruction. 05/08: CTAP with Prominently fluid and air distended small bowel loops, Hx course: Failed upper gi series with gastrogaffin. post exlap, on ppn, tolerating clears and fulls, but not yet ready to wean the ppn given not meeting caloric needs with PO intake leukocytosis persists, changed abx to broader coverage with zosyn on 05/07, will follow up labs tomorrow. OG tube placed given distention, with 1500 cc out, no abscess formation on repeat imaging, abdomen remains distended, NPO, pending PICC line Plan: Cefoxitin 2 gm q6hr (05/01-05/07) Zosyn 3.375 gm q6hr (05/07- Doxycycline (05/03-05/08) zofran q4hr metaclopromide 10 mg IV qd Encourage ambulation PPN, will transition to TPN, with picc line placement full liquid diet will advance as tolerated Monitoring for flatus and bowel movement surgery consulted, appreciate recs, post op dietitian consulted, appreciate recs encourage use of IS Zinc 220 qd Vit C 500 BID multivitamin liquid 10 ml qd Hypertension Plan: Continue to monitor started amlodipine 5 qd GIOVANA - resolved Baseline Cr 0.8, 1.3-->1.1 likely prerenal 2/2 diminished po intake BPH with urinary retention follows with [facility] home tamsulosin 0.4 qd , holding given npo pt reports that he is able to void in small increments Plan bladder scan prn and straight cath as needed >300cc voiding appropriately HLD hold home atorvastatin 40 qhs, patient trying oral diet today Tobacco Use Disorder BL Pulmonary Nodules - stable CT chest: Bilateral pulmonary nodules dating to CT chest March 29, 2023- Stable bilateral subcentimeter pulmonary nodules Chest x-ray on 05/03/2025 showed mild hypoventilation noted with interval development of mild to moderate bibasilar opacities since prior exam, which could represent a combination of aspiration/pneumonia and dependent atelectasis. Plan -continue outpatient f/u with low dose cts -discussed smoking cessation, pt not interested, will provide info on cessation if interested. Mild Normocytic Anemia hgb stable Appears to be a chronic issue Plan: No direct intervention at this time Dispo: Medsurg, pt had gas, on IV abx, and iv pain mgmt, pending picc line and initiation of tpn. Diet: NPO, on ppn Bowel Reg: n/a high grade obstruction VTE ppx: SCD , lovenox 40 sc qd GI ppx: not indicated Code status: FULL Plan discussed with my attending Dr. Rider and my senior resident Dr. Ralf Morris MD PGY1 Attending Provider Attestation/Addendum I reviewed labs, imaging, EKG, home medications and prior available records. Face to face evaluation was performed by me. I have personally examined the patient and discussed assessment and plan with the IM team. I reviewed the resident note and agree with the plan with exceptions as below. Small bowel obstruction Leukocytosis Status post exploratory laparotomy on 05/01 and partial bowel resection Status post appendectomy and cholecystectomy WBC is uptrending. Abdomen is more distended. Ordered repeat CT scan that showed distended bowel loops Changed diet back to n.p.o. Inserted NG tube. Broaden antibiotics to IV Zosyn PICC line for TPN General Surgery is following
--- NOTE | 2025-05-08 09:02 | PC.NURSE ---
TRANSFER TO CT VIA [facility].
[2025-05-08 09:16] LABS: Lactate (Lactic Acid) 2.1 mMol/L (0.4-2.0)
--- NOTE | 2025-05-08 09:25 | PC.NURSE ---
PATIENT BACK FROM CT BACK IN BED ALERT TO SELF AND PLACE.
[2025-05-08] MEDS: ONDANSETRON INJ 2 MG/ML INJ 2 ML 4 MG IVP ×2 (10:58→15:47)
[2025-05-08] MEDS: SODIUM CHLORIDE 0.45 % 1,000 ML 75 ML IV ×2 (11:19→21:30)
[2025-05-08 12:12] LABS: Reflex Lactate? Y
--- NOTE | 2025-05-08 12:28 | PD.SURPROG ---
Documentation for date of: 05/08/25 Subjective Subjective Narrative: Patient is seen and examined. He had multiple episodes of emesis last night, and OG tube was placed. He continues to have nausea and he is having bowel movements Exam Vital Signs Temp Pulse Resp BP Pulse Ox O2 Del Method O2 Flow Rate 97.7 F 76 23 H 133/65 H 97 Humidified Nasal Cannula 2 05/08/25 11:14 05/08/25 11:14 05/08/25 11:14 05/08/25 11:14 05/08/25 11:14 05/08/25 11:14 05/08/25 11:14 Constitutional Constitutional: no acute distress Routine Abdominal Exam Comments: His abdomen is soft but distended. His incision is clean, dry and intact with minimal serous drainage from the inferior aspect Assessment & Plan Assessment Additional comments: Postop day #7 status post partial small bowel resection, cholecystectomy and appendectomy. Repeat CT scan showed bibasilar pneumonia, air-fluid distended loops of small bowel, no evidence of anastomotic leak at this time Plan Will keep him n.p.o. with PPN. PICC line insertion by IR and will change his nutrition to TPN. Continue IV antibiotics. Use incentive spirometer and encourage increase ambulation PROCEDURES: Procedures Exploratory laparotomy, partial small bowel resection with anastomosis Cholecystectomy Appendectomy
[2025-05-08 13:10] LABS: Lactic Acid, 3 HR 1.1 mMol/L (0.4-2.0)
[2025-05-08 13:49] LABS: INR 1.0 (0.9-1.3); Partial Thromboplastin Time 26.8 Seconds (22.0-36.0); Prothrombin Time 10.9 Seconds (9.0-12.2)
[2025-05-09] VITALS (10 sets, daily range): BP systolic 125–133; BP diastolic 65–74; PULSE 71–84; RESP 16–26; TEMP 36.1–37.1; O2SAT 94–98; BMI 20.5
[2025-05-09] MEDS: PIPER/TAZO 3.375 GM PREMIX 3.375 GM/50 ML BAG IV ×3 (05:29→22:57)
[2025-05-09] MEDS: METOCLOPRAMIDE INJ 5 MG/ML VIAL 2 ML 10 MG IVP ×3 (05:29→17:42)
[2025-05-09 06:33] LABS: Basophils # (Auto) 0.0 Thou/mm3 (0.0-0.2); Basophils % (Auto) 0 % (0-2.5); Eosinophils # (Auto) 0.0 Thou/mm3 (0.0-0.5); Eosinophils % (Auto) 0 % (0-10); Hematocrit 28.8 % (41.0-53.0); Hemoglobin 9.6 g/dL (13.5-16.0); Immature Granulocytes Auto 0.14 Thou/mm3 (0.00-0.00); Lymphocytes # (Auto) 1.0 Thou/mm3 (1.0-4.8); Lymphocytes % (Auto) 6 % (10-50); Mean Corpuscular HGB Conc 33.3 g/dl (31.0-37.0); Mean Corpuscular Hemoglobin 31.9 pg (25.0-35.0); Mean Corpuscular Volume 96 fL (80-100); Monocytes # (Auto) 0.7 Thou/mm3 (0.0-0.8); Monocytes % (Auto) 4 % (0-12); Neutrophils # (Auto) 14.8 Thou/mm3 (1.8-7.7); Neutrophils % (Auto) 89 % (37-80); Nucleated Red Blood Cell # 0.00 Thou/mm3 (0.00-0.00); Nucleated Red Blood Cell % 0 /100 WBC (0); Platelet Count 300 Thou/mm3 (140-440); RDW Standard Deviation 52.9 fL (35.1-43.9); Red Blood Count 3.01 Miln/mm3 (4.50-5.90); White Blood Count 16.7 Thou/mm3 (3.8-10.6)
[2025-05-09 06:57] LABS: Alanine Aminotransferase 33 U/L (10-49); Albumin, Serum 2.8 gm/dL (3.4-4.8); Albumin/Globulin Ratio 1.5 (1.2-2.2); Alkaline Phosphatase 92 U/L (46-116); Anion Gap 10 (7-16); Aspartate Amino Transferase 25 U/L (0-34); BUN/Creatinine Ratio 50 Ratio (12-20); Bilirubin,Total 0.8 mg/dL (0.3-1.2); Blood Urea Nitrogen 50 mg/dL (9-23); Calcium 7.4 mg/dL (8.3-10.6); Calcium (Corrected) 8.4 mg/dL (8.5-10.1); Carbon Dioxide 23.3 mMol/L (20.0-31.0); Chloride 111 mMol/L (98-107); Creatinine (Component) 1.0 mg/dL (0.6-1.3); Estimated Creatinine Clearance 59.1 mL/min (>60); Globulin 1.9 gm/dL (2.3-3.5); Glucose 100 mg/dL (74-106); Magnesium 2.4 mg/dL (1.6-2.6); Osmolality,Calculated 300 (275-295); Phosphorous 3.6 mg/dL (2.4-5.1); Potassium 4.2 mMol/L (3.4-5.1); Sodium 144 mMol/L (136-145); Total Protein 4.7 gm/dL (5.7-8.2); eGFR > 60 See Note
--- NOTE | 2025-05-09 09:38 | ESPR_ITS ---
<Statement entered by Renetta Harden MD - 05/10/25 08:04> Patient was seen and examined by me personally. I have directly supervised and reviewed documentation by the team resident and agree with its findings with any exceptions or additional findings as below. Plan of care was discussed with the attending, Dr. Srivastava. Renetta Harden, PGY-3 Documentation for date of: 05/09/25 Subjective Subjective Interval history: Patient seen and examined at bedside. Surgery team plans to keep n.p.o. with PPN, to continue antibiotics, and to clamp NG tube. Patient has had no episodes of emesis and did have a bowel movement. Discussions are still being had between the patient and his family regarding the PICC line placement. Exam Vital Signs Temp Pulse Resp BP Pulse Ox O2 Del Method O2 Flow Rate 98.3 F 83 18 125/67 95 Nasal Cannula 2 05/09/25 07:20 05/09/25 07:20 05/09/25 07:20 05/09/25 07:20 05/09/25 07:20 05/09/25 07:20 05/09/25 07:20 Narrative Exam General: Awake and in no acute distress. Conversational and non-toxic appearing. Neurologic: GCS 15. Alert and oriented x3, no gross neurological deficit, and patient able to move all 4 extremities. HEENT: OG tube in place, small amount of dark fluid less than 100 mL drained. Normocephalic, atraumatic, mucous membranes moist. Pupils reactive to light. Heart: Regular rate and rhythm, normal S1 and S2, no murmurs. Lungs: Clear to auscultation bilaterally with no wheezing or crackles. Abdomen: Midline surgical incision, no sign of infection. Extremities: No edema. 2+ radial and dorsalis pedis pulses bilaterally. Skin: Warm. Dry. No rash or ecchymoses. Objective Labs 05/09/25 04:35 05/09/25 04:35 Labs: Laboratory Results - last 24 hr 05/08/25 05/08/25 05/08/25 05:37 08:50 12:45 WBC RBC Hgb Hct MCV MCH MCHC RDW Std Deviation Plt Count Neut % (Auto) Lymph % (Auto) [place] % (Auto) Eos % (Auto) Baso % (Auto) Neut # (Auto) Lymph # (Auto) [place] # (Auto) Eos # (Auto) Baso # (Auto) Immature Gran # (Auto) Absolute Nucleated RBC Immature Gran % Nucleated RBC % PT 10.9 INR 1.0 APTT 26.8 Sodium Potassium Chloride Carbon Dioxide Anion Gap BUN Creatinine Estim Creat Clear Calc eGFR BUN/Creatinine Ratio Glucose Calculated Osmolality Lactic Acid 2.1 H 1.1 Calcium Corrected Calcium Phosphorus Magnesium Total Bilirubin AST ALT Alkaline Phosphatase Total Protein Albumin Globulin Albumin/Globulin Ratio 05/09/25 04:35 WBC 16.7 H RBC 3.01 L Hgb 9.6 L Hct 28.8 L MCV 96 MCH 31.9 MCHC 33.3 RDW Std Deviation 52.9 H Plt Count 300 Neut % (Auto) 89 H Lymph % (Auto) 6 L [place] % (Auto) 4 Eos % (Auto) 0 Baso % (Auto) 0 Neut # (Auto) 14.8 H Lymph # (Auto) 1.0 [place] # (Auto) 0.7 Eos # (Auto) 0.0 Baso # (Auto) 0.0 Immature Gran # (Auto) 0.14 H Absolute Nucleated RBC 0.00 Immature Gran % 1 H Nucleated RBC % 0 PT INR APTT Sodium 144 Potassium 4.2 D Chloride 111 H Carbon Dioxide 23.3 Anion Gap 10 BUN 50 H Creatinine 1.0 Estim Creat Clear Calc 59.1 L eGFR > 60 BUN/Creatinine Ratio 50 H Glucose 100 Calculated Osmolality 300 H Lactic Acid Calcium 7.4 L Corrected Calcium 8.4 L Phosphorus 3.6 Magnesium 2.4 Total Bilirubin 0.8 AST 25 ALT 33 Alkaline Phosphatase 92 D Total Protein 4.7 L Albumin 2.8 L Globulin 1.9 L Albumin/Globulin Ratio 1.5 Quality Measures Quality Measures VTE prophylaxis Advance care planning discussed with:: patient Assessment & Plan Assessment Current Active Medications: Generic Name Dose Route Start Last Admin Trade Name Freq PRN Reason Stop Dose Admin Acetaminophen 650 mg 05/06/25 12:19 Acetaminophen 325 Mg Tablet PO 06/05/25 12:18 Q6HR PRN PAIN 1-6 (mild-mod Hydralazine HCl 10 mg 05/05/25 14:53 05/06/25 20:30 Hydralazine Inj 20 Mg/Ml Vial IVP 06/04/25 12:59 10 mg Q6HR PRN Administration SBP >170 Fat Emulsion Intravenous 500 mls @ 32 mls/hr 05/07/25 18:00 11/11/25 18:43 Intralipid 20% Iv IV 06/06/25 17:59 32 mls/hr TUTHSA@1800 ABRAHAM Administration Piperacillin/Tazobactam/Dextrose 3.375 gm in 50 mls @ 12.5 mls/hr 05/07/25 22:00 05/09/25 05:29 Zosyn IV 05/14/25 21:59 12.5 mls/hr Q8HR ABRAHAM Administration Protocol Sodium Chloride 1,000 mls @ 75 mls/hr 05/08/25 11:06 05/08/25 21:30 Ns 0.45% IV 06/07/25 11:05 75 mls/hr .[id number] ABRAHAM Administration Potassium Acetate 20 meq/ 1,027 mls @ 90 mls/hr 05/09/25 02:30 05/09/25 02:00 Potassium Phosphate 15 mmol/ IV 05/09/25 13:54 90 mls/hr Magnesium Sulfate 1 gm/ X1 ONE Administration Calcium Gluconate 1 gm/ Amino Acids Insulin Human Regular 0 unit 05/06/25 18:00 05/08/25 05:52 Insulin Hum Regular 1 Unit/0.01 Ml (Per Unit) SC 06/05/25 17:59 1 unit Q6HR PRN Administration GLYCEMIC MANAGEMENT ON PN Protocol Metoclopramide HCl 10 mg 05/07/25 12:00 05/09/25 05:29 Metoclopramide Inj 5 Mg/Ml Vial 2 Ml IVP 06/06/25 11:59 10 mg Q6HR ABRAHAM Administration Protocol Ondansetron HCl 4 mg 05/07/25 09:25 05/08/25 15:47 Ondansetron Inj 2 Mg/Ml Inj 2 Ml IVP 05/31/25 16:31 4 mg Q4HR PRN Administration NAUSEA OR VOMITING Protocol Pharmacy Consult 1 each 05/05/25 10:29 Pha To Consult Parenteral Nutr 1 Each Each XX 06/04/25 10:28 PRN PRN CONSULT Plan Mr. Danielle is a 70 year old gentleman with hx of BPH with urinary retention, HLD, with no hx of prior abdominal surgeries who was found to have dilated loops of small bowel on CTAP, admitted for SBO, NPO with NG tube in place to LIS. s/p ex lap and appendectomy and cholecystectomy.pt having increased nausea and vomiting, og tube replaced, and strict npo, with plan for picc line and transition from ppn to tpn. SBO s/p ex lap - unresolved s/p appendectomy s/p cholecystectomy atelectesis and BL pneumonia - PNA improving Leukocytosis persists hyperbillirubenima- resolved Transaminitis- resolved Ddx sbo vs mesinteric ischemia vs pancreatitis vs malignancy CTAP Tiny nonobstructing right renal calculi fluid distended small bowel loops, consider early small bowel obstruction GB US: No evidence for cholelithiasis, acute cholecystitis or biliary ductal obstruction. 05/08: CTAP with Prominently fluid and air distended small bowel loops, Hx course: Failed upper gi series with gastrogaffin. post exlap, on ppn, tolerating clears and fulls, but not yet ready to wean the ppn given not meeting caloric needs with PO intake leukocytosis persists, changed abx to broader coverage with zosyn on 05/07 OG tube placed given distention, clamped on 05/09/2025, small-volume less than 100 cc of fluid output, pending PICC line, patient still discussing PICC line placement with his family Plan: NPO Zosyn 3.375 gm q6hr (05/07- Cefoxitin 2 gm q6hr (05/01-05/07) Doxycycline (05/03-05/08) zofran q4hr metaclopromide 10 mg IV qd Encourage ambulation PPN, will transition to TPN, with picc line placement Monitoring for flatus and bowel movement surgery consulted, appreciate recs, post op dietitian consulted, appreciate recs encourage use of IS Zinc 220 qd Vit C 500 BID multivitamin liquid 10 ml qd Hypertension Plan: Hydralazine every 6 hours as needed for SBP over 170 Continue to monitor GIOVANA - resolved Baseline Cr 0.8, 1.3-->1.1 likely prerenal 2/2 diminished po intake BPH with urinary retention follows with [facility] home tamsulosin 0.4 qd , holding given npo pt reports that he is able to void in small increments Plan bladder scan prn and straight cath as needed >300cc voiding appropriately HLD hold home atorvastatin 40 qhs Tobacco Use Disorder BL Pulmonary Nodules - stable CT chest: Bilateral pulmonary nodules dating to CT chest March 29, 2023- Stable bilateral subcentimeter pulmonary nodules Chest x-ray on 05/03/2025 showed mild hypoventilation noted with interval development of mild to moderate bibasilar opacities since prior exam, which could represent a combination of aspiration/pneumonia and dependent atelectasis. Plan -continue outpatient f/u with low dose cts -discussed smoking cessation, pt not interested, will provide info on cessation if interested. Mild Normocytic Anemia hgb stable Appears to be a chronic issue Plan: No direct intervention at this time Dispo: Medsurg, pt had gas, on IV abx, and iv pain mgmt, continuing PPN, still pending PICC line placement, clamped OG tube today. Diet: NPO, on ppn Bowel Reg: n/a high grade obstruction VTE ppx: SCD GI ppx: not indicated Code status: FULL Patient was seen and discussed with my attending physician Dr. Carola LEON and my senior resident Dr. Dereck LEON PGY-3. Kieran Lira DO PGY-1. Attending Provider Attestation/Addendum I reviewed labs, imaging, EKG, home medications and prior available records. Face to face evaluation was performed by me. I have personally examined the patient and discussed assessment and plan with the IM team. I reviewed the resident note and agree with the plan with exceptions as below. Small bowel obstruction Leukocytosis Status post exploratory laparotomy on 05/01 and partial bowel resection Status post appendectomy and cholecystectomy WBC uptrended. Abdomen is more distended. Ordered repeat CT scan that showed distended bowel loops Changed diet back to n.p.o. Inserted NG tube. Broaden antibiotics to IV Zosyn PICC line for TPN General Surgery is following: Continue current n.p.o., Zosyn, and PPN for now. Clamp NG tube
--- NOTE | 2025-05-09 11:29 | PD.SURPROG ---
Documentation for date of: 05/09/25 Subjective Subjective Narrative: Patient is seen and examined. He feels better today and has not had episodes of emesis. He did have a bowel movement Exam Vital Signs Temp Pulse Resp BP Pulse Ox O2 Del Method O2 Flow Rate 98.3 F 83 18 125/67 95 Nasal Cannula 2 05/09/25 07:20 05/09/25 07:20 05/09/25 07:20 05/09/25 07:20 05/09/25 07:20 05/09/25 07:20 05/09/25 07:20 Constitutional Constitutional: no acute distress Routine Abdominal Exam Comments: Abdomen is soft and mildly distended. Bowel sounds are present. Incision is clean, dry and intact Assessment & Plan Assessment Additional comments: Postop day #8 status post partial small bowel resection, cholecystectomy and appendectomy Plan Will keep n.p.o. with PPN. Continue IV antibiotics. Clamp the NG tube PROCEDURES: Procedures Exploratory laparotomy, partial small bowel resection with anastomosis Cholecystectomy Appendectomy
[2025-05-09] MEDS: SODIUM CHLORIDE 0.45 % 1,000 ML 75 ML IV (11:52)
--- NOTE | 2025-05-09 16:01 | PC.SS ---
Rounding Note: Plan is for PICC line insertion today. Dr. Weeks consulting.
[2025-05-09] MEDS: FAT EMULSIONS 20% IV 500 ML 32 ML IV (17:42)
[2025-05-10] VITALS (18 sets, daily range): BP systolic 130–154; BP diastolic 60–77; PULSE 64–83; RESP 16–20; TEMP 36–37; O2SAT 93–100; BMI 20.5
--- NOTE | 2025-05-10 | XR_ITS ---
Examination: Ultrasound-guided needle placement right basilic vein. Dual-lumen central line placement (PICC line). Fluoroscopy AP chest, portable, single view Exam date and time: May 10, 2025, 1012 hours INDICATIONS: Need for long-term parenteral nutrition A timeout was completed verifying correct patient, procedure, site, positioning Informed consent provided Technique: The patient's site was prepped and draped in sterile fashion. Maximum Sterile Barrier Technique used including cap, mask, sterile gown, sterile gloves, and sterile full body drape. If ultrasound technique used: sterile gel and sterile probe covers. Hand Hygiene performed using proper scrub, soap and water, or alcohol-based hand rub. Ultrasound utilized to confirm patency of the right basilic vein Utilizing ultrasonic guidance successful 21-gauge needle puncture into the right basilic vein Ultrasound images recorded and stored. 5 cc 1% lidocaine administered for local anesthetic. Successful micropuncture with a 21-gauge needle is performed. 0.18 wire guide is then introduced into the SVC under fluoroscopic guidance. Dual-lumen catheter dilator is then introduced, followed by the catheter in the SVC and proper position under fluoroscopic guidance. Successful aspiration of blood and flushing with heparinized saline is then performed in the 2 venous limbs. The catheter sutured in place. Findings: Under fluoroscopy, the tip of the catheter is in good position in the vena cava. Portable chest x-ray, post line placement is ordered. Estimated blood loss 3 cc The patient tolerated the procedure well and was in stable and satisfactory condition at completion of the procedure Impression: Successful ultrasound-guided needle placement right basilic vein Successful placement of dual lumen central line, percutaneous Fluoroscopy 0.1-minute radiation dose 0.50 mGy 1 spot fluoroscopic chest. AP chest completion procedure demonstrates satisfactory position central line. May use central line.
[2025-05-10] MEDS: METOCLOPRAMIDE INJ 5 MG/ML VIAL 2 ML 10 MG IVP ×5 (00:05→23:26)
[2025-05-10] MEDS: ACETAMINOPHEN IVPB 1,000 MG/100 ML VIAL 250 MG IV ×3 (00:06→23:29)
[2025-05-10] MEDS: SODIUM CHLORIDE 0.45 % 1,000 ML 75 ML IV (06:20)
[2025-05-10] MEDS: PIPER/TAZO 3.375 GM PREMIX 3.375 GM/50 ML BAG IV ×3 (06:21→21:18)
[2025-05-10 06:27] LABS: Basophils # (Auto) 0.0 Thou/mm3 (0.0-0.2); Basophils % (Auto) 0 % (0-2.5); Eosinophils # (Auto) 0.0 Thou/mm3 (0.0-0.5); Eosinophils % (Auto) 0 % (0-10); Hematocrit 26.5 % (41.0-53.0); Hemoglobin 8.9 g/dL (13.5-16.0); Immature Granulocytes Auto 0.14 Thou/mm3 (0.00-0.00); Lymphocytes # (Auto) 1.0 Thou/mm3 (1.0-4.8); Lymphocytes % (Auto) 6 % (10-50); Mean Corpuscular HGB Conc 33.6 g/dl (31.0-37.0); Mean Corpuscular Hemoglobin 31.9 pg (25.0-35.0); Mean Corpuscular Volume 95 fL (80-100); Monocytes # (Auto) 0.9 Thou/mm3 (0.0-0.8); Monocytes % (Auto) 6 % (0-12); Neutrophils # (Auto) 13.2 Thou/mm3 (1.8-7.7); Neutrophils % (Auto) 87 % (37-80); Nucleated Red Blood Cell # 0.00 Thou/mm3 (0.00-0.00); Nucleated Red Blood Cell % 0 /100 WBC (0); Platelet Count 369 Thou/mm3 (140-440); RDW Standard Deviation 51.5 fL (35.1-43.9); Red Blood Count 2.79 Miln/mm3 (4.50-5.90); White Blood Count 15.3 Thou/mm3 (3.8-10.6)
[2025-05-10 06:37] LABS: Alanine Aminotransferase 47 U/L (10-49); Albumin, Serum 2.8 gm/dL (3.4-4.8); Albumin/Globulin Ratio 1.3 (1.2-2.2); Alkaline Phosphatase 94 U/L (46-116); Anion Gap 8 (7-16); Aspartate Amino Transferase 45 U/L (0-34); BUN/Creatinine Ratio 30 Ratio (12-20); Bilirubin,Total 1.0 mg/dL (0.3-1.2); Blood Urea Nitrogen 27 mg/dL (9-23); Calcium 8.0 mg/dL (8.3-10.6); Calcium (Corrected) 9.0 mg/dL (8.5-10.1); Carbon Dioxide 22.8 mMol/L (20.0-31.0); Chloride 111 mMol/L (98-107); Creatinine (Component) 0.9 mg/dL (0.6-1.3); Estimated Creatinine Clearance 65.7 mL/min (>60); Globulin 2.2 gm/dL (2.3-3.5); Glucose 88 mg/dL (74-106); Magnesium 2.0 mg/dL (1.6-2.6); Osmolality,Calculated 287 (275-295); Phosphorous 3.1 mg/dL (2.4-5.1); Potassium 3.6 mMol/L (3.4-5.1); Sodium 142 mMol/L (136-145); Total Protein 5.0 gm/dL (5.7-8.2); eGFR > 60 See Note
--- NOTE | 2025-05-10 07:49 | PD.RESPRO ---
Documentation for date of: 05/10/25 Subjective Subjective Interval history: Patient seen and examined at bedside per nurse, ppn was stopped at 2300 because of poor IV access picc line placed og tube clamped, pt does not want to advance tube 4 cm at this time due to overall discomfort TPN to start this evening pt endorses delirium symptoms at night will give iv apap through picc line, pt amenable and morphine and low dose benydryl tonight to help sleep will defer small bowel series today as pt is extremely uncomfortable and wishes to wait. pt endorses lots of phlegm, will trial chest PT this evening to help him expectorate. Exam Vital Signs Temp Pulse Resp BP Pulse Ox O2 Del Method O2 Flow Rate 97.8 F 76 16 134/64 H 93 L Nasal Cannula 2 05/10/25 04:00 05/10/25 06:51 05/10/25 06:51 05/10/25 04:00 05/10/25 06:51 05/10/25 04:00 05/10/25 06:51 Narrative Exam GENERAL: no acute distress, AAO x3, laying in bed, fatigued and irritable HEENT: Head AT/ NC. Mucous membranes dry. PERRL. NECK: Supple, no lymphadenopathy, no carotid bruits. CARDIOVASCULAR: RRR. Normal S1/S2, No m/r/g. No pitting edema of bilateral LEs. RESPIRATORY: lungs with diminished work of breathing on 1 L NC, satting 95 GASTROINTESTINAL: Abdomen soft, with midline incision closed with pato, has some errythema noted along the edges of incision, and some serosanguenous fluid weaping from inferior aspect of wound, no puralence noted, 4x4 g[address] at the inferior boarder that was changed in the am after noting it to be soaked. MUSCULOSKELETAL:? No cyanosis or edema, no visible joint swelling. arthritic hand joints NEUROLOGICAL: CN II-XII grossly intact. No focal deficits. Sensation intact, symmetric. PSYCHIATRIC: Awake and alert, not agitated, normal mood and affect. SKIN: No obvious rashes, no jaundice, normal turgor. Objective Labs 05/10/25 04:20 05/10/25 04:20 Labs: Laboratory Results - last 24 hr 05/10/25 04:20 WBC 15.3 H RBC 2.79 L Hgb 8.9 L Hct 26.5 L MCV 95 MCH 31.9 MCHC 33.6 RDW Std Deviation 51.5 H Plt Count 369 D Neut % (Auto) 87 H Lymph % (Auto) 6 L [place] % (Auto) 6 Eos % (Auto) 0 Baso % (Auto) 0 Neut # (Auto) 13.2 H Lymph # (Auto) 1.0 [place] # (Auto) 0.9 H Eos # (Auto) 0.0 Baso # (Auto) 0.0 Immature Gran # (Auto) 0.14 H Absolute Nucleated RBC 0.00 Immature Gran % 1 H Nucleated RBC % 0 Sodium 142 Potassium 3.6 D Chloride 111 H Carbon Dioxide 22.8 Anion Gap 8 BUN 27 H Creatinine 0.9 Estim Creat Clear Calc 65.7 eGFR > 60 BUN/Creatinine Ratio 30 H Glucose 88 Calculated Osmolality 287 Calcium 8.0 L Corrected Calcium 9.0 Phosphorus 3.1 Magnesium 2.0 Total Bilirubin 1.0 AST 45 H ALT 47 Alkaline Phosphatase 94 Total Protein 5.0 L Albumin 2.8 L Globulin 2.2 L Albumin/Globulin Ratio 1.3 Quality Measures Quality Measures VTE prophylaxis Advance care planning discussed with:: patient Assessment & Plan Assessment Current Active Medications: Generic Name Dose Route Start Last Admin Trade Name Freq PRN Reason Stop Dose Admin Acetaminophen 650 mg 05/06/25 12:19 Acetaminophen 325 Mg Tablet PO 06/05/25 12:18 Q6HR PRN PAIN 1-6 (mild-mod Hydralazine HCl 10 mg 05/05/25 14:53 05/06/25 20:30 Hydralazine Inj 20 Mg/Ml Vial IVP 06/04/25 12:59 10 mg Q6HR PRN Administration SBP >170 Fat Emulsion Intravenous 500 mls @ 32 mls/hr 05/07/25 18:00 05/09/25 23:30 Intralipid 20% Iv IV 06/06/25 17:59 0 mls/hr [email or web address] MARILU Infusion Piperacillin/Tazobactam/Dextrose 3.375 gm in 50 mls @ 12.5 mls/hr 05/07/25 22:00 05/10/25 06:21 Zosyn IV 05/14/25 21:59 12.5 mls/hr Q8HR MARILU Administration Protocol Sodium Chloride 1,000 mls @ 75 mls/hr 05/08/25 11:06 05/10/25 06:20 Ns 0.45% IV 06/07/25 11:05 75 mls/hr .[id number] MARILU Administration Promethazine HCl 25 mg/ Sodium 51 mls @ 2.5 mls/min 05/09/25 11:31 Chloride IV 06/08/25 11:30 Q6HR PRN NAUSEA OR VOMITING Protocol Potassium Acetate 30 meq/ 2,045 mls @ 90 mls/hr 05/09/25 13:30 05/09/25 23:30 Calcium Gluconate 2 gm/ IV 05/10/25 12:13 0 mls/hr Multivitamins/Minerals 10 ml/ X1 ONE Infusion Amino Acids Insulin Human Regular 0 unit 05/06/25 18:00 05/08/25 05:52 Insulin Hum Regular 1 Unit/0.01 Ml (Per Unit) SC 06/05/25 17:59 1 unit Q6HR PRN Administration GLYCEMIC MANAGEMENT ON PN Protocol Metoclopramide HCl 10 mg 05/07/25 12:00 05/10/25 06:20 Metoclopramide Inj 5 Mg/Ml Vial 2 Ml IVP 06/06/25 11:59 10 mg Q6HR MARILU Administration Protocol Pharmacy Consult 1 each 05/05/25 10:29 Pha To Consult Parenteral Nutr 1 Each Each XX 06/04/25 10:28 PRN PRN CONSULT Plan Mr. Danielle is a 70 year old gentleman with hx of BPH with urinary retention, HLD, with no hx of prior abdominal surgeries who was found to have dilated loops of small bowel on CTAP, admitted for SBO, NPO with NG tube in place to LIS. s/p ex lap and appendectomy and cholecystectomy.pt having increased nausea and vomiting, og tube replaced, and strict npo, with plan for picc line and transition from ppn to tpn. SBO s/p ex lap - unresolved s/p appendectomy s/p cholecystectomy atelectesis and BL pneumonia - PNA improving Leukocytosis persists hyperbillirubenima- resolved Transaminitis- resolved Ddx sbo vs mesinteric ischemia vs pancreatitis vs malignancy CTAP Tiny nonobstructing right renal calculi fluid distended small bowel loops, consider early small bowel obstruction GB US: No evidence for cholelithiasis, acute cholecystitis or biliary ductal obstruction. 05/08: CTAP with Prominently fluid and air distended small bowel loops, Hx course: Failed upper gi series with gastrogaffin. post exlap, on ppn, tolerating clears and fulls, but not yet ready to wean the ppn given not meeting caloric needs with PO intake leukocytosis persists, changed abx to broader coverage with zosyn on 05/07 OG tube placed given distention, clamped on 05/09/2025, PICC line placed 05/10, will start TPN endorses lots of phlegm Plan: PICC line placed 05/10 Surgery recommends small bowel series, pt wishes to defer till tomorrow. NPO Zosyn 3.375 gm q6hr (05/07- Cefoxitin 2 gm q6hr (05/01-05/07) Doxycycline (05/03-05/08) zofran q4hr metaclopromide 10 mg IV qd d/c ppn, start tpn 05/10 Encourage ambulation encourage use of IS chest PT for help with phlegm expectoration Pain/Sleep Managment pt prefers to not be confused, and avoid narcotics IV APAP q6hr marilu x1 morphine 2mg qhs x1 benydryl 12.5 qhs Supplements Zinc 220 qd Vit C 500 BID multivitamin liquid 10 ml qd Consults continues to pass gas and have bowel sounds and have hard green BM surgery consulted, appreciate recs, post op dietitian consulted, appreciate recs Hypertension Plan: Hydralazine every 6 hours as needed for SBP over 170 Continue to monitor GIOVANA - resolved Baseline Cr 0.8, 1.3-->1.1 likely prerenal 2/2 diminished po intake BPH with urinary retention follows with [facility] home tamsulosin 0.4 qd , holding given npo pt reports that he is able to void in small increments Plan bladder scan prn and straight cath as needed >300cc voiding appropriately HLD hold home atorvastatin 40 qhs Tobacco Use Disorder BL Pulmonary Nodules - stable CT chest: Bilateral pulmonary nodules dating to CT chest March 29, 2023- Stable bilateral subcentimeter pulmonary nodules Chest x-ray on 05/03/2025 showed mild hypoventilation noted with interval development of mild to moderate bibasilar opacities since prior exam, which could represent a combination of aspiration/pneumonia and dependent atelectasis. Plan -continue outpatient f/u with low dose cts -discussed smoking cessation, pt not interested, will provide info on cessation if interested. Mild Normocytic Anemia hgb stable Appears to be a chronic issue Plan: No direct intervention at this time Dispo: Medsurg, pt had gas, on IV abx, and iv pain mgmt, d/c ppn, start tpn, picc line placed today. pending small bowel series Diet: NPO, on tpn Bowel Reg: n/a high grade obstruction VTE ppx: SCD GI ppx: not indicated Code status: FULL Plan discussed with my attending Dr. Caitlyn Morris MD PGY1 Attending Provider Attestation/Addendum Patient was seen and examined. He had his ex lap for small bowel obstruction. The patient has an OGT that needs to be advanced 4 cm. Will keep OGT for now. Pending small bowel series. Maybe the patient will let staff jadvance the NGT at a later time. The patient has bowel sounds. He remains on PPN. PICC line was inserted today. PICC line is on the left arm. Case discussed with staff.v
--- NOTE | 2025-05-10 10:17 | PC.NURSE ---
patient's daughter's phone number Jahaira Galdamez is [phone], not [phone].
[2025-05-10] MEDS: HEPARIN SOD LOCK SYR 100 UNIT/ML 500 UNIT STFIELD (11:04)
[2025-05-10] MEDS: LIDOCAINE INJ PF 1% 30 ML VIAL INFL (11:04)
--- NOTE | 2025-05-10 11:43 | PC.NURSE ---
1120 patient post picc line inertion to right upper arm, no bleeding noted, patient transferred back to room 367, report given to Elsa CHEN
--- NOTE | 2025-05-10 12:11 | PD.SURPROG ---
Documentation for date of: 05/10/25 Subjective Subjective Narrative: Patient is seen and examined. His pain is improving. He has had some nausea but no vomiting. He has had bowel movements Exam Vital Signs Temp Pulse Resp BP Pulse Ox O2 Del Method O2 Flow Rate 97.9 F 65 18 142/67 H 95 Nasal Cannula 2 05/10/25 09:59 05/10/25 11:10 05/10/25 11:10 05/10/25 11:10 05/10/25 11:10 05/10/25 11:10 05/10/25 11:10 Constitutional Constitutional: no acute distress Routine Abdominal Exam Comments: Abdomen is soft and mildly distended. Incision is clean, dry and intact Assessment & Plan Assessment Additional comments: Postop day #9 status post partial small bowel resection, cholecystectomy and appendectomy Plan Continue IV antibiotics. Will keep n.p.o. with OG tube. I will obtain small bowel series to rule out small bowel obstruction PROCEDURES: Procedures Exploratory laparotomy, partial small bowel resection with anastomosis Cholecystectomy Appendectomy
--- NOTE | 2025-05-10 13:03 | XR_ITS ---
Examination: Abdomen AP single view Technique: AP portable supine abdomen, single view Exam date and time: May 10, 2025, 1309 hours INDICATIONS: Abdominal pain this week. FINDINGS: Significantly air distended small bowel loops No free air Recommend advancing the orogastric tube 4 cm IMPRESSION: Significantly air distended small bowel loops
--- NOTE | 2025-05-10 15:15 | PC.SS ---
rounding note: Patient pending small bowel series. Patient on OG tube. PT recommends SNF. SS will need to inquire with patient. Patient has ins. coverage and no need for auth if he changes his mind and chooses to go.
[2025-05-10] MEDS: MORPHINE SULF INJ 4 MG/ML VIAL 2 MG IVP (23:27)
[2025-05-11] VITALS (13 sets, daily range): BP systolic 112–138; BP diastolic 54–71; PULSE 55–75; RESP 16–90; TEMP 36.3–36.7; O2SAT 90–100
[2025-05-11] MEDS: INSULIN HUM REGULAR 1 UNIT/0.01 ML (PER UNIT) SC ×3 (05:43→23:44)
[2025-05-11] MEDS: ACETAMINOPHEN IVPB 1,000 MG/100 ML VIAL 250 MG IV ×2 (05:44→12:49)
[2025-05-11] MEDS: PIPER/TAZO 3.375 GM PREMIX 3.375 GM/50 ML BAG IV ×3 (05:47→21:57)
[2025-05-11] MEDS: METOCLOPRAMIDE INJ 5 MG/ML VIAL 2 ML 10 MG IVP ×4 (05:49→23:36)
[2025-05-11 06:07] LABS: Basophils # (Auto) 0.0 Thou/mm3 (0.0-0.2); Basophils % (Auto) 0 % (0-2.5); Eosinophils # (Auto) 0.0 Thou/mm3 (0.0-0.5); Eosinophils % (Auto) 0 % (0-10); Hematocrit 26.3 % (41.0-53.0); Hemoglobin 8.9 g/dL (13.5-16.0); Immature Granulocytes Auto 0.13 Thou/mm3 (0.00-0.00); Lymphocytes # (Auto) 0.9 Thou/mm3 (1.0-4.8); Lymphocytes % (Auto) 8 % (10-50); Mean Corpuscular HGB Conc 33.8 g/dl (31.0-37.0); Mean Corpuscular Hemoglobin 32.7 pg (25.0-35.0); Mean Corpuscular Volume 97 fL (80-100); Monocytes # (Auto) 0.8 Thou/mm3 (0.0-0.8); Monocytes % (Auto) 7 % (0-12); Neutrophils # (Auto) 10.1 Thou/mm3 (1.8-7.7); Neutrophils % (Auto) 84 % (37-80); Nucleated Red Blood Cell # 0.00 Thou/mm3 (0.00-0.00); Nucleated Red Blood Cell % 0 /100 WBC (0); Platelet Count 431 Thou/mm3 (140-440); RDW Standard Deviation 51.5 fL (35.1-43.9); Red Blood Count 2.72 Miln/mm3 (4.50-5.90); White Blood Count 12.0 Thou/mm3 (3.8-10.6)
[2025-05-11 06:48] LABS: Alanine Aminotransferase 39 U/L (10-49); Albumin, Serum 2.8 gm/dL (3.4-4.8); Albumin/Globulin Ratio 1.3 (1.2-2.2); Alkaline Phosphatase 90 U/L (46-116); Anion Gap 9 (7-16); Aspartate Amino Transferase 33 U/L (0-34); BUN/Creatinine Ratio 21 Ratio (12-20); Bilirubin,Total 0.9 mg/dL (0.3-1.2); Blood Urea Nitrogen 19 mg/dL (9-23); Calcium 7.8 mg/dL (8.3-10.6); Calcium (Corrected) 8.8 mg/dL (8.5-10.1); Carbon Dioxide 24.8 mMol/L (20.0-31.0); Chloride 109 mMol/L (98-107); Creatinine (Component) 0.9 mg/dL (0.6-1.3); Estimated Creatinine Clearance 64.2 mL/min (>60); Globulin 2.2 gm/dL (2.3-3.5); Glucose 142 mg/dL (74-106); Magnesium 1.9 mg/dL (1.6-2.6); Osmolality,Calculated 289 (275-295); Phosphorous 3.1 mg/dL (2.4-5.1); Potassium 3.5 mMol/L (3.4-5.1); Sodium 143 mMol/L (136-145); Total Protein 5.0 gm/dL (5.7-8.2); eGFR > 60 See Note
--- NOTE | 2025-05-11 09:01 | PD.SURPROG ---
Documentation for date of: 05/11/25 Subjective Subjective Narrative: Patient is seen and examined. He is resting comfortably. His pain is improving and he slept well last night. He has not had nausea or vomiting. Exam Vital Signs Temp Pulse Resp BP Pulse Ox O2 Del Method O2 Flow Rate 97.3 F 61 17 128/71 100 Nasal Cannula 1 05/11/25 07:41 05/11/25 07:41 05/11/25 07:41 05/11/25 07:41 05/11/25 07:41 05/11/25 07:41 05/11/25 07:41 Constitutional Constitutional: no acute distress Routine Abdominal Exam Comments: Abdomen is soft and very minimally distended. Incision is intact with minimal clear drainage from the inferior aspect Assessment & Plan Assessment Additional comments: Postop day #10 status post partial small bowel resection, cholecystectomy and appendectomy. Prolonged postop ileus. Small bowel series was not done for some reason. Clinically improving, has remained afebrile and WBC is trending down Plan Patient was given option to advance OG tube or to remove OG tube and he will drink the Gastrografin for the small bowel series. He elected to drink the Gastrografin for the small bowel series. PROCEDURES: Procedures Exploratory laparotomy, partial small bowel resection with anastomosis Cholecystectomy Appendectomy
--- NOTE | 2025-05-11 09:50 | ESPR_ITS ---
<Statement entered by Madhuri Grider MD - 05/11/25 16:01> Pt is seen at bedside. Reports to BM today, denies N/V. Pt does have some abdominal pain and endorses improved from couple days ago, abdomen is not distended. OG tube is discontinued and small bowel series is ordered by surgery Dr. Weeks. Will follow up GI series. leukocyte count is down trended and remainder of labs are stable. Patient was seen and examined by me personally. I have directly supervised and reviewed documentation by the team resident and agree with its findings. ------- Plan of care was discussed with the attending, Dr. Caitlyn Grider, PGY-2 Documentation for date of: 05/11/25 Subjective Subjective Interval history: * Patient seen and examined at bedside. * Abdominal x-ray yesterday showed air distended bowel loops. * PICC line was placed yesterday. * Surgery team removed OG tube. * Small bowel series planned for today. Exam Vital Signs Temp Pulse Resp BP Pulse Ox O2 Del Method O2 Flow Rate 97.3 F 66 17 128/71 100 Nasal Cannula 1 05/11/25 07:41 05/11/25 09:42 05/11/25 07:41 05/11/25 07:41 05/11/25 07:41 05/11/25 07:41 05/11/25 07:41 Narrative Exam General: Awake and in no acute distress. Conversational and non-toxic appearing. Neurologic: GCS 15. Alert and oriented x3, no gross neurological deficit, and patient able to move all 4 extremities. HEENT: Normocephalic, atraumatic, mucous membranes moist. Pupils reactive to light. Heart: Regular rate and rhythm, normal S1 and S2, no murmurs. Lungs: Clear to auscultation bilaterally with no wheezing or crackles. Abdomen: Diffuse tenderness, midline surgical incision with gauze packing at the inferior aspect, no sign of infection. Extremities: No edema. 2+ radial and dorsalis pedis pulses bilaterally. Skin: Warm. Dry. No rash or ecchymoses. Objective Labs 05/17/25 04:10 05/17/25 04:10 Labs: Laboratory Results - last 24 hr 05/11/25 05:20 WBC 12.0 H RBC 2.72 L Hgb 8.9 L Hct 26.3 L MCV 97 MCH 32.7 MCHC 33.8 RDW Std Deviation 51.5 H Plt Count 431 D Neut % (Auto) 84 H Lymph % (Auto) 8 L [place] % (Auto) 7 Eos % (Auto) 0 Baso % (Auto) 0 Neut # (Auto) 10.1 H Lymph # (Auto) 0.9 L [place] # (Auto) 0.8 Eos # (Auto) 0.0 Baso # (Auto) 0.0 Immature Gran # (Auto) 0.13 H Absolute Nucleated RBC 0.00 Immature Gran % 1 H Nucleated RBC % 0 Sodium 143 Potassium 3.5 Chloride 109 H Carbon Dioxide 24.8 Anion Gap 9 BUN 19 Creatinine 0.9 Estim Creat Clear Calc 64.2 eGFR > 60 BUN/Creatinine Ratio 21 H Glucose 142 H D Calculated Osmolality 289 Calcium 7.8 L Corrected Calcium 8.8 Phosphorus 3.1 Magnesium 1.9 Total Bilirubin 0.9 AST 33 ALT 39 Alkaline Phosphatase 90 Total Protein 5.0 L Albumin 2.8 L Globulin 2.2 L Albumin/Globulin Ratio 1.3 Quality Measures Quality Measures VTE prophylaxis Advance care planning discussed with:: patient Assessment & Plan Assessment Current Active Medications: Generic Name Dose Route Start Last Admin Trade Name Freq PRN Reason Stop Dose Admin Acetaminophen 650 mg 05/06/25 12:19 Acetaminophen 325 Mg Tablet PO 06/05/25 12:18 On Hold: 05/10/25 15:02 Q6HR PRN Comment: IV APAP ACTIVE PAIN 1-6 (mild-mod Hydralazine HCl 10 mg 05/05/25 14:53 05/06/25 20:30 Hydralazine Inj 20 Mg/Ml Vial IVP 06/04/25 12:59 10 mg Q6HR PRN Administration SBP >170 Fat Emulsion Intravenous 500 mls @ 32 mls/hr 05/07/25 18:00 05/09/25 23:30 Intralipid 20% Iv IV 06/06/25 17:59 0 mls/hr [email or web address] MARILU Infusion Piperacillin/Tazobactam/Dextrose 3.375 gm in 50 mls @ 12.5 mls/hr 05/07/25 22:00 05/11/25 05:47 Zosyn IV 05/14/25 21:59 12.5 mls/hr Q8HR MARILU Administration Protocol Promethazine HCl 25 mg/ Sodium 51 mls @ 2.5 mls/min 05/09/25 11:31 Chloride IV 06/08/25 11:30 Q6HR PRN NAUSEA OR VOMITING Protocol Potassium Acetate 40 meq/ 2,030 mls @ 25 mls/hr 05/10/25 18:00 05/11/25 02:00 Multivitamins/Minerals 10 ml/ IV 05/11/25 17:59 40 mls/hr Amino Acids/Electrolytes .Q24H MARILU Infusion Acetaminophen 1,000 mg in 100 mls @ 250 mls/hr 05/10/25 14:58 05/11/25 05:44 Ofirmev Inj IV 05/11/25 12:23 250 mls/hr Q6HR MARILU Administration Potassium Chloride 10 meq in 100 mls @ 100 mls/hr 05/11/25 08:05 Kcl Ivpb IV 05/11/25 12:04 Q1H MARILU Insulin Human Regular 0 unit 05/06/25 18:00 05/11/25 05:43 Insulin Hum Regular 1 Unit/0.01 Ml (Per Unit) SC 06/05/25 17:59 2 unit Q6HR PRN Administration GLYCEMIC MANAGEMENT ON PN Protocol Metoclopramide HCl 10 mg 05/07/25 12:00 05/11/25 05:49 Metoclopramide Inj 5 Mg/Ml Vial 2 Ml IVP 06/06/25 11:59 10 mg Q6HR MARILU Administration Protocol Pharmacy Consult 1 each 05/05/25 10:29 Pha To Consult Parenteral Nutr 1 Each Each XX 06/04/25 10:28 PRN PRN CONSULT Plan Mr. Danielle is a 70 year old gentleman with hx of BPH with urinary retention, HLD, with no hx of prior abdominal surgeries who was found to have dilated loops of small bowel on CTAP, admitted for SBO, NPO with NG tube in place to LIS. s/p ex lap and appendectomy and cholecystectomy.pt having increased nausea and vomiting, og tube replaced, and strict npo, with plan for picc line and transition from ppn to tpn. SBO s/p ex lap - unresolved s/p appendectomy s/p cholecystectomy atelectesis and BL pneumonia - PNA improving Leukocytosis persists hyperbillirubenima- resolved Transaminitis- resolved Ddx sbo vs mesinteric ischemia vs pancreatitis vs malignancy CTAP Tiny nonobstructing right renal calculi fluid distended small bowel loops, consider early small bowel obstruction GB US: No evidence for cholelithiasis, acute cholecystitis or biliary ductal obstruction. 05/08: CTAP with Prominently fluid and air distended small bowel loops, Hx course: Failed upper gi series with gastrogaffin. post exlap, on ppn, tolerating clears and fulls, but not yet ready to wean the ppn given not meeting caloric needs with PO intake leukocytosis persists, changed abx to broader coverage with zosyn on 05/07 OG tube placed given distention, clamped on 05/09/2025, PICC line placed 05/10, started TPN Plan: Gastrografin small bowel series planned for 05/11/2025 per surgery NPO Zosyn 3.375 gm q6hr (05/07- Cefoxitin 2 gm q6hr (05/01-05/07) Doxycycline (05/03-05/08) zofran q4hr metaclopromide 10 mg IV qd Encourage ambulation encourage use of IS chest PT for help with phlegm expectoration Pain/Sleep Managment pt prefers to not be confused, and avoid narcotics IV APAP q6hr marilu x1 morphine 2mg qhs x1 benydryl 12.5 qhs Supplements Zinc 220 qd Vit C 500 BID multivitamin liquid 10 ml qd Consults continues to pass gas and have bowel sounds and have hard green BM surgery consulted, appreciate recs, post op dietitian consulted, appreciate recs Hypertension Patient currently normotensive Plan: Hydralazine every 6 hours as needed for SBP over 170 Continue to monitor GIOVANA - resolved Baseline Cr 0.8, 1.3-->1.1 likely prerenal 2/2 diminished po intake BPH with urinary retention follows with [facility] home tamsulosin 0.4 qd , holding given npo pt reports that he is able to void in small increments Plan bladder scan prn and straight cath as needed >300cc voiding appropriately HLD hold home atorvastatin 40 qhs Tobacco Use Disorder BL Pulmonary Nodules - stable CT chest: Bilateral pulmonary nodules dating to CT chest March 29, 2023- Stable bilateral subcentimeter pulmonary nodules Chest x-ray on 05/03/2025 showed mild hypoventilation noted with interval development of mild to moderate bibasilar opacities since prior exam, which could represent a combination of aspiration/pneumonia and dependent atelectasis. Plan -continue outpatient f/u with low dose cts -discussed smoking cessation, pt not interested, will provide info on cessation if interested. Mild Normocytic Anemia hgb stable Appears to be a chronic issue Plan: No direct intervention at this time Dispo: Medsurg, continuing on IV abx, and iv pain mgmt, PICC line placed and TPN started, pending small bowel series. Diet: NPO, on tpn Bowel Reg: n/a high grade obstruction VTE ppx: SCD GI ppx: not indicated Code status: FULL Patient was seen and discussed with my attending physician Dr. Caitlyn LEON and my senior resident Dr. Cheo LEON PGY-2. Kieran Lira DO PGY-1. Attending Provider Attestation/Addendum Patient with SBO , OGT inplace. Bowel series pending. Patient on TPN, has poor bowel function Not ambulatory as well. Patient not cooperateive at times. Continue present managment and surgery for follow up. Disucssed with housestaff.
[2025-05-11] MEDS: POTASSIUM CHL 10 mEq IVPB 10 MEQ/100 ML BAG 100 MEQ IV ×4 (10:56→21:00)
--- NOTE | 2025-05-11 12:01 | PC.NURSE ---
increased TPN to 65 mLs/hr at 1030
--- NOTE | 2025-05-11 13:00 | XR_ITS ---
EXAMINATION: Small bowel series AP portable supine abdomen 3 views Date and time: May 11, 2025, 1316 hours INDICATIONS: Abdominal pain post abdominal surgery, CT abdomen pelvis May 08, 2025 prominently fluid and air distended small bowel loops TECHNIQUE AND FINDINGS: Patient received 120 cc Gastrografin through the orogastric tube AP portable supine abdomen films obtained 1 minute 30 minutes 1 hour Significantly contrast distended small bowel loops measuring up to 5 cm in dimension IMPRESSION: Small bowel obstruction pattern Recommend follow-up abdomen films 4:00 p.m., 6:00 p.m. 8:00 p.m.
--- NOTE | 2025-05-11 16:30 | XR_ITS ---
Examination: Abdomen AP single view Technique: AP portable supine abdomen, single view Exam date and time: May 11, 2025, 1624 hours INDICATIONS: Abdominal pain and distention post surgery, prominent fluid and air distended small bowel loops on CT examination May 08, 2025, lower 3-hour delayed film post small bowel series today FINDINGS: Contrast in distended small bowel loops, however abundant contrast in the right and transverse colon IMPRESSION: Incomplete small bowel obstruction Recommend 1 additional KUB at 8:00 p.m.
[2025-05-11] MEDS: FAT EMULSIONS 20% IV 500 ML 32 ML IV (17:59)
[2025-05-11] MEDS: POTASSIUM ACET IV (17:59)
[2025-05-11] MEDS: [UNRECOGNIZED DRUG - OTHER] IV (17:59)
[2025-05-11] MEDS: MAGNESIUM SULF IV (17:59)
[2025-05-11] MEDS: MULTIVITAMIN IV (17:59)
--- NOTE | 2025-05-11 20:30 | XR_ITS ---
Examination: Abdomen AP single view Technique: AP portable supine abdomen, single view Exam date and time: May 11, 2025, 2034 hours INDICATIONS: Abdominal pain and distention this week, 7-hour delayed film for small bowel series today. FINDINGS: Air distended small bowel loops but most of the contrast is in the colon IMPRESSION: Negative for complete small bowel obstruction, no further films are needed
[2025-05-12] VITALS (9 sets, daily range): BP systolic 109–138; BP diastolic 61–76; PULSE 77–91; RESP 16–22; TEMP 36.3–36.9; O2SAT 91–100
[2025-05-12] MEDS: PIPER/TAZO 3.375 GM PREMIX 3.375 GM/50 ML BAG IV ×3 (05:20→21:59)
[2025-05-12] MEDS: METOCLOPRAMIDE INJ 5 MG/ML VIAL 2 ML 10 MG IVP ×3 (05:21→18:09)
--- NOTE | 2025-05-12 05:29 | PC.NURSE ---
Bedside BS 141, Pt requiring insulin PRN for glycemic management on PN. Pt refused despite explanation as to why it is necessary to receive medication.
[2025-05-12 06:10] LABS: Basophils # (Auto) 0.0 Thou/mm3 (0.0-0.2); Basophils % (Auto) 0 % (0-2.5); Eosinophils # (Auto) 0.0 Thou/mm3 (0.0-0.5); Eosinophils % (Auto) 0 % (0-10); Hematocrit 23.2 % (41.0-53.0); Immature Granulocytes Auto 0.23 Thou/mm3 (0.00-0.00); Lymphocytes # (Auto) 1.4 Thou/mm3 (1.0-4.8); Lymphocytes % (Auto) 9 % (10-50); Mean Corpuscular HGB Conc 36.2 g/dl (31.0-37.0); Mean Corpuscular Hemoglobin 35.6 pg (25.0-35.0); Mean Corpuscular Volume 98 fL (80-100); Monocytes # (Auto) 0.8 Thou/mm3 (0.0-0.8); Monocytes % (Auto) 5 % (0-12); Neutrophils # (Auto) 13.7 Thou/mm3 (1.8-7.7); Neutrophils % (Auto) 85 % (37-80); Nucleated Red Blood Cell # 0.00 Thou/mm3 (0.00-0.00); Nucleated Red Blood Cell % 0 /100 WBC (0); Platelet Count 543 Thou/mm3 (140-440); RDW Standard Deviation 53.3 fL (35.1-43.9); Red Blood Count 2.36 Miln/mm3 (4.50-5.90); White Blood Count 16.2 Thou/mm3 (3.8-10.6)
[2025-05-12 06:12] LABS: Hemoglobin 8.4 g/dL (13.5-16.0)
[2025-05-12 06:51] LABS: Alanine Aminotransferase 31 U/L (10-49); Albumin, Serum 2.9 gm/dL (3.4-4.8); Albumin/Globulin Ratio 1.3 (1.2-2.2); Alkaline Phosphatase 80 U/L (46-116); Anion Gap 7 (7-16); Aspartate Amino Transferase 17 U/L (0-34); BUN/Creatinine Ratio 14 Ratio (12-20); Bilirubin,Total 0.3 mg/dL (0.3-1.2); Blood Urea Nitrogen 14 mg/dL (9-23); Calcium 8.0 mg/dL (8.3-10.6); Calcium (Corrected) 8.9 mg/dL (8.5-10.1); Carbon Dioxide 23.3 mMol/L (20.0-31.0); Chloride 103 mMol/L (98-107); Creatinine (Component) 1.0 mg/dL (0.6-1.3); Estimated Creatinine Clearance 56.0 mL/min (>60); Globulin 2.2 gm/dL (2.3-3.5); Magnesium 2.6 mg/dL (1.6-2.6); Osmolality,Calculated 297 (275-295); Phosphorous 4.2 mg/dL (2.4-5.1); Potassium 5.9 mMol/L (3.4-5.1); Sodium 133 mMol/L (136-145); Total Protein 5.1 gm/dL (5.7-8.2); eGFR > 60 See Note
[2025-05-12 06:59] LABS: Glucose 654 mg/dL (74-106)
--- NOTE | 2025-05-12 07:24 | ESPR_ITS ---
<Statement entered by Madhuri Grider MD - 05/12/25 20:13> Pt is seen at bedside, appears to be in pleasant mood. Pt has couple BM, Bowel series is negative for SBO. Will start liquid diet and advance as tolerated. Incision site is clean and dry, no purulent discharge is noted. Pt is encouraged to mobilize. Patient was seen and examined by me personally. I have directly supervised and reviewed documentation by the team resident and agree with its findings. ------- Plan of care was discussed with the attending, Dr. Luisito Grider, PGY-2 Documentation for date of: 05/12/25 Subjective Subjective Interval history: patient seen and examined at bedside appears more comfortable. he reports 7/10 pain that comes and goes but he is tolerating pt continues on TPN, started on diet by M[facility] small bowel series started yesterday shows resolution of sbo and pt continues to have BM Exam Vital Signs Temp Pulse Resp BP Pulse Ox O2 Del Method O2 Flow Rate 98.5 F 77 16 120/63 94 L Nasal Cannula 1 05/12/25 04:00 05/12/25 04:24 05/12/25 04:00 05/12/25 04:00 05/12/25 04:00 05/12/25 04:00 05/12/25 04:00 Narrative Exam GENERAL: no acute distress, AAO x3, laying in bed, fatigued, less irritable than prior HEENT: Head AT/ NC. Mucous membranes dry. PERRL. NECK: Supple, no lymphadenopathy, no carotid bruits. CARDIOVASCULAR: RRR. Normal S1/S2, No m/r/g. No pitting edema of bilateral LEs. RESPIRATORY: lungs clear with some diminishe sounds in the lung bases, satting well on room air GASTROINTESTINAL: Abdomen soft, with midline incision closed with pato, , and some serosanguenous fluid weaping from inferior aspect of wound, no puralence noted, 4x[address] at the inferior boarder that was changed in the am after noting it to be soaked. MUSCULOSKELETAL:? No cyanosis or edema, no visible joint swelling. arthritic hand joints, picc line in place in RUE NEUROLOGICAL: CN II-XII grossly intact. No focal deficits. Sensation intact, symmetric. PSYCHIATRIC: Awake and alert, not agitated, normal mood and affect. SKIN: No obvious rashes, no jaundice, normal turgor. Objective Labs 05/13/25 05:12 05/13/25 05:12 Labs: Laboratory Results - last 24 hr 05/12/25 05:00 WBC 16.2 H RBC 2.36 L Hgb 8.4 L Hct 23.2 L MCV 98 MCH 35.6 H MCHC 36.2 RDW Std Deviation 53.3 H Plt Count 543 H D Neut % (Auto) 85 H Lymph % (Auto) 9 L [place] % (Auto) 5 Eos % (Auto) 0 Baso % (Auto) 0 Neut # (Auto) 13.7 H Lymph # (Auto) 1.4 [place] # (Auto) 0.8 Eos # (Auto) 0.0 Baso # (Auto) 0.0 Immature Gran # (Auto) 0.23 H Absolute Nucleated RBC 0.00 Immature Gran % 1 H Nucleated RBC % 0 Sodium 133 L D Potassium 5.9 H D Chloride 103 Carbon Dioxide 23.3 Anion Gap 7 BUN 14 Creatinine 1.0 Estim Creat Clear Calc 56.0 L eGFR > 60 BUN/Creatinine Ratio 14 Glucose 654 H* D Calculated Osmolality 297 H Calcium 8.0 L Corrected Calcium 8.9 Phosphorus 4.2 Magnesium 2.6 Total Bilirubin 0.3 D AST 17 ALT 31 Alkaline Phosphatase 80 Total Protein 5.1 L Albumin 2.9 L Globulin 2.2 L Albumin/Globulin Ratio 1.3 Quality Measures Quality Measures VTE prophylaxis Advance care planning discussed with:: patient Assessment & Plan Assessment Current Active Medications: Generic Name Dose Route Start Last Admin Trade Name Freq PRN Reason Stop Dose Admin Acetaminophen 650 mg 05/06/25 12:19 Acetaminophen 325 Mg Tablet PO 06/05/25 12:18 On Hold: 05/10/25 15:02 Q6HR PRN Comment: IV APAP ACTIVE PAIN 1-6 (mild-mod Hydralazine HCl 10 mg 05/05/25 14:53 05/06/25 20:30 Hydralazine Inj 20 Mg/Ml Vial IVP 06/04/25 12:59 10 mg Q6HR PRN Administration SBP >170 Fat Emulsion Intravenous 500 mls @ 32 mls/hr 05/07/25 18:00 05/11/25 17:59 Intralipid 20% Iv IV 06/06/25 17:59 32 mls/hr [email or web address] MARILU Administration Piperacillin/Tazobactam/Dextrose 3.375 gm in 50 mls @ 12.5 mls/hr 05/07/25 22:00 05/12/25 05:20 Zosyn IV 05/14/25 21:59 12.5 mls/hr Q8HR MARILU Administration Protocol Promethazine HCl 25 mg/ Sodium 51 mls @ 2.5 mls/min 05/09/25 11:31 Chloride IV 06/08/25 11:30 Q6HR PRN NAUSEA OR VOMITING Protocol Potassium Acetate 40 meq/ 2,034 mls @ 65 mls/hr 05/11/25 18:00 05/11/25 17:59 Magnesium Sulfate 2 gm/ IV 05/12/25 17:59 65 mls/hr Multivitamins/Minerals 10 ml/ .Q24H MARILU Administration Amino Acids/Electrolytes Insulin Human Regular 0 unit 05/06/25 18:00 05/11/25 23:44 Insulin Hum Regular 1 Unit/0.01 Ml (Per Unit) SC 06/05/25 17:59 2 unit Q6HR PRN Administration GLYCEMIC MANAGEMENT ON PN Protocol Metoclopramide HCl 10 mg 05/07/25 12:00 05/12/25 05:21 Metoclopramide Inj 5 Mg/Ml Vial 2 Ml IVP 06/06/25 11:59 10 mg Q6HR MARILU Administration Protocol Pharmacy Consult 1 each 05/05/25 10:29 Pha To Consult Parenteral Nutr 1 Each Each XX 06/04/25 10:28 PRN PRN CONSULT Plan Mr. Danielle is a 70 year old gentleman with hx of BPH with urinary retention, HLD, with no hx of prior abdominal surgeries who was found to have dilated loops of small bowel on CTAP, admitted for SBO, NPO with NG tube in place to LIS. s/p ex lap and appendectomy and cholecystectomy.on tpn, sp small bowel series with gastrogaffin and resolution of sbo on xray imaging. SBO s/p ex lap - resolved s/p appendectomy s/p cholecystectomy atelectesis and BL pneumonia - PNA improving Leukocytosis downtrending hyperbillirubenima- resolved Transaminitis- resolved Ddx sbo vs mesinteric ischemia vs pancreatitis vs malignancy CTAP Tiny nonobstructing right renal calculi fluid distended small bowel loops, consider early small bowel obstruction GB US: No evidence for cholelithiasis, acute cholecystitis or biliary ductal obstruction. 05/08: CTAP with Prominently fluid and air distended small bowel loops, Hx course: Failed upper gi series with gastrogaffin. post exlap, on ppn, tolerating clears and fulls, but not yet ready to wean the ppn given not meeting caloric needs with PO intake leukocytosis persists, changed abx to broader coverage with zosyn on 05/07 OG tube placed given distention, clamped on 05/09/2025, PICC line placed 05/10, started TPN OG tube d/c 05/11, s/p small bowel series with gastrogaffin and resolution of SBO Plan: full liquid diet as tolerated. Zosyn 3.375 gm q6hr (05/07- )Intend for 10 day course Cefoxitin 2 gm q6hr (05/01-05/07) Doxycycline (05/03-05/08) zofran q4hr metaclopromide 10 mg IV qd Encourage ambulation encourage use of IS chest PT for help with phlegm expectoration Pain/Sleep Managment pt prefers to not be confused, and avoid narcotics IV APAP q6hr marilu x1 morphine 2mg qhs x1 benydryl 12.5 qhs Supplements Zinc 220 qd Vit C 500 BID multivitamin liquid 10 ml qd Consults surgery consulted, appreciate recs, post op dietitian consulted, appreciate recs Hypertension Patient currently normotensive Plan: Hydralazine every 6 hours as needed for SBP over 170 consider amlodipine 5 if htn persists Continue to monitor GIOVANA - resolved Baseline Cr 0.8, 1.3-->1.1 likely prerenal 2/2 diminished po intake BPH with urinary retention follows with [facility] home tamsulosin 0.4 qd , holding given npo pt reports that he is able to void in small increments Plan bladder scan prn and straight cath as needed >300cc voiding appropriately HLD hold home atorvastatin 40 qhs Tobacco Use Disorder BL Pulmonary Nodules - stable CT chest: Bilateral pulmonary nodules dating to CT chest March 29, 2023- Stable bilateral subcentimeter pulmonary nodules Chest x-ray on 05/03/2025 showed mild hypoventilation noted with interval development of mild to moderate bibasilar opacities since prior exam, which could represent a combination of aspiration/pneumonia and dependent atelectasis. Plan -continue outpatient f/u with low dose cts -discussed smoking cessation, pt not interested, will provide info on cessation if interested. Mild Normocytic Anemia hgb stable Appears to be a chronic issue Plan: No direct intervention at this time Dispo: Medsurg, continuing on IV abx, and iv pain mgmt, PICC line placed and TPN started, pending small bowel series. Diet: full liquid , on tpn Bowel Reg: n/a high grade obstruction VTE ppx: SCD GI ppx: not indicated Code status: FULL Plan discussed with my attending Dr. Jorge and my senior Dr. Cheo Morris MD PGY1 Attending Provider Attestation/Addendum I have examined the patient, reviewed labs and imaging findings, discussed the case with the resident(s), and reviewed entered orders. I agree with the plan of care as outlined in this note, with these additional summaries/recommendations: Small bowel series negative for obstruction, abdomen soft. Will initiate patient on liquid diet at this time and advance as tolerated. Continue to monitor clinically for signs of obstruction or intra-abdominal complications, however stable at this time. Edmundo Jorge MD
[2025-05-12 09:00] LABS: Alanine Aminotransferase 30 U/L (10-49); Albumin, Serum 3.1 gm/dL (3.4-4.8); Albumin/Globulin Ratio 1.5 (1.2-2.2); Alkaline Phosphatase 86 U/L (46-116); Anion Gap 8 (7-16); Aspartate Amino Transferase 25 U/L (0-34); BUN/Creatinine Ratio 17 Ratio (12-20); Bilirubin,Total 0.5 mg/dL (0.3-1.2); Blood Urea Nitrogen 15 mg/dL (9-23); Calcium 7.9 mg/dL (8.3-10.6); Calcium (Corrected) 8.6 mg/dL (8.5-10.1); Carbon Dioxide 25.0 mMol/L (20.0-31.0); Chloride 107 mMol/L (98-107); Creatinine (Component) 0.9 mg/dL (0.6-1.3); Estimated Creatinine Clearance 62.2 mL/min (>60); Globulin 2.1 gm/dL (2.3-3.5); Glucose 132 mg/dL (74-106); Osmolality,Calculated 282 (275-295); Potassium 4.2 mMol/L (3.4-5.1); Sodium 140 mMol/L (136-145); Total Protein 5.2 gm/dL (5.7-8.2); eGFR > 60 See Note
--- NOTE | 2025-05-12 13:40 | PD.SURPROG ---
Documentation for date of: 05/12/25 Subjective Subjective Narrative: Patient is seen and examined. He is resting comfortably. He tolerated full liquids without nausea or vomiting and had bowel movement Exam Vital Signs Temp Pulse Resp BP Pulse Ox O2 Del Method O2 Flow Rate 97.6 F 85 18 113/63 100 Room Air 1 05/12/25 11:55 05/12/25 13:06 05/12/25 11:55 05/12/25 11:55 05/12/25 11:55 05/12/25 11:55 05/12/25 04:00 Constitutional Constitutional: no acute distress Routine Abdominal Exam Comments: Abdomen is soft and mildly distended. Incision is clean, dry and intact. Bowel sounds are present and active Assessment & Plan Assessment Additional comments: Postop day #11 status post partial small bowel resection, cholecystectomy and appendectomy. Small bowel series did not show evidence of bowel obstruction or leakage of contrast from the anastomosis Plan Patient was started on full liquids. Will keep him on full liquids today, if he continues to tolerate we will start weaning TPN tomorrow PROCEDURES: Procedures Exploratory laparotomy, partial small bowel resection with anastomosis Cholecystectomy Appendectomy
[2025-05-12] MEDS: DOCUSATE SOD LIQD 100 MG/10 ML UDC PO (13:47)
[2025-05-12] MEDS: MORPHINE SULF INJ 4 MG/ML VIAL 2 MG IVP (22:07)
[2025-05-13] VITALS (9 sets, daily range): BP systolic 111–133; BP diastolic 62–78; PULSE 71–110; RESP 17–96; TEMP 36.1–37.2; O2SAT 92–98; BMI 17.4
[2025-05-13] MEDS: METOCLOPRAMIDE INJ 5 MG/ML VIAL 2 ML 10 MG IVP ×4 (00:42→17:50)
[2025-05-13] MEDS: PIPER/TAZO 3.375 GM PREMIX 3.375 GM/50 ML BAG IV ×3 (05:16→21:28)
[2025-05-13 05:28] LABS: Basophils # (Auto) 0.0 Thou/mm3 (0.0-0.2); Basophils % (Auto) 0 % (0-2.5); Eosinophils # (Auto) 0.1 Thou/mm3 (0.0-0.5); Eosinophils % (Auto) 1 % (0-10); Hematocrit 25.5 % (41.0-53.0); Immature Granulocytes Auto 0.18 Thou/mm3 (0.00-0.00); Lymphocytes # (Auto) 1.3 Thou/mm3 (1.0-4.8); Lymphocytes % (Auto) 12 % (10-50); Mean Corpuscular HGB Conc 32.9 g/dl (31.0-37.0); Mean Corpuscular Hemoglobin 31.3 pg (25.0-35.0); Mean Corpuscular Volume 95 fL (80-100); Monocytes # (Auto) 0.8 Thou/mm3 (0.0-0.8); Monocytes % (Auto) 7 % (0-12); Neutrophils # (Auto) 8.5 Thou/mm3 (1.8-7.7); Neutrophils % (Auto) 78 % (37-80); Nucleated Red Blood Cell # 0.00 Thou/mm3 (0.00-0.00); Nucleated Red Blood Cell % 0 /100 WBC (0); Platelet Count 510 Thou/mm3 (140-440); RDW Standard Deviation 49.4 fL (35.1-43.9); Red Blood Count 2.68 Miln/mm3 (4.50-5.90); White Blood Count 10.8 Thou/mm3 (3.8-10.6)
[2025-05-13 05:50] LABS: Hemoglobin 8.4 g/dL (13.5-16.0)
[2025-05-13 05:54] LABS: Alanine Aminotransferase 32 U/L (10-49); Albumin, Serum 3.1 gm/dL (3.4-4.8); Albumin/Globulin Ratio 1.3 (1.2-2.2); Alkaline Phosphatase 85 U/L (46-116); Anion Gap 8 (7-16); Aspartate Amino Transferase 28 U/L (0-34); BUN/Creatinine Ratio 18 Ratio (12-20); Bilirubin,Total 0.7 mg/dL (0.3-1.2); Blood Urea Nitrogen 18 mg/dL (9-23); Calcium 8.2 mg/dL (8.3-10.6); Calcium (Corrected) 8.9 mg/dL (8.5-10.1); Carbon Dioxide 25.6 mMol/L (20.0-31.0); Chloride 104 mMol/L (98-107); Creatinine (Component) 1.0 mg/dL (0.6-1.3); Estimated Creatinine Clearance 56.0 mL/min (>60); Globulin 2.3 gm/dL (2.3-3.5); Glucose 132 mg/dL (74-106); Magnesium 1.9 mg/dL (1.6-2.6); Osmolality,Calculated 279 (275-295); Phosphorous 3.6 mg/dL (2.4-5.1); Potassium 4.3 mMol/L (3.4-5.1); Sodium 138 mMol/L (136-145); Total Protein 5.4 gm/dL (5.7-8.2); eGFR > 60 See Note
[2025-05-13] MEDS: HYDROmorphone INJ 2 MG/ML VIAL 1 MG IVP (09:42)
[2025-05-13] MEDS: DOCUSATE SOD LIQD 100 MG/10 ML UDC PO ×2 (09:43→21:28)
--- NOTE | 2025-05-13 10:28 | ESPR_ITS ---
<Statement entered by Madhuri Grider MD - 05/13/25 21:02> Patient is seen at bedside, complains of mild abdominal pain with some distention. However patient continues to have bowel movement and is tolerating full liquid diet. Will continue to work on advancing diet slowly for now we will continue PPN as were advancing diet. Incision site is clean and dry. No discharge is noted. Patient is encouraged to get out of bed and walk around the room with assistance. Patient was seen and examined by me personally. I have directly supervised and reviewed documentation by the team resident and agree with its findings. ------- Plan of care was discussed with the attending, Dr. Luisito Grider, PGY-2 Documentation for date of: 05/13/25 Subjective Subjective Interval history: patient seen and examined at bedside per Dr. Weeks, wean TPN to 40 so pt has increased appetitie continues to have active bowel sounds and passing gas pt hesitant to eat but encouraged to bring soups from home Exam Vital Signs Temp Pulse Resp BP Pulse Ox O2 Del Method O2 Flow Rate 97.8 F 110 H 18 111/64 94 L Room Air 1 05/13/25 08:00 05/13/25 10:13 05/13/25 08:00 05/13/25 08:00 05/13/25 08:00 05/13/25 04:00 05/12/25 04:00 Narrative Exam GENERAL: no acute distress, AAO x3, laying in bed, fatigued, less irritable than prior HEENT: Head AT/ NC. Mucous membranes dry. PERRL. NECK: Supple, no lymphadenopathy, no carotid bruits. CARDIOVASCULAR: RRR. Normal S1/S2, No m/r/g. No pitting edema of bilateral LEs. RESPIRATORY: lungs clear with some diminishe sounds in the lung bases, satting well on room air GASTROINTESTINAL: Abdomen soft, with midline incision closed with pato, , and some serosanguenous fluid weaping from inferior aspect of wound, no puralence noted, 4x[address] at the inferior boarder. normoactive bowel sounds. tender but no rebound no guarding on exam MUSCULOSKELETAL:? No cyanosis or edema, no visible joint swelling. arthritic hand joints, picc line in place in RUE NEUROLOGICAL: CN II-XII grossly intact. No focal deficits. Sensation intact, symmetric. PSYCHIATRIC: Awake and alert, not agitated, normal mood and affect. SKIN: No obvious rashes, no jaundice, normal turgor. Objective Labs 05/17/25 04:10 05/17/25 04:10 Labs: Laboratory Results - last 24 hr 05/13/25 05:12 WBC 10.8 H D RBC 2.68 L Hgb 8.4 L Hct 25.5 L MCV 95 MCH 31.3 MCHC 32.9 RDW Std Deviation 49.4 H Plt Count 510 H D Neut % (Auto) 78 Lymph % (Auto) 12 [place] % (Auto) 7 Eos % (Auto) 1 Baso % (Auto) 0 Neut # (Auto) 8.5 H Lymph # (Auto) 1.3 [place] # (Auto) 0.8 Eos # (Auto) 0.1 Baso # (Auto) 0.0 Immature Gran # (Auto) 0.18 H Absolute Nucleated RBC 0.00 Immature Gran % 2 H Nucleated RBC % 0 Sodium 138 Potassium 4.3 Chloride 104 Carbon Dioxide 25.6 Anion Gap 8 BUN 18 Creatinine 1.0 Estim Creat Clear Calc 56.0 L eGFR > 60 BUN/Creatinine Ratio 18 Glucose 132 H Calculated Osmolality 279 Calcium 8.2 L Corrected Calcium 8.9 Phosphorus 3.6 Magnesium 1.9 Total Bilirubin 0.7 AST 28 ALT 32 Alkaline Phosphatase 85 Total Protein 5.4 L Albumin 3.1 L Globulin 2.3 Albumin/Globulin Ratio 1.3 Quality Measures Quality Measures VTE prophylaxis Advance care planning discussed with:: patient Assessment & Plan Assessment Current Active Medications: Generic Name Dose Route Start Last Admin Trade Name Madie PRN Reason Stop Dose Admin Acetaminophen 650 mg 05/06/25 12:19 Acetaminophen 325 Mg Tablet PO 06/05/25 12:18 Q6HR PRN PAIN 1-6 (mild-mod Docusate Sodium 100 mg 05/12/25 13:45 05/13/25 09:43 Docusate Sod Liqd 100 Mg/10 Ml Udc PO 06/11/25 13:44 100 mg BID MARILU Administration Protocol Hydralazine HCl 10 mg 05/05/25 14:53 05/06/25 20:30 Hydralazine Inj 20 Mg/Ml Vial IVP 06/04/25 12:59 10 mg Q6HR PRN Administration SBP >170 Fat Emulsion Intravenous 500 mls @ 32 mls/hr 05/07/25 18:00 05/11/25 17:59 Intralipid 20% Iv IV 06/06/25 17:59 32 mls/hr [email or web address] MARILU Administration Piperacillin/Tazobactam/Dextrose 3.375 gm in 50 mls @ 12.5 mls/hr 05/07/25 22:00 05/13/25 05:16 Zosyn IV 05/14/25 21:59 12.5 mls/hr Q8HR MARILU Administration Protocol Promethazine HCl 25 mg/ Sodium 51 mls @ 2.5 mls/min 05/09/25 11:31 Chloride IV 06/08/25 11:30 Q6HR PRN NAUSEA OR VOMITING Protocol Calcium Gluconate 1 gm/ 2,020 mls @ 65 mls/hr 05/12/25 18:00 05/12/25 18:09 Multivitamins/Minerals 10 ml/ IV 05/13/25 17:59 65 mls/hr Amino Acids/Electrolytes .Q24H MARILU Administration Insulin Human Regular 0 unit 05/06/25 18:00 05/11/25 23:44 Insulin Hum Regular 1 Unit/0.01 Ml (Per Unit) SC 06/05/25 17:59 2 unit Q6HR PRN Administration GLYCEMIC MANAGEMENT ON PN Protocol Metoclopramide HCl 10 mg 05/07/25 12:00 05/13/25 05:16 Metoclopramide Inj 5 Mg/Ml Vial 2 Ml IVP 06/06/25 11:59 10 mg Q6HR MARILU Administration Protocol Pharmacy Consult 1 each 05/05/25 10:29 Pha To Consult Parenteral Nutr 1 Each Each XX 06/04/25 10:28 PRN PRN CONSULT Plan Mr. Danielle is a 70 year old gentleman with hx of BPH with urinary retention, HLD, with no hx of prior abdominal surgeries who was found to have dilated loops of small bowel on CTAP, admitted for SBO, NPO with NG tube in place to LIS. s/p ex lap and appendectomy and cholecystectomy.on tpn, sp small bowel series with gastrogaffin and resolution of sbo on xray imaging, weaning tpn SBO s/p ex lap - resolved s/p appendectomy s/p cholecystectomy atelectesis and BL pneumonia - PNA improving Leukocytosis downtrending hyperbillirubenima- resolved Transaminitis- resolved Ddx sbo vs mesinteric ischemia vs pancreatitis vs malignancy CTAP Tiny nonobstructing right renal calculi fluid distended small bowel loops, consider early small bowel obstruction GB US: No evidence for cholelithiasis, acute cholecystitis or biliary ductal obstruction. 05/08: CTAP with Prominently fluid and air distended small bowel loops, Hx course: Failed upper gi series with gastrogaffin. post exlap, on ppn, tolerating clears and fulls, but not yet ready to wean the ppn given not meeting caloric needs with PO intake leukocytosis persists, changed abx to broader coverage with zosyn on 05/07 OG tube placed given distention, clamped on 05/09/2025, PICC line placed 05/10, started TPN OG tube d/c 05/11, s/p small bowel series with gastrogaffin and resolution of SBO Plan: full liquid diet as tolerated. Wean TPN to 40 Zosyn 3.375 gm q6hr (05/07- )Intend for 10 day course (end 05/16) Cefoxitin 2 gm q6hr (05/01-05/07) Doxycycline (05/03-05/08) zofran q4hr metaclopromide 10 mg IV qd colace qd Encourage ambulation encourage use of IS chest PT for help with phlegm expectoration Pain/Sleep Managment pt prefers to not be confused, and avoid narcotics IV APAP q6hr marilu x1 morphine 2mg qhs x1 benydryl 12.5 qhs Supplements Zinc 220 qd Vit C 500 BID multivitamin liquid 10 ml qd Consults surgery consulted, appreciate recs, post op dietitian consulted, appreciate recs Hypertension Patient currently normotensive Plan: Hydralazine every 6 hours as needed for SBP over 170 consider amlodipine 5 if htn persists Continue to monitor GIOVANA - resolved Baseline Cr 0.8, 1.3-->1.1 likely prerenal 2/2 diminished po intake BPH with urinary retention follows with [facility] home tamsulosin 0.4 qd , holding given npo pt reports that he is able to void in small increments Plan bladder scan prn and straight cath as needed >300cc voiding appropriately HLD hold home atorvastatin 40 qhs Tobacco Use Disorder BL Pulmonary Nodules - stable CT chest: Bilateral pulmonary nodules dating to CT chest March 29, 2023- Stable bilateral subcentimeter pulmonary nodules Chest x-ray on 05/03/2025 showed mild hypoventilation noted with interval development of mild to moderate bibasilar opacities since prior exam, which could represent a combination of aspiration/pneumonia and dependent atelectasis. Plan -continue outpatient f/u with low dose cts -discussed smoking cessation, pt not interested, will provide info on cessation if interested. Mild Normocytic Anemia hgb stable Appears to be a chronic issue Plan: No direct intervention at this time Dispo: Medsurg, continuing on IV abx, and iv pain mgmt, PICC line placed and TPN initiated, now weaning tpn and advancing diet as tolerated Diet: full liquid , on tpn Bowel Reg: colace VTE ppx: SCD GI ppx: not indicated Code status: FULL Plan discussed with my attending Dr. Jorge and my senior Dr. Cheo Morris MD PGY1 Attending Provider Attestation/Addendum Patient seen and examined at bedside with resident. Agree with assessment and plan as documented above. Edmundo Jorge MD
--- NOTE | 2025-05-13 11:44 | PC.NURSE ---
DR. CHOWDHURY AT BEDSIDE ROUNDING ON PT, VORB: TURN DOWN TPN TO 40. ORDER RECEIVED, READ BACK AND CARRIED OUT.
--- NOTE | 2025-05-13 11:47 | PC.NURSE ---
DR. TURNER MADE AWARE OF DR. CHOWDHURY TPN CHANGE TO 40ML/HR. NO NEW ORDERS GIVEN.
--- NOTE | 2025-05-13 11:51 | PD.SURPROG ---
Documentation for date of: 05/13/25 Subjective Subjective Narrative: Patient is seen and examined. He tolerated full liquids without nausea or vomiting. He continues to have bowel movements Exam Vital Signs Temp Pulse Resp BP Pulse Ox O2 Del Method O2 Flow Rate 97.8 F 110 H 18 111/64 94 L Room Air 1 05/13/25 08:00 05/13/25 10:13 05/13/25 08:00 05/13/25 08:00 05/13/25 08:00 05/13/25 04:00 05/12/25 04:00 Constitutional Constitutional: no acute distress Routine Abdominal Exam Comments: Abdomen is soft and mildly distended. Incision is clean, dry and intact Assessment & Plan Assessment Additional comments: Postop day #12 status post partial small bowel resection, cholecystectomy and appendectomy. Plan Continue full liquids and Ensure supplements. Decrease TPN rate to 40 mL an hour. If he continues to tolerate liquids will advance to soft diet tomorrow and wean TPN to off PROCEDURES: Procedures Exploratory laparotomy, partial small bowel resection with anastomosis Cholecystectomy Appendectomy
[2025-05-13] MEDS: INSULIN HUM REGULAR 1 UNIT/0.01 ML (PER UNIT) SC (13:44)
--- NOTE | 2025-05-13 15:55 | PC.SS ---
follow up note: Advancing diet. Patient is working with PT. SS followed up with d/c options with patient. Patient prefers to return home with services. PcP: [facility]. SS spoke to patient's daughter, Jahaira and she confirmed d/c plans. New # Jahaira Garber,
[2025-05-13] MEDS: ACETAMINOPHEN 325 MG TABLET 650 MG PO (17:46)
[2025-05-14] VITALS (9 sets, daily range): BP systolic 112–123; BP diastolic 65–76; PULSE 81–96; RESP 15–100; TEMP 36.1–36.7; O2SAT 93–99; BMI 17.4
[2025-05-14] MEDS: METOCLOPRAMIDE INJ 5 MG/ML VIAL 2 ML 10 MG IVP ×2 (01:01→05:17)
[2025-05-14] MEDS: ACETAMINOPHEN 325 MG TABLET 650 MG PO ×2 (01:05→08:05)
--- NOTE | 2025-05-14 05:02 | PC.NURSE ---
Pt's blood sugar 402/405, Dr. Dias was made aware, give 6 units of regular insulin per Dr. Dias.
[2025-05-14] MEDS: INSULIN HUM REGULAR 1 UNIT/0.01 ML (PER UNIT) SC (05:12)
[2025-05-14] MEDS: PIPER/TAZO 3.375 GM PREMIX 3.375 GM/50 ML BAG IV ×3 (05:16→22:18)
--- NOTE | 2025-05-14 05:26 | PC.NURSE ---
blood sugar 405, 6 units of regular insulin given following Dr. Dias's orders.
[2025-05-14 05:45] LABS: Basophils # (Auto) 0.0 Thou/mm3 (0.0-0.2); Basophils % (Auto) 0 % (0-2.5); Eosinophils # (Auto) 0.1 Thou/mm3 (0.0-0.5); Eosinophils % (Auto) 0 % (0-10); Hematocrit 26.0 % (41.0-53.0); Immature Granulocytes Auto 0.20 Thou/mm3 (0.00-0.00); Lymphocytes # (Auto) 1.4 Thou/mm3 (1.0-4.8); Lymphocytes % (Auto) 12 % (10-50); Mean Corpuscular HGB Conc 32.7 g/dl (31.0-37.0); Mean Corpuscular Hemoglobin 32.1 pg (25.0-35.0); Mean Corpuscular Volume 98 fL (80-100); Monocytes # (Auto) 0.8 Thou/mm3 (0.0-0.8); Monocytes % (Auto) 7 % (0-12); Neutrophils # (Auto) 8.9 Thou/mm3 (1.8-7.7); Neutrophils % (Auto) 79 % (37-80); Nucleated Red Blood Cell # 0.00 Thou/mm3 (0.00-0.00); Nucleated Red Blood Cell % 0 /100 WBC (0); Platelet Count 567 Thou/mm3 (140-440); RDW Standard Deviation 52.9 fL (35.1-43.9); Red Blood Count 2.65 Miln/mm3 (4.50-5.90); White Blood Count 11.3 Thou/mm3 (3.8-10.6)
[2025-05-14 05:59] LABS: Hemoglobin 8.5 g/dL (13.5-16.0)
[2025-05-14 06:15] LABS: Alanine Aminotransferase 42 U/L (10-49); Albumin, Serum 3.2 gm/dL (3.4-4.8); Albumin/Globulin Ratio 1.2 (1.2-2.2); Alkaline Phosphatase 101 U/L (46-116); Anion Gap 9 (7-16); Aspartate Amino Transferase 37 U/L (0-34); BUN/Creatinine Ratio 18 Ratio (12-20); Bilirubin,Total 0.6 mg/dL (0.3-1.2); Blood Urea Nitrogen 18 mg/dL (9-23); Calcium 8.7 mg/dL (8.3-10.6); Calcium (Corrected) 9.3 mg/dL (8.5-10.1); Carbon Dioxide 24.9 mMol/L (20.0-31.0); Chloride 101 mMol/L (98-107); Creatinine (Component) 1.0 mg/dL (0.6-1.3); Estimated Creatinine Clearance 50.3 mL/min (>60); Globulin 2.6 gm/dL (2.3-3.5); Magnesium 2.0 mg/dL (1.6-2.6); Osmolality,Calculated 290 (275-295); Phosphorous 5.1 mg/dL (2.4-5.1); Potassium 4.7 mMol/L (3.4-5.1); Sodium 135 mMol/L (136-145); Total Protein 5.8 gm/dL (5.7-8.2); eGFR > 60 See Note
[2025-05-14 06:19] LABS: Glucose 426 mg/dL (74-106)
--- NOTE | 2025-05-14 06:37 | PC.NURSE ---
Lab called to report that pt's blood glucose was 426, critical lab was reported to Dr. Arun Md ordered to give 8 units of regular insulin but were not given since finger stick blood sugar was 115. aware and okay to hold the 8 units of regular insulin.
--- NOTE | 2025-05-14 07:55 | ESPR_ITS ---
<Statement entered by Melanie Wagner MD - 05/20/25 15:18> I reviewed above note and agree with findings and plans. I have also personally examined the patient with medicine team and went over assessment and plan with medical team including learning and development intern and resident physician. <Statement entered by Madhuri Grider MD - 05/14/25 18:36> Pt is seen at bedside, reports to feeling better. Pt has a BM passing gas, incision site is clean and dry. Pt is tolerating oral diet well. Per surgery recommendations will DC PPN, and closely monitor as pt. pt continues to advance diet, will anticipate discharge in 1-2 days. Pt is encouraged to continue ambulation. Labs did show glucose to be elevated however, the labs were drawn where PPN is running. Bedside finger stick is WNL. Patient was seen and examined by me personally. I have directly supervised and reviewed documentation by the team resident and agree with its findings. ------- Plan of care was discussed with the attending, Dr. Bernard Grider, PGY-2 Documentation for date of: 05/14/25 Subjective Subjective Interval history: patient seen and examined at bedside reports feeling better he had BM yesterday evening his daughters will be visiting this evening and is willing to ambulate or sit and chair when they are present Mickysandra monahans d/c tpn and continue with po intake no nausea and vomiting am triglycerides pt was having ?elevated blood glucose, consider whether labs were drawn from tpn side /picc. Exam Vital Signs Temp Pulse Resp BP Pulse Ox O2 Del Method O2 Flow Rate 97.1 F 87 18 117/72 93 L Room Air 1 05/14/25 04:00 05/14/25 06:57 05/14/25 06:57 05/14/25 04:00 05/14/25 04:00 05/14/25 00:00 05/12/25 04:00 Narrative Exam GENERAL: no acute distress, AAO x3, laying in bed,more alert and less fatigued than prior. HEENT: Head AT/ NC. Mucous membranes dry. PERRL. temporal wasting NECK: Supple, no lymphadenopathy, no carotid bruits. CARDIOVASCULAR: RRR. Normal S1/S2, No m/r/g. No pitting edema of bilateral LEs. RESPIRATORY: lungs clear with some diminishe sounds in the lung bases, satting well on room air GASTROINTESTINAL: Abdomen soft, with midline incision closed with pato, , and some serosanguenous fluid weaping from inferior aspect of wound, no puralence noted, 4x4 [address] at the inferior boarder. normoactive bowel sounds. tender but no rebound no guarding on exam less overall discomfort MUSCULOSKELETAL:? No cyanosis or edema, no visible joint swelling. arthritic hand joints, picc line in place in RUE NEUROLOGICAL: CN II-XII grossly intact. No focal deficits. Sensation intact, symmetric. PSYCHIATRIC: Awake and alert, not agitated, normal mood and affect. SKIN: No obvious rashes, no jaundice, normal turgor. Objective Labs 05/14/25 04:53 05/14/25 04:53 Labs: Laboratory Results - last 24 hr 05/14/25 04:53 WBC 11.3 H RBC 2.65 L Hgb 8.5 L Hct 26.0 L MCV 98 MCH 32.1 MCHC 32.7 RDW Std Deviation 52.9 H Plt Count 567 H D Neut % (Auto) 79 Lymph % (Auto) 12 [place] % (Auto) 7 Eos % (Auto) 0 Baso % (Auto) 0 Neut # (Auto) 8.9 H Lymph # (Auto) 1.4 [place] # (Auto) 0.8 Eos # (Auto) 0.1 Baso # (Auto) 0.0 Immature Gran # (Auto) 0.20 H Absolute Nucleated RBC 0.00 Immature Gran % 2 H Nucleated RBC % 0 Sodium 135 L Potassium 4.7 Chloride 101 Carbon Dioxide 24.9 Anion Gap 9 BUN 18 Creatinine 1.0 Estim Creat Clear Calc 50.3 L eGFR > 60 BUN/Creatinine Ratio 18 Glucose 426 H* D Calculated Osmolality 290 Calcium 8.7 Corrected Calcium 9.3 Phosphorus 5.1 Magnesium 2.0 Total Bilirubin 0.6 AST 37 H ALT 42 Alkaline Phosphatase 101 Total Protein 5.8 Albumin 3.2 L Globulin 2.6 Albumin/Globulin Ratio 1.2 Quality Measures Quality Measures VTE prophylaxis Advance care planning discussed with:: patient Assessment & Plan Assessment Current Active Medications: Generic Name Dose Route Start Last Admin Trade Name Freq PRN Reason Stop Dose Admin Acetaminophen 650 mg 05/06/25 12:19 05/14/25 01:05 Acetaminophen 325 Mg Tablet PO 06/05/25 12:18 650 mg Q6HR PRN Administration PAIN 1-6 (mild-mod Docusate Sodium 100 mg 05/12/25 13:45 05/13/25 21:28 Docusate Sod Liqd 100 Mg/10 Ml Udc PO 06/11/25 13:44 100 mg BID MARILU Administration Protocol Hydralazine HCl 10 mg 05/05/25 14:53 05/06/25 20:30 Hydralazine Inj 20 Mg/Ml Vial IVP 06/04/25 12:59 10 mg Q6HR PRN Administration SBP >170 Fat Emulsion Intravenous 500 mls @ 32 mls/hr 05/07/25 18:00 05/11/25 17:59 Intralipid 20% Iv IV 06/06/25 17:59 32 mls/hr [id number]@1800 MARILU Administration Piperacillin/Tazobactam/Dextrose 3.375 gm in 50 mls @ 12.5 mls/hr 05/07/25 22:00 05/14/25 05:16 Zosyn IV 05/14/25 21:59 12.5 mls/hr Q8HR MARILU Administration Protocol Promethazine HCl 25 mg/ Sodium 51 mls @ 2.5 mls/min 05/09/25 11:31 Chloride IV 06/08/25 11:30 Q6HR PRN NAUSEA OR VOMITING Protocol Calcium Gluconate 1 gm/ 2,022 mls @ 65 mls/hr 05/13/25 18:00 05/13/25 17:44 Multivitamins/Minerals 10 ml/ IV 05/14/25 17:59 40 mls/hr Magnesium Sulfate 1 gm/ Amino .Q24H MARILU Administration Acids/Electrolytes Protocol Insulin Human Regular 0 unit 05/06/25 18:00 05/14/25 05:12 Insulin Hum Regular 1 Unit/0.01 Ml (Per Unit) SC 06/05/25 17:59 6 unit Q6HR PRN Administration GLYCEMIC MANAGEMENT ON PN Protocol Metoclopramide HCl 10 mg 05/07/25 12:00 05/14/25 05:17 Metoclopramide Inj 5 Mg/Ml Vial 2 Ml IVP 06/06/25 11:59 10 mg Q6HR MARILU Administration Protocol Pharmacy Consult 1 each 05/05/25 10:29 Pha To Consult Parenteral Nutr 1 Each Each XX 06/04/25 10:28 PRN PRN CONSULT Plan Mr. Danielle is a 70 year old gentleman with hx of BPH with urinary retention, HLD, with no hx of prior abdominal surgeries who was found to have dilated loops of small bowel on CTAP, admitted for SBO, NPO with NG tube in place to [facility]. s/p ex lap and appendectomy and cholecystectomy.on tpn, sp small bowel series with gastrogaffin and resolution of sbo on xray imaging, weaning tpn SBO s/p ex lap - resolved s/p appendectomy s/p cholecystectomy atelectesis and BL pneumonia - PNA improving Leukocytosis downtrending hyperbillirubenima- resolved Transaminitis- resolved Ddx sbo vs mesinteric ischemia vs pancreatitis vs malignancy CTAP Tiny nonobstructing right renal calculi fluid distended small bowel loops, consider early small bowel obstruction GB US: No evidence for cholelithiasis, acute cholecystitis or biliary ductal obstruction. 05/08: CTAP with Prominently fluid and air distended small bowel loops, Hx course: Failed upper gi series with gastrogaffin. post exlap, on ppn, tolerating clears and fulls, but not yet ready to wean the ppn given not meeting caloric needs with PO intake leukocytosis persists, changed abx to broader coverage with zosyn on 05/07 OG tube placed given distention, clamped on 05/09/2025, PICC line placed 05/10, started TPN OG tube d/c 05/11, s/p small bowel series with gastrogaffin and resolution of SBO pending improved oral intake and increased activity with PT Plan: Regular diet with mech alteration d/c TPN 05/10-05/14 Zosyn 3.375 gm q6hr (05/07- )Intend for 10 day course (end 05/16) Cefoxitin 2 gm q6hr (05/01-05/07) Doxycycline (05/03-05/08) zofran q4hr metaclopromide 10 mg IV qd colace qd Encourage ambulation encourage use of IS chest PT for help with phlegm expectoration Pain/Sleep Managment pt prefers to not be confused, and avoid narcotics IV APAP q6hr marilu if pt requests pain meds, ok for po Supplements Zinc 220 qd Vit C 500 BID multivitamin liquid 10 ml qd Consults surgery consulted, appreciate recs, post op dietitian consulted, appreciate recs Protein Calorie Malnutrition 2/2 sbo now resolved (see above) BMI 17.4 Plan - encourage po intake - regular diet (ok for outside food that family brings) - dietitian consulted, appreciate recs - Ensure max with each meal Hypertension Patient currently normotensive Plan: Hydralazine every 6 hours as needed for SBP over 170 consider amlodipine 5 if htn persists Continue to monitor GIOVANA - resolved Baseline Cr 0.8, 1.3-->1.1 likely prerenal 2/2 diminished po intake BPH with urinary retention follows with [facility] home tamsulosin 0.4 qd , holding given npo pt reports that he is able to void in small increments Plan bladder scan prn and straight cath as needed >300cc voiding appropriately HLD hold home atorvastatin 40 qhs Tobacco Use Disorder BL Pulmonary Nodules - stable CT chest: Bilateral pulmonary nodules dating to CT chest March 29, 2023- Stable bilateral subcentimeter pulmonary nodules Chest x-ray on 05/03/2025 showed mild hypoventilation noted with interval development of mild to moderate bibasilar opacities since prior exam, which could represent a combination of aspiration/pneumonia and dependent atelectasis. Plan -continue outpatient f/u with low dose cts -discussed smoking cessation, pt not interested, will provide info on cessation if interested. Mild Normocytic Anemia hgb stable Appears to be a chronic issue Plan: No direct intervention at this time Dispo: Medsurg, continuing on IV abx and oral pain mgmt, d/c tpn, encourage oral intake and ambulation/movement as tolerated Diet: d/c tpn, regular diet Bowel Reg: colace VTE ppx: SCD GI ppx: not indicated Code status: FULL Plan discussed with my attending Dr. Wagner and my senior Dr. Cheo Morris MD PGY1
[2025-05-14] MEDS: DOCUSATE SOD LIQD 100 MG/10 ML UDC PO ×2 (08:05→22:18)
--- NOTE | 2025-05-14 09:34 | PD.SURPROG ---
Documentation for date of: 05/14/25 Subjective Subjective Narrative: Patient is seen and examined. Continues to improve clinically. He is tolerating full liquids without nausea or vomiting and having bowel movements Exam Vital Signs Temp Pulse Resp BP Pulse Ox O2 Del Method O2 Flow Rate 97.5 F 82 15 112/66 97 Room Air 1 05/14/25 08:00 05/14/25 08:00 05/14/25 08:00 05/14/25 08:00 05/14/25 08:00 05/14/25 08:00 05/12/25 04:00 Constitutional Constitutional: no acute distress Routine Abdominal Exam Comments: Abdomen is soft and mildly distended. Incision is clean, dry and intact Assessment & Plan Assessment Additional comments: Postop day #13 status post partial small bowel resection, cholecystectomy and appendectomy. Plan Advance to soft diet, wean TPN to off PROCEDURES: Procedures Exploratory laparotomy, partial small bowel resection with anastomosis Cholecystectomy Appendectomy
--- NOTE | 2025-05-14 09:34 | PC.NURSE ---
DR. CHOWDHURY AT BEDSIDE ROUNDING ON PT, POC DISCUSSED.
--- NOTE | 2025-05-14 16:35 | PC.PT ---
Patient is safe to ambulate to the bathroom and in the halls with a FWW and 1 staff assist. RN made aware.
[2025-05-15] VITALS (12 sets, daily range): BP systolic 92–124; BP diastolic 58–77; PULSE 70–96; RESP 16–99; TEMP 36.2–36.9; O2SAT 93–95; BMI 17.4
[2025-05-15] MEDS: ACETAMINOPHEN 325 MG TABLET 650 MG PO (01:07)
[2025-05-15 05:14] LABS: Basophils # (Auto) 0.0 Thou/mm3 (0.0-0.2); Basophils % (Auto) 0 % (0-2.5); Eosinophils # (Auto) 0.1 Thou/mm3 (0.0-0.5); Eosinophils % (Auto) 1 % (0-10); Hematocrit 28.0 % (41.0-53.0); Hemoglobin 9.2 g/dL (13.5-16.0); Immature Granulocytes Auto 0.11 Thou/mm3 (0.00-0.00); Lymphocytes # (Auto) 1.2 Thou/mm3 (1.0-4.8); Lymphocytes % (Auto) 12 % (10-50); Mean Corpuscular HGB Conc 32.9 g/dl (31.0-37.0); Mean Corpuscular Hemoglobin 31.7 pg (25.0-35.0); Mean Corpuscular Volume 97 fL (80-100); Monocytes # (Auto) 0.7 Thou/mm3 (0.0-0.8); Monocytes % (Auto) 7 % (0-12); Neutrophils # (Auto) 7.7 Thou/mm3 (1.8-7.7); Neutrophils % (Auto) 79 % (37-80); Nucleated Red Blood Cell # 0.00 Thou/mm3 (0.00-0.00); Nucleated Red Blood Cell % 0 /100 WBC (0); Platelet Count 524 Thou/mm3 (140-440); RDW Standard Deviation 51.5 fL (35.1-43.9); Red Blood Count 2.90 Miln/mm3 (4.50-5.90); White Blood Count 9.8 Thou/mm3 (3.8-10.6)
[2025-05-15 05:30] LABS: Alanine Aminotransferase 36 U/L (10-49); Albumin, Serum 3.4 gm/dL (3.4-4.8); Albumin/Globulin Ratio 1.3 (1.2-2.2); Alkaline Phosphatase 117 U/L (46-116); Anion Gap 10 (7-16); Aspartate Amino Transferase 30 U/L (0-34); BUN/Creatinine Ratio 17 Ratio (12-20); Bilirubin,Total 0.7 mg/dL (0.3-1.2); Blood Urea Nitrogen 19 mg/dL (9-23); Calcium 8.3 mg/dL (8.3-10.6); Calcium (Corrected) 8.8 mg/dL (8.5-10.1); Carbon Dioxide 26.2 mMol/L (20.0-31.0); Chloride 102 mMol/L (98-107); Creatinine (Component) 1.1 mg/dL (0.6-1.3); Estimated Creatinine Clearance 45.7 mL/min (>60); Globulin 2.6 gm/dL (2.3-3.5); Glucose 98 mg/dL (74-106); Magnesium 1.9 mg/dL (1.6-2.6); Osmolality,Calculated 277 (275-295); Phosphorous 3.2 mg/dL (2.4-5.1); Potassium 4.2 mMol/L (3.4-5.1); Sodium 138 mMol/L (136-145); Total Protein 6.0 gm/dL (5.7-8.2); Triglycerides 128 mg/dL (30-150); eGFR > 60 See Note
[2025-05-15] MEDS: PIPER/TAZO 3.375 GM PREMIX 3.375 GM/50 ML BAG IV ×3 (06:21→22:03)
--- NOTE | 2025-05-15 08:15 | ESPR_ITS ---
<Statement entered by Melanie Wagner MD - 05/20/25 15:21> I reviewed above note and agree with findings and plans. I have also personally examined the patient with medicine team and went over assessment and plan with medical team including sports apparel internship and resident physician. <Statement entered by Madhuri Grider MD - 05/15/25 22:21> Pt is seen at bedside, endorses to feeling much better. Pt is ambulating, having BM and tolerating oral diet. Pt is off of PPN. Will continue IV abx 1 more day and plan for discharge tomorrow. Patient was seen and examined by me personally. I have directly supervised and reviewed documentation by the team resident and agree with its findings. ------- Plan of care was discussed with the attending, Dr. Bernard Grider, PGY-2 Documentation for date of: 05/15/25 Subjective Subjective Interval history: pt ambulated yesterday to the nursing station with assistance from his daughters per surgery 10 day course of IV zosyn, last day 05/16 on regular diet, tolerating well nutrition recs worked with PT, ambulating with FWW Exam Vital Signs Temp Pulse Resp BP Pulse Ox O2 Del Method O2 Flow Rate 97.4 F 79 18 114/67 95 Room Air 1 05/15/25 08:00 05/15/25 08:00 05/15/25 08:00 05/15/25 08:00 05/15/25 08:00 05/15/25 04:00 05/12/25 04:00 Narrative Exam GENERAL: no acute distress, AAO x3, laying in bed HEENT: Head AT/ NC. Mucous membranes dry. PERRL. temporal wasting NECK: Supple, no lymphadenopathy, no carotid bruits. CARDIOVASCULAR: RRR. Normal S1/S2, No m/r/g. No pitting edema of bilateral LEs. RESPIRATORY: lungs clear with some diminishe sounds in the lung bases, satting well on room air GASTROINTESTINAL: Abdomen soft, with midline incision closed with pato, bowel sounds normoactive, tender but no rebound no guarding on exam MUSCULOSKELETAL:? No cyanosis or edema, no visible joint swelling. arthritic hand joints, picc line in place in RUE NEUROLOGICAL: CN II-XII grossly intact. No focal deficits. Sensation intact, symmetric. PSYCHIATRIC: Awake and alert, not agitated, normal mood and affect. SKIN: No obvious rashes, no jaundice, normal turgor. Objective Labs 05/15/25 04:30 05/15/25 04:30 Labs: Laboratory Results - last 24 hr 05/15/25 04:30 WBC 9.8 RBC 2.90 L Hgb 9.2 L Hct 28.0 L MCV 97 MCH 31.7 MCHC 32.9 RDW Std Deviation 51.5 H Plt Count 524 H D Neut % (Auto) 79 Lymph % (Auto) 12 [place] % (Auto) 7 Eos % (Auto) 1 Baso % (Auto) 0 Neut # (Auto) 7.7 Lymph # (Auto) 1.2 [place] # (Auto) 0.7 Eos # (Auto) 0.1 Baso # (Auto) 0.0 Immature Gran # (Auto) 0.11 H Absolute Nucleated RBC 0.00 Immature Gran % 1 H Nucleated RBC % 0 Sodium 138 Potassium 4.2 D Chloride 102 Carbon Dioxide 26.2 Anion Gap 10 BUN 19 Creatinine 1.1 Estim Creat Clear Calc 45.7 L eGFR > 60 BUN/Creatinine Ratio 17 Glucose 98 D Calculated Osmolality 277 Calcium 8.3 Corrected Calcium 8.8 Phosphorus 3.2 Magnesium 1.9 Total Bilirubin 0.7 AST 30 ALT 36 Alkaline Phosphatase 117 H Total Protein 6.0 Albumin 3.4 Globulin 2.6 Albumin/Globulin Ratio 1.3 Triglycerides 128 Quality Measures Quality Measures VTE prophylaxis Advance care planning discussed with:: patient Assessment & Plan Assessment Current Active Medications: Generic Name Dose Route Start Last Admin Trade Name Freq PRN Reason Stop Dose Admin Acetaminophen 650 mg 05/06/25 12:19 05/15/25 01:07 Acetaminophen 325 Mg Tablet PO 06/05/25 12:18 650 mg Q6HR PRN Administration PAIN 1-6 (mild-mod Docusate Sodium 100 mg 05/12/25 13:45 05/14/25 22:18 Docusate Sod Liqd 100 Mg/10 Ml Udc PO 06/11/25 13:44 100 mg BID MARILU Administration Protocol Hydralazine HCl 10 mg 05/05/25 14:53 05/06/25 20:30 Hydralazine Inj 20 Mg/Ml Vial IVP 06/04/25 12:59 10 mg Q6HR PRN Administration SBP >170 Piperacillin/Tazobactam/Dextrose 3.375 gm in 50 mls @ 12.5 mls/hr 05/07/25 22:00 05/15/25 06:21 Zosyn IV 05/16/25 21:59 12.5 mls/hr Q8HR MARILU Administration Protocol Promethazine HCl 25 mg/ Sodium 51 mls @ 2.5 mls/min 05/09/25 11:31 Chloride IV 06/08/25 11:30 Q6HR PRN NAUSEA OR VOMITING Protocol Insulin Human Regular 0 unit 05/06/25 18:00 05/14/25 05:12 Insulin Hum Regular 1 Unit/0.01 Ml (Per Unit) SC 06/05/25 17:59 6 unit Q6HR PRN Administration GLYCEMIC MANAGEMENT ON PN Protocol Metoclopramide HCl 10 mg 05/07/25 12:00 05/15/25 05:51 Metoclopramide Inj 5 Mg/Ml Vial 2 Ml IVP 06/06/25 11:59 Not Given Q6HR MARILU Protocol Pharmacy Consult 1 each 05/05/25 10:29 Pha To Consult Parenteral Nutr 1 Each Each XX 06/04/25 10:28 PRN PRN CONSULT Plan Mr. Danielle is a 70 year old gentleman with hx of BPH with urinary retention, HLD, with no hx of prior abdominal surgeries who was found to have dilated loops of small bowel on CTAP, admitted for SBO, NPO with NG tube in place to [facility]. s/p ex lap and appendectomy and cholecystectomy.on tpn, sp small bowel series with gastrogaffin and resolution of sbo on xray imaging,d/c tpn on regular diet. possible d/c tomorrow. SBO s/p ex lap - resolved s/p appendectomy s/p cholecystectomy atelectesis and BL pneumonia - PNA improving Leukocytosis downtrending hyperbillirubenima- resolved Transaminitis- resolved Ddx sbo vs mesinteric ischemia vs pancreatitis vs malignancy CTAP Tiny nonobstructing right renal calculi fluid distended small bowel loops, consider early small bowel obstruction GB US: No evidence for cholelithiasis, acute cholecystitis or biliary ductal obstruction. 05/08: CTAP with Prominently fluid and air distended small bowel loops, Hx course: Failed upper gi series with gastrogaffin. post exlap, on ppn, tolerating clears and fulls, but not yet ready to wean the ppn given not meeting caloric needs with PO intake leukocytosis persists, changed abx to broader coverage with zosyn on 05/07 OG tube placed given distention, clamped on 05/09/2025, PICC line placed 05/10, started TPN OG tube d/c 05/11, s/p small bowel series with gastrogaffin and resolution of SBO pending improved oral intake and increased activity with PT ambulated independently with FWW, Plan: Regular diet with mech alteration d/c TPN 05/10-05/14 Zosyn 3.375 gm q6hr (05/07- )Intend for 10 day course (end 05/16) Cefoxitin 2 gm q6hr (05/01-05/07) Doxycycline (05/03-05/08) zofran q4hr metaclopromide 10 mg IV qd colace qd Encourage ambulation encourage use of IS chest PT for help with phlegm expectoration Pain/Sleep Managment pt prefers to not be confused, and avoid narcotics IV APAP q6hr marilu if pt requests pain meds, ok for po Supplements Zinc 220 qd Vit C 500 BID multivitamin liquid 10 ml qd Consults surgery consulted, appreciate recs, post op dietitian consulted, appreciate recs Protein Calorie Malnutrition 2/2 sbo now resolved (see above) BMI 17.4 Plan - encourage po intake - regular diet (ok for outside food that family brings) - dietitian consulted, appreciate recs - Ensure max with each meal Hypertension Patient currently normotensive Plan: Hydralazine every 6 hours as needed for SBP over 170 consider amlodipine 5 if htn persists Continue to monitor GIOVANA - resolved Baseline Cr 0.8, 1.3-->1.1 likely prerenal 2/2 diminished po intake BPH with urinary retention follows with [facility] home tamsulosin 0.4 qd , pt reports that he is able to void in small increments Plan bladder scan prn and straight cath as needed >300cc voiding appropriately HLD hold home atorvastatin 40 qhs Tobacco Use Disorder BL Pulmonary Nodules - stable CT chest: Bilateral pulmonary nodules dating to CT chest March 29, 2023- Stable bilateral subcentimeter pulmonary nodules Chest x-ray on 05/03/2025 showed mild hypoventilation noted with interval development of mild to moderate bibasilar opacities since prior exam, which could represent a combination of aspiration/pneumonia and dependent atelectasis. Plan -continue outpatient f/u with low dose cts -discussed smoking cessation, pt not interested, will provide info on cessation if interested. Mild Normocytic Anemia hgb stable Appears to be a chronic issue Plan: No direct intervention at this time Dispo: Medsurg, continuing on IV abx and oral pain mgmt, , encourage oral intake and ambulation/movement as tolerated, last day of abx tomorrow Diet: regular diet with ensure supplementation Bowel Reg: colace VTE ppx: SCD GI ppx: not indicated Code status: FULL Plan discussed with my attending Dr. Wagner and my senior Dr. Cheo Morris MD PGY1
--- NOTE | 2025-05-15 08:21 | PD.SURPROG ---
Documentation for date of: 05/15/25 Subjective Subjective Narrative: Patient is seen and examined. He is resting comfortably. His pain continues to improve. He is tolerating soft diet without nausea or vomiting and continues to have bowel movement Exam Vital Signs Temp Pulse Resp BP Pulse Ox O2 Del Method O2 Flow Rate 97.4 F 79 18 114/67 95 Room Air 1 05/15/25 08:00 05/15/25 08:00 05/15/25 08:00 05/15/25 08:00 05/15/25 08:00 05/15/25 04:00 05/12/25 04:00 Constitutional Constitutional: no acute distress Routine Abdominal Exam Comments: Abdomen is soft and very minimally distended. Incision is clean, dry and intact Assessment & Plan Assessment Additional comments: Postop day #14 status post partial small bowel resection, cholecystectomy and appendectomy. Plan Advance to regular diet. Possible discharge home tomorrow if tolerating diet well and continues to have bowel movement PROCEDURES: Procedures Exploratory laparotomy, partial small bowel resection with anastomosis Cholecystectomy Appendectomy
[2025-05-15] MEDS: TAMSULOSIN HCL 0.4 MG CAPSULE PO (08:42)
[2025-05-15] MEDS: DOCUSATE SOD LIQD 100 MG/10 ML UDC PO (08:42)
[2025-05-15] MEDS: METOCLOPRAMIDE INJ 5 MG/ML VIAL 2 ML 10 MG IVP ×3 (12:17→23:54)
[2025-05-15] MEDS: GABAPENTIN 300 MG CAPSULE 600 MG PO (20:47)
[2025-05-15] MEDS: MELATONIN 3 MG TABLET 9 MG PO (20:47)
[2025-05-16] VITALS (11 sets, daily range): BP systolic 102–126; BP diastolic 61–79; PULSE 72–94; RESP 16–94; TEMP 36.2–37.2; O2SAT 95–97; BMI 17.6
[2025-05-16] MEDS: PIPER/TAZO 3.375 GM PREMIX 3.375 GM/50 ML BAG IV ×2 (05:15→14:00)
[2025-05-16] MEDS: METOCLOPRAMIDE INJ 5 MG/ML VIAL 2 ML 10 MG IVP ×3 (05:15→17:38)
[2025-05-16 05:55] LABS: Basophils # (Auto) 0.1 Thou/mm3 (0.0-0.2); Basophils % (Auto) 1 % (0-2.5); Eosinophils # (Auto) 0.0 Thou/mm3 (0.0-0.5); Eosinophils % (Auto) 0 % (0-10); Hematocrit 25.5 % (41.0-53.0); Immature Granulocytes Auto 0.09 Thou/mm3 (0.00-0.00); Lymphocytes # (Auto) 1.3 Thou/mm3 (1.0-4.8); Lymphocytes % (Auto) 14 % (10-50); Mean Corpuscular HGB Conc 32.5 g/dl (31.0-37.0); Mean Corpuscular Hemoglobin 31.3 pg (25.0-35.0); Mean Corpuscular Volume 96 fL (80-100); Monocytes # (Auto) 0.8 Thou/mm3 (0.0-0.8); Monocytes % (Auto) 8 % (0-12); Neutrophils # (Auto) 7.4 Thou/mm3 (1.8-7.7); Neutrophils % (Auto) 77 % (37-80); Nucleated Red Blood Cell # 0.00 Thou/mm3 (0.00-0.00); Nucleated Red Blood Cell % 0 /100 WBC (0); Platelet Count 502 Thou/mm3 (140-440); RDW Standard Deviation 49.9 fL (35.1-43.9); Red Blood Count 2.65 Miln/mm3 (4.50-5.90); White Blood Count 9.7 Thou/mm3 (3.8-10.6)
[2025-05-16 06:10] LABS: Alanine Aminotransferase < 7 U/L (10-49); Albumin, Serum 3.4 gm/dL (3.4-4.8); Albumin/Globulin Ratio 1.4 (1.2-2.2); Alkaline Phosphatase 118 U/L (46-116); Anion Gap 9 (7-16); Aspartate Amino Transferase 23 U/L (0-34); BUN/Creatinine Ratio 13 Ratio (12-20); Bilirubin,Total 0.7 mg/dL (0.3-1.2); Blood Urea Nitrogen 15 mg/dL (9-23); Calcium 8.8 mg/dL (8.3-10.6); Calcium (Corrected) 9.3 mg/dL (8.5-10.1); Carbon Dioxide 25.9 mMol/L (20.0-31.0); Chloride 102 mMol/L (98-107); Creatinine (Component) 1.2 mg/dL (0.6-1.3); Estimated Creatinine Clearance 41.9 mL/min (>60); Globulin 2.5 gm/dL (2.3-3.5); Glucose 91 mg/dL (74-106); Magnesium 1.9 mg/dL (1.6-2.6); Osmolality,Calculated 274 (275-295); Phosphorous 3.8 mg/dL (2.4-5.1); Potassium 4.1 mMol/L (3.4-5.1); Sodium 137 mMol/L (136-145); Total Protein 5.9 gm/dL (5.7-8.2); eGFR > 60 See Note
[2025-05-16 06:33] LABS: Hemoglobin 8.3 g/dL (13.5-16.0)
--- NOTE | 2025-05-16 07:56 | PD.RESDS ---
Planned Discharge Date 05/16/25 DS: Providers Provider Date of admission: 04/29/25 17:46 Primary care physician: Physician No Primary/Family Admitting Provider: Cynthia Rider DO Attending Provider on Admission: Melanie Wagner MD Consults: 04/30/25 15:01 Consult to General Surgery Routine Comment: unresolving sbo Consulting Provider: Elliot Weeks 05/03/25 10:58 Referral Physical Therapy Routine Comment: Physician Instructions: Attending Provider on DC: Cristin Morris MD Discharging Provider: Cristin Morris MD Hospital Course Hospital Course Hospital course: pt ambulated yesterday to the nursing station with assistance from his daughters per surgery 10 day course of IV zosyn, last day 05/16 on regular diet, tolerating well nutrition recs worked with PT, ambulating with FWW Time Spent with Patient Time attestation: Total time spent providing and/or coordinating discharge services: Exam Vital Signs Temp Pulse Resp BP Pulse Ox O2 Del Method O2 Flow Rate 97.7 F 79 18 109/67 95 Room Air 1 05/16/25 07:33 05/16/25 07:33 05/16/25 07:33 05/16/25 07:33 05/16/25 07:33 05/16/25 07:33 05/15/25 20:00 Discharge Plan Prescriptions/Referrals Prescriptions/Med Rec: No Action atorvastatin 40 mg Tablet 40 mg PO HS tamsulosin 0.4 mg Capsule 0.4 mg PO QDAY Qty: 30 0RF gabapentin 600 mg tablet 600 mg PO Q12H Patient Comments: TAKE 1/2 TABLET BY MOUTH EVERY MORNING AND 1 TABLET EVERY NIGHT Referrals: No Primary/Family,Physician [Primary Care Provider] Patient/Caregiver Discharge Instructions Print Language: Lithuanian
[2025-05-16] MEDS: TAMSULOSIN HCL 0.4 MG CAPSULE PO (08:31)
[2025-05-16] MEDS: GABAPENTIN 300 MG CAPSULE 600 MG PO ×2 (08:31→19:56)
[2025-05-16 08:37] LABS: INR 1.0 (0.9-1.3); Prothrombin Time 10.7 Seconds (9.0-12.2)
--- NOTE | 2025-05-16 09:48 | ESPR_ITS ---
<Statement entered by Melanie Wagner MD - 05/20/25 15:25> I reviewed above note and agree with findings and plans. I have also personally examined the patient with medicine team and went over assessment and plan with medical team including learning and development intern and resident physician. Documentation for date of: 05/16/25 Subjective Subjective Interval history: patient seen and examined at bedside daughters present, report concerns of desaturating during ambulation yesterday with PT f/u with PT, plan to work with pt again today, suspect that it was 2/2 cold fingers rather than true desat needs FWW at home remove picc line tomorow so that patient can have iv access. plan to d/c tomorrow Exam Vital Signs Temp Pulse Resp BP Pulse Ox O2 Del Method O2 Flow Rate 97.7 F 83 18 109/67 95 Room Air 1 05/16/25 07:33 05/16/25 08:00 05/16/25 07:33 05/16/25 07:33 05/16/25 07:33 05/16/25 07:33 05/15/25 20:00 Narrative Exam GENERAL: no acute distress, AAO x3, laying in bed HEENT: Head AT/ NC. Mucous membranes dry. PERRL. temporal wasting NECK: Supple, no lymphadenopathy, no carotid bruits. CARDIOVASCULAR: RRR. Normal S1/S2, No m/r/g. No pitting edema of bilateral LEs. RESPIRATORY: lungs clear with some diminished sounds in the lung bases, satting well on room air GASTROINTESTINAL: Abdomen soft, with midline incision closed with pato, bowel sounds normoactive, tender but no rebound no guarding on exam MUSCULOSKELETAL:? No cyanosis or edema, no visible joint swelling. arthritic hand joints, picc line in place in RUE NEUROLOGICAL: CN II-XII grossly intact. No focal deficits. Sensation intact, symmetric. PSYCHIATRIC: Awake and alert, not agitated, normal mood and affect. SKIN: No obvious rashes, no jaundice, normal turgor. Objective Labs 05/16/25 04:49 05/16/25 04:49 Labs: Laboratory Results - last 24 hr 05/16/25 04:49 WBC 9.7 RBC 2.65 L Hgb 8.3 L Hct 25.5 L MCV 96 MCH 31.3 MCHC 32.5 RDW Std Deviation 49.9 H Plt Count 502 H Neut % (Auto) 77 Lymph % (Auto) 14 [place] % (Auto) 8 Eos % (Auto) 0 Baso % (Auto) 1 Neut # (Auto) 7.4 Lymph # (Auto) 1.3 [place] # (Auto) 0.8 Eos # (Auto) 0.0 Baso # (Auto) 0.1 Immature Gran # (Auto) 0.09 H Absolute Nucleated RBC 0.00 Immature Gran % 1 H Nucleated RBC % 0 PT 10.7 INR 1.0 Sodium 137 Potassium 4.1 Chloride 102 Carbon Dioxide 25.9 Anion Gap 9 BUN 15 Creatinine 1.2 Estim Creat Clear Calc 41.9 L eGFR > 60 BUN/Creatinine Ratio 13 Glucose 91 Calculated Osmolality 274 L Calcium 8.8 Corrected Calcium 9.3 Phosphorus 3.8 Magnesium 1.9 Total Bilirubin 0.7 AST 23 ALT < 7 L Alkaline Phosphatase 118 H Total Protein 5.9 Albumin 3.4 Globulin 2.5 Albumin/Globulin Ratio 1.4 Quality Measures Quality Measures VTE prophylaxis Advance care planning discussed with:: patient and child Assessment & Plan Assessment Current Active Medications: Generic Name Dose Route Start Last Admin Trade Name Freq PRN Reason Stop Dose Admin Acetaminophen 650 mg 05/06/25 12:19 05/15/25 01:07 Acetaminophen 325 Mg Tablet PO 06/05/25 12:18 650 mg Q6HR PRN Administration PAIN 1-6 (mild-mod Docusate Sodium 100 mg 05/12/25 13:45 05/16/25 08:30 Docusate Sod Liqd 100 Mg/10 Ml Udc PO 06/11/25 13:44 Not Given BID ABRAHAM Protocol Gabapentin 600 mg 05/15/25 20:00 05/16/25 08:31 Gabapentin 300 Mg Capsule PO 06/14/25 19:59 600 mg Q12H ABRAHAM Administration Hydralazine HCl 10 mg 05/05/25 14:53 05/06/25 20:30 Hydralazine Inj 20 Mg/Ml Vial IVP 06/04/25 12:59 10 mg Q6HR PRN Administration SBP >170 Piperacillin/Tazobactam/Dextrose 3.375 gm in 50 mls @ 12.5 mls/hr 05/07/25 22:00 05/16/25 05:15 Zosyn IV 05/16/25 21:59 12.5 mls/hr Q8HR ABRAHAM Administration Protocol Promethazine HCl 25 mg/ Sodium 51 mls @ 2.5 mls/min 05/09/25 11:31 Chloride IV 06/08/25 11:30 Q6HR PRN NAUSEA OR VOMITING Protocol Insulin Human Regular 0 unit 05/06/25 18:00 05/14/25 05:12 Insulin Hum Regular 1 Unit/0.01 Ml (Per Unit) SC 06/05/25 17:59 6 unit Q6HR PRN Administration GLYCEMIC MANAGEMENT ON PN Protocol Melatonin 9 mg 05/15/25 21:00 05/15/25 20:47 Melatonin 3 Mg Tablet PO 06/14/25 20:59 9 mg HS ABRAHAM Administration Metoclopramide HCl 10 mg 05/07/25 12:00 05/16/25 05:15 Metoclopramide Inj 5 Mg/Ml Vial 2 Ml IVP 06/06/25 11:59 10 mg Q6HR ABRAHAM Administration Protocol Tamsulosin HCl 0.4 mg 05/15/25 09:00 05/16/25 08:31 Tamsulosin Hcl 0.4 Mg Capsule PO 06/14/25 08:59 0.4 mg QDAY ABRAHAM Administration Plan Mr. Danielle is a 70 year old gentleman with hx of BPH with urinary retention, HLD, with no hx of prior abdominal surgeries who was found to have dilated loops of small bowel on CTAP, admitted for SBO, NPO with NG tube in place to LIS. s/p ex lap and appendectomy and cholecystectomy.on tpn, sp small bowel series with gastrogaffin and resolution of sbo on xray imaging,d/c tpn on regular diet. plan to work with pt today again given c/f desaturation during ambulation, surgery cleared for d/c tomorrow. SBO s/p ex lap - resolved s/p appendectomy s/p cholecystectomy atelectesis and BL pneumonia - PNA improving Leukocytosis downtrending hyperbillirubenima- resolved Transaminitis- resolved Ddx sbo vs mesinteric ischemia vs pancreatitis vs malignancy CTAP Tiny nonobstructing right renal calculi fluid distended small bowel loops, consider early small bowel obstruction GB US: No evidence for cholelithiasis, acute cholecystitis or biliary ductal obstruction. 05/08: CTAP with Prominently fluid and air distended small bowel loops, Hx course: Failed upper gi series with gastrogaffin. post exlap, on ppn, tolerating clears and fulls, but not yet ready to wean the ppn given not meeting caloric needs with PO intake leukocytosis persists, changed abx to broader coverage with zosyn on 05/07 OG tube placed given distention, clamped on 05/09/2025, PICC line placed 05/10, started TPN OG tube d/c 05/11, s/p small bowel series with gastrogaffin and resolution of SBO pending improved oral intake and increased activity with PT ambulated independently with FWW, Plan: Regular diet with mech alteration d/c picc line tomorow after abx completed d/c TPN 05/10-05/14 Zosyn 3.375 gm q6hr (05/07-05/16 ) Cefoxitin 2 gm q6hr (05/01-05/07) Doxycycline (05/03-05/08) zofran q4hr metaclopromide 10 mg IV qd colace qd Encourage ambulation encourage use of IS chest PT for help with phlegm expectoration Pain/Sleep Managment pt prefers to not be confused, and avoid narcotics apap 650 po Supplements Zinc 220 qd Vit C 500 BID multivitamin liquid 10 ml qd Consults surgery consulted, appreciate recs, post op dietitian consulted, appreciate recs Protein Calorie Malnutrition 2/2 sbo now resolved (see above) BMI 17.4 Plan - encourage po intake - regular diet (ok for outside food that family brings) - dietitian consulted, appreciate recs - Ensure max with each meal Hypertension- well controlled Patient currently normotensive Plan: amlodipine 5 GIOVANA - resolved Baseline Cr 0.8, 1.3-->1.1 likely prerenal 2/2 diminished po intake BPH with urinary retention follows with [facility] home tamsulosin 0.4 qd , pt reports that he is able to void in small increments Plan bladder scan prn and straight cath as needed >300cc voiding appropriately HLD resume home atorvastatin 40 qhs Tobacco Use Disorder BL Pulmonary Nodules - stable CT chest: Bilateral pulmonary nodules dating to CT chest March 29, 2023- Stable bilateral subcentimeter pulmonary nodules Chest x-ray on 05/03/2025 showed mild hypoventilation noted with interval development of mild to moderate bibasilar opacities since prior exam, which could represent a combination of aspiration/pneumonia and dependent atelectasis. Plan -continue outpatient f/u with low dose cts -discussed smoking cessation, pt not interested, will provide info on cessation if interested. Mild Normocytic Anemia hgb stable Appears to be a chronic issue Plan: No direct intervention at this time Dispo: Medsurg, last day on IV abx and pending another day of , encourage oral intake and ambulation/movement as tolerated, last day of abx tomorrow Diet: regular diet with ensure supplementation Bowel Reg: colace VTE ppx: SCD GI ppx: not indicated Code status: FULL Plan discussed with my attending Dr. Bernard Morris MD PGY1
--- NOTE | 2025-05-16 10:29 | ESPR_ITS ---
Documentation for date of: 05/16/25 Subjective Subjective Narrative: Patient is seen and examined. He continues to improve clinically. He is eating and tolerating diet well without nausea or vomiting and having bowel movements Exam Vital Signs Temp Pulse Resp BP Pulse Ox O2 Del Method O2 Flow Rate 97.7 F 83 18 109/67 95 Room Air 1 05/16/25 07:33 05/16/25 08:00 05/16/25 07:33 05/16/25 07:33 05/16/25 07:33 05/16/25 07:33 05/15/25 20:00 Constitutional Constitutional: no acute distress Routine Abdominal Exam Comments: Abdomen is soft and mildly distended. Incision is clean, dry and intact Assessment & Plan Assessment Additional comments: Status post exploratory laparotomy with partial small bowel resection, c holecystectomy and appendectomy. He has remained afebrile, WBC is normal and clinically improving Plan May discharge home from surgical standpoint PROCEDURES: Procedures Exploratory laparotomy, partial small bowel resection with anastomosis Cholecystectomy Appendectomy
[2025-05-16] MEDS: ACETAMINOPHEN 325 MG TABLET 650 MG PO (11:04)
--- NOTE | 2025-05-16 15:56 | PC.SS ---
follow up note: PT recommends a walker for patient. Patient prefers to d/c home. Possible d/c Tuesday
[2025-05-16] MEDS: MELATONIN 3 MG TABLET 9 MG PO (20:00)
[2025-05-16] MEDS: DOCUSATE SOD LIQD 100 MG/10 ML UDC PO (20:00)
[2025-05-17] VITALS (7 sets, daily range): BP systolic 104–125; BP diastolic 67–79; PULSE 86–92; RESP 15–94; TEMP 36.2–37.2; O2SAT 92–96; BMI 17.7
[2025-05-17 05:37] LABS: Alanine Aminotransferase 23 U/L (10-49); Albumin, Serum 3.6 gm/dL (3.4-4.8); Albumin/Globulin Ratio 1.4 (1.2-2.2); Alkaline Phosphatase 127 U/L (46-116); Anion Gap 8 (7-16); Aspartate Amino Transferase 21 U/L (0-34); BUN/Creatinine Ratio 17 Ratio (12-20); Bilirubin,Total 0.5 mg/dL (0.3-1.2); Blood Urea Nitrogen 19 mg/dL (9-23); Calcium 8.4 mg/dL (8.3-10.6); Calcium (Corrected) 8.7 mg/dL (8.5-10.1); Carbon Dioxide 26.8 mMol/L (20.0-31.0); Chloride 104 mMol/L (98-107); Creatinine (Component) 1.1 mg/dL (0.6-1.3); Estimated Creatinine Clearance 46.3 mL/min (>60); Globulin 2.6 gm/dL (2.3-3.5); Glucose 103 mg/dL (74-106); Magnesium 2.0 mg/dL (1.6-2.6); Osmolality,Calculated 279 (275-295); Phosphorous 3.8 mg/dL (2.4-5.1); Potassium 3.9 mMol/L (3.4-5.1); Sodium 139 mMol/L (136-145); Total Protein 6.2 gm/dL (5.7-8.2); eGFR > 60 See Note
--- NOTE | 2025-05-17 07:37 | ESDS_ITS ---
<Statement entered by Melanie Wagner MD - 05/28/25 08:31> I reviewed above note and agree with findings and plans. I have also personally examined the patient with medicine team and went over assessment and plan with medical team including internal communications intern and resident physician. Planned Discharge Date 05/17/25 DS: Providers Provider Date of admission: 04/29/25 17:46 Primary care physician: Physician No Primary/Family Admitting Provider: Cynthia Rider DO Attending Provider on Admission: Melanie Wagner MD Consults: 04/30/25 15:01 Consult to General Surgery Routine Comment: unresolving sbo Consulting Provider: Elliot Weeks 05/03/25 10:58 Referral Physical Therapy Routine Comment: Physician Instructions: Attending Provider on DC: Jered Wagner MD Discharging Provider: Jered Wagner MD DS: Diagnosis Problem List Completed Was Problem List Reviewed/Reconciled?: Yes Hospital Course Hospital Course Hospital course: Hospital Course Mr. Danielle is a 70 year old gentleman with hx of BPH with urinary retention, HLD, with no hx of prior abdominal surgeries who was found to have dilated loops of small bowel on CTAP, and was admitted for SBO. He was made NPO with NG tube in place to LIS, and then proceeded with gastrogaffin small bowel series, however his obstruction did not resolve. Surgery was consulted and p nhi was taken for exlap. He was found to have perforated appendix and necrotic GB. Appendectomy and cholecystectomy was performed. He endorsed passing some gas but did not have BM after ex lap. he had increased nausea and emesis, subsequent abdominal imaging demonstrated lack of resolution of sbo with persistantly dilated loops of bowel, so OG tube was placed for stomach decompression. Repeat CT AP w con showed that there was a fluid collection in the GB fossa but no abscess. Given the several days of NPO, patient was started on parenteral nutrition through PICC line (PIVs inflitrated several times and per nursing, it was difficult to get access). Nausea and vomiting symptoms subsided and og tube was discontinued and patient completed gastrogaffin small bowel series for a second time during this hospitalization. SBO resolved and pt was slowly reintroduced to diet with clear liquids and IV metaclopramide and diet advanced as tolerated. He continued to have normal bowel movements. He completed a course of IV Zosyn 3.375 q6hrs for 10 days Patient lost weight during admission and was noted to have protein calorie malnutrition, dietitian was consulted given BMI 17 and minimal caloric intake. Patient developed bilateral pneumonia, which was treated with IV abx. He was found to have bilateral pulmonary nodules that were stable, for which we recommend out patient monitoring. Patient was hemodynamically stable, labs were reviewed, pain was well controlled with oral medication, patient denies any shortness of breath and is saturating >94% on RA, is able to ambulate per with assistance from FWW deemed stable and medically cleared for discharge home with home health. Diagnoses SBO s/p ex lap - resolved s/p appendectomy s/p cholecystectomy atelectesis and BL pneumonia - PNA improving Leukocytosis downtrending hyperbillirubenima- resolved Transaminitis- resolved Protein Calorie Malnutrition BMI 17 Hypertension- well controlled GIOVANA - resolved BPH with urinary retention HLD Tobacco Use Disorder BL Pulmonary Nodules - stable Normocytic Anemia Discharge instructions -Please follow up with your surgeon in 1-2 weeks, Dr Weeks [address] [place] [address], please call to make an appointment -May shower. Wear abdominal binder at all times avoid lifting, straining, pulling or pushing for 8 weeks. May take over the counter laxatives if no bowel movement in 2 days. -Continue diet as tolerated. -For pain please take tylenol every 6 hours as needed, and for severe pain, please take NORCO once every 6 hours as needed -Please continue to increase the amount of food that you eat as tolerated. We recommend drinking the calorie rich protien shakes with each meal to help you gain more weight. -please continue to take stool softener, colace 100mg BID, (you can buy over the counter) to help counteract constipation and hard stools. -Follow up with PCP within 1 week of discharge, if you do not have a primary care physician you can come see us at the [facility] by calling [phone] -Continue rest of medications as previously prescribed -Return to the ED or call EMS if symptoms return and/or worsen, if you cannot have a bowel movement for several days and experience severe abdominal pain/discomfort Plan discussed with my attending Dr. Bernard Morris MD PGY1 Time Spent with Patient Time attestation: Total time spent providing and/or coordinating discharge services: Time spent: Greater than 30 minutes Exam Vital Signs Temp Pulse Resp BP Pulse Ox O2 Del Method O2 Flow Rate 97.1 F 92 18 105/67 92 L Room Air 1 05/17/25 04:00 05/17/25 04:39 05/17/25 04:39 05/17/25 04:00 05/17/25 04:00 05/17/25 04:00 05/15/25 20:00 Narrative Exam GENERAL: no acute distress, AAO x3, laying in bed HEENT: Head AT/ NC. Mucous membranes dry. PERRL. temporal wasting NECK: Supple, no lymphadenopathy, no carotid bruits. CARDIOVASCULAR: RRR. Normal S1/S2, No m/r/g. No pitting edema of bilateral LEs. RESPIRATORY: lungs clear with some diminished sounds in the lung bases, satting well on room air GASTROINTESTINAL: Abdomen soft, with midline incision closed with pato, bowel sounds normoactive, tender but no rebound no guarding on exam MUSCULOSKELETAL:? No cyanosis or edema, no visible joint swelling. arthritic hand joints, picc line in place in RUE NEUROLOGICAL: CN II-XII grossly intact. No focal deficits. Sensation intact, symmetric. PSYCHIATRIC: Awake and alert, not agitated, normal mood and affect. SKIN: No obvious rashes, no jaundice, normal turgor. Discharge Plan Plan Patient Disposition: HOME (Self Care) Care Plan Goals: -Please follow up with your surgeon in 1-2 weeks, Dr Weeks [address] [place] [address], please call to make an appointment -May shower. Wear abdominal binder at all times avoid lifting, straining, pulling or pushing for 8 weeks. May take over the counter laxatives if no bowel movement in 2 days. -Continue diet as tolerated. -For pain please take tylenol every 6 hours as needed, and for severe pain, please take NORCO once every 6 hours as needed -Please continue to increase the amount of food that you eat as tolerated. We recommend drinking the calorie rich protien shakes with each meal to help you gain more weight. -please continue to take stool softener, colace 100mg BID, (you can buy over the counter) to help counteract constipation and hard stools. -Follow up with PCP within 1 week of discharge, if you do not have a primary care physician you can come see us at the [facility] by calling [phone] -Continue rest of medications as previously prescribed -Return to the ED or call EMS if symptoms return and/or worsen, if you cannot have a bowel movement for several days and experience severe abdominal pain/discomfort Prescriptions/Referrals Prescriptions/Med Rec: Continued atorvastatin 40 mg Tablet 40 mg PO HS tamsulosin 0.4 mg Capsule 0.4 mg PO QDAY Qty: 30 0RF gabapentin 600 mg tablet 600 mg PO Q12H Patient Comments: TAKE 1/2 TABLET BY MOUTH EVERY MORNING AND 1 TABLET EVERY NIGHT Referrals: No Primary/Family,Physician [Primary Care Provider] Patient/Caregiver Discharge Instructions Discharge Activity: activity as tolerated Education Materials: Small Bowel Obstruction, Abdomen Surg Dc, Cholecystectomy, Appendectomy, Obstruction Intestinal Print Language: Qatari Activity Restrictions/Additional Instructions: May shower. Wear abdominal binder at all times avoid lifting, straining, pulling or pushing for 8 weeks. May take over the counter laxatives if no bowel movement in [address] days[address] Follow up with Dr. Weeks in 2 weeks, call [phone] for an appointment. Continue diet as tolerated. Stand Alone Forms: [facility] Award Info., Patient Portal Info Letter Discharge Order Discharge Orders: Discharge (Routine); Ordered 05/17/25 Ordered By: Melanie Wagner Quality Discharge Quality Measures VTE prophylaxis
[2025-05-17 08:15] LABS: Basophils # (Auto) 0.0 Thou/mm3 (0.0-0.2); Basophils % (Auto) 0 % (0-2.5); Eosinophils # (Auto) 0.0 Thou/mm3 (0.0-0.5); Eosinophils % (Auto) 0 % (0-10); Hematocrit 26.8 % (41.0-53.0); Immature Granulocytes Auto 0.08 Thou/mm3 (0.00-0.00); Lymphocytes # (Auto) 1.4 Thou/mm3 (1.0-4.8); Lymphocytes % (Auto) 13 % (10-50); Mean Corpuscular HGB Conc 32.5 g/dl (31.0-37.0); Mean Corpuscular Hemoglobin 31.3 pg (25.0-35.0); Mean Corpuscular Volume 96 fL (80-100); Monocytes # (Auto) 0.6 Thou/mm3 (0.0-0.8); Monocytes % (Auto) 6 % (0-12); Neutrophils # (Auto) 8.6 Thou/mm3 (1.8-7.7); Neutrophils % (Auto) 80 % (37-80); Nucleated Red Blood Cell # 0.00 Thou/mm3 (0.00-0.00); Nucleated Red Blood Cell % 0 /100 WBC (0); Platelet Count 469 Thou/mm3 (140-440); RDW Standard Deviation 50.3 fL (35.1-43.9); Red Blood Count 2.78 Miln/mm3 (4.50-5.90); White Blood Count 10.8 Thou/mm3 (3.8-10.6)
[2025-05-17 08:24] LABS: Hemoglobin 8.7 g/dL (13.5-16.0)
[2025-05-17] MEDS: TAMSULOSIN HCL 0.4 MG CAPSULE PO (08:42)
[2025-05-17] MEDS: GABAPENTIN 300 MG CAPSULE 600 MG PO (08:42)
--- NOTE | 2025-05-17 14:55 | PC.SS ---
Patient needs a FWW for home. The diagnosis creates mobility limitation that significantly impairs ability to participate in the patients activities of daily living either in their entirety, or in a reasonable time frame. Also the patient is able to safely use the walker and the patient?s mobility is sufficiently resolved with the use of the walker and cane has been ruled out.
== END 2025-05-17 14:52 | disposition home or self-care (01) | DRG 397 ==
LOC: SERX 16:52 → SERHOLD 04-30 06:05 → S3SX 04-30 06:05
PROVIDERS: Nurse Practitioner Family; Radiology Diagnostic Radiology; Surgery; Admitting Provider Internal Medicine; Emergency Provider Emergency Medicine; Visit Provider Internal Medicine
PROC: 0DTJ0ZZ Resection of Appendix, Open Approach (ICD-10-PCS; CPT 49000; principal; 2025-05-01 14:30)
DX: K56.609 Unspecified intestinal obstruction, unspecified as to partial versus complete obstruction (principal); J18.9 Pneumonia, unspecified organism; K55.021 Focal (segmental) acute infarction of small intestine; K35.201 Acute appendicitis with generalized peritonitis, with perforation, without abscess; N17.9 Acute kidney failure, unspecified; K91.89 Other postprocedural complications and disorders of digestive system; E87.0 Hyperosmolality and hypernatremia; E46 Unspecified protein-calorie malnutrition; Z68.1 Body mass index [BMI] 19.9 or less, adult; K81.0 Acute cholecystitis; J98.11 Atelectasis; E78.5 Hyperlipidemia, unspecified; N40.1 Benign prostatic hyperplasia with lower urinary tract symptoms; G62.9 Polyneuropathy, unspecified; F17.200 Nicotine dependence, unspecified, uncomplicated; R91.1 Solitary pulmonary nodule; D64.89 Other specified anemias; K82.A1 Gangrene of gallbladder in cholecystitis; I10 Essential (primary) hypertension; K56.7 Ileus, unspecified; R33.8 Other retention of urine; N41.9 Inflammatory disease of prostate, unspecified; Z71.6 Tobacco abuse counseling; R74.01 Elevation of levels of liver transaminase levels
CPT/HCPCS: 36415; 71045; 74018; 74176; 74177; 74250; 76705; 80053; 80061; 81001; 82378; 83605; 83690; 83735; 84100; 84145; 84478; 85025; 85610; 85730; 87040; 87086; 96361; 96365; 96375; 96376; 97161; 99284; A4649; C1751; C1894; J0131; J0360; J0612; J0694; J1171; J1200; J1642; J1650; J1815; J2270; J2405; J2543; J2704; J2710; J2765; J3010; J3475; J3480; J3490; J7030; J7050; J7070; J7120; Q9963; Q9967; A9270; J1596; J1805; J1920